=== PATIENT | female | born 1960 | race Caucasian/White ===

== ENCOUNTER → 2019-02-17 07:10 | Outpatient (CLI) | payer OTHER, SELFPAY ==
--- NOTE | 2019-02-17 07:17 | BI_ITS ---
MAMMOGRAPHY - BILATERAL SCREENING REASON FOR EXAM: Female, 58 years old. Routine annual screening examination. PERTINENT HISTORY: Grandmother with breast cancer. Remote right stereotactic breast biopsy. TECHNIQUE: Digital bilateral breast lolis (3D mammographic acquisition) in the CC and MLO projections. 2-D mediolateral oblique (MLO) and craniocaudad (CC) views of both breasts were obtained. CAD: Full Field Digital Mammography with Computer Added Detection was performed. COMPARISON: Comparison is made with prior study dated March 05, 2017 and June 04, 2010. FINDINGS: Breast Composition: The breasts are extremely dense, which lowers the sensitivity of mammography. Possible architectural distortion seen in the superior aspect of the left breast on the mediolateral oblique view. The patient will be recalled for compression spot views in the mediolateral oblique and craniocaudad projections. A 90 degree lateral is recommended as well. A tissue clip marker is once again seen in the slightly upper lateral aspect of the right breast. Benign-appearing small right axillary lymph node. No other significant abnormalities are identified. BI/SCREEN MAMM (CAD) W/LOLIS BILAT IMPRESSION: Questionable area of architectural distortion in the superior aspect of the left breast on the MLO view. The patient will be recalled for additional views. Recall Side: Left Breast ASSESSMENT CATEGORY: BIRADS Category 0: Incomplete. Need additional imaging evaluation. A letter regarding these results will be sent to the patient by the facility within 30 days. Approximately 10% of breast cancers are not detected by mammography. A normal mammogram should not delay biopsy of a clinically suspicious abnormality. [id number] Electronically Signed: Piotr Bay, at 10:26 EDT , Service support ,
== END ==
PROVIDERS: Family Provider Family Medicine; PCP Family Medicine; Referring Provider Family Medicine; Visit Provider Family Medicine
DX: Z12.31 Encounter for screening mammogram for malignant neoplasm of breast (principal)
CPT/HCPCS: 77063; 77067

== ENCOUNTER → 2019-02-28 08:32 | Outpatient (CLI) | payer OTHER, SELFPAY ==
--- NOTE | 2019-02-28 08:35 | BI_ITS ---
MAMMOGRAPHY - UNILATERAL DIAGNOSTIC: LEFT BREAST REASON FOR EXAM: Female, 58 years old. Abnormal screening mammogram. PERTINENT HISTORY: Grandmother with breast cancer. TECHNIQUE: Magnification spot views in the MLO and craniocaudad views were obtained. CAD: Full Field Digital Mammography with Computer Added Detection was performed. COMPARISON: Comparison is made with prior mammogram dated February 17, 2019. FINDINGS: Breast Composition: The breasts are extremely dense, which lowers the sensitivity of mammography. There are no dominant masses or suspicious calcifications. No suspicious abnormality is seen. No other significant abnormalities are identified. BI/DIAG MAMM W/CAD, UNILAT IMPRESSION: Stable unilateral diagnostic mammogram. One year follow-up mammogram recommended. (A) ASSESSMENT CATEGORY: BIRADS Category 2: Benign. A letter regarding these results will be sent to the patient by the facility within 30 days. Approximately 10% of breast cancers are not detected by mammography. A normal mammogram should not delay biopsy of a clinically suspicious abnormality. Electronically Signed: Piotr Bay, at 10:36 EDT , Service support ,
--- NOTE | 2019-02-28 09:15 | US_ITS ---
STUDY: ULTRASOUND BREAST - LEFT REASON FOR EXAM: Female, 58 years old. Abnormal screening mammogram. TECHNIQUE: Axial and longitudinal images of the LEFT breast were performed with a high resolution ultrasound transducer. COMPARISON: Comparison is made with the prior mammogram done earlier today as well as February 17, 2019. FINDINGS: LEFT Breast: The upper outer aspect of the left breast was examined by ultrasound. No suspicious abnormality is seen. US/Breast Limited Unilateral IMPRESSION: Unremarkable targeted ultrasound of the upper outer quadrant of the left breast. ASSESSMENT CATEGORY: BIRADS Category 1: Negative. A letter regarding these results will be sent to the patient by the facility within 30 days. Electronically Signed: Piotr Bay, at 10:37 EDT , Service support ,
== END ==
PROVIDERS: Family Provider Family Medicine; PCP Family Medicine; Referring Provider Family Medicine; Visit Provider Family Medicine
DX: R92.8 Other abnormal and inconclusive findings on diagnostic imaging of breast (principal)
CPT/HCPCS: 76642; 77065

== ENCOUNTER → 2021-02-21 07:10 | Outpatient (CLI) | payer OTHER, SELFPAY ==
--- NOTE | 2021-02-21 07:13 | BI_ITS ---
MAMMOGRAPHY - BILATERAL SCREENING REASON FOR EXAM: Female, 60 years old. Routine annual screening examination. PERTINENT HISTORY: Grandmother with breast cancer. History of prior right stereotactic breast biopsy. TECHNIQUE: Digital bilateral breast lolis (3D mammographic acquisition) in the CC and MLO projections. 2-D mediolateral oblique (MLO) and craniocaudad (CC) views of both breasts were obtained. CAD: Full Field Digital Mammography with Computer Added Detection was performed. COMPARISON: Comparison is made with prior study dated 02/17/2019 and 03/05/2017. FINDINGS: Breast Composition: The breasts are extremely dense, which lowers the sensitivity of mammography. There are no dominant masses or suspicious calcifications. A tissue clip marker is seen in the central slightly lateral aspect of the right breast. No other significant abnormalities are identified. There has been no significant change since the prior study. BI/SCRN MAMM (CAD)W/LOLIS BILAT IMPRESSION: Stable bilateral screening mammogram. Yearly follow-up mammogram recommended. (A) ASSESSMENT CATEGORY: BIRADS Category 2: Benign. A letter regarding these results will be sent to the patient by the facility within 30 days. Approximately 10% of breast cancers are not detected by mammography. A normal mammogram should not delay biopsy of a clinically suspicious abnormality. [id number] Electronically Signed: Piotr Bay MD at 9:02 EDT , Service support ,
== END ==
PROVIDERS: PCP Family Medicine; Referring Provider Family Medicine; Visit Provider Family Medicine
DX: Z12.31 Encounter for screening mammogram for malignant neoplasm of breast (principal)
CPT/HCPCS: 77063; 77067

== ENCOUNTER → 2022-03-07 | Outpatient (CLI) | payer OTHER, SELFPAY ==
--- NOTE | 2022-03-07 07:17 | BI_ITS ---
MAMMOGRAPHY - BILATERAL SCREENING REASON FOR EXAM: Female, 61 years old. Routine annual screening examination. PERTINENT HISTORY: Grandmother with breast cancer. Remote right stereotactic breast biopsy. TECHNIQUE: Digital bilateral breast lolis (3D mammographic acquisition) in the CC and MLO projections. 2-D mediolateral oblique (MLO) and craniocaudad (CC) views of both breasts were obtained. CAD: Full Field Digital Mammography with Computer Added Detection was performed. COMPARISON: Comparison is made with prior study dated 02/21/2021 and 02/28/2019. FINDINGS: Breast Composition: The breasts are extremely dense, which lowers the sensitivity of mammography. I suspect a focal area of architectural distortion in the upper the lateral aspect of the left breast. The patient will be recalled for additional views including 90 degree lateral and compression spot views. A tissue clip marker is once again seen in the central slightly lateral aspect of the right breast. No other significant abnormalities are identified. BI/SCRN MAMM (CAD)W/LOLIS BILAT IMPRESSION: I suspect a focal area of architectural distortion in the upper lateral aspect of the left breast as described. The patient will be recalled for additional views including 90 degree lateral and compression spot views. ASSESSMENT CATEGORY: BIRADS Category 0: Incomplete. Need additional imaging evaluation. A letter regarding these results will be sent to the patient by the facility within 30 days. Approximately 10% of breast cancers are not detected by mammography. A normal mammogram should not delay biopsy of a clinically suspicious abnormality. [id number] Electronically Signed: Piotr Bay MD at 8:50 EDT ,
== END | disposition home or self-care (01) ==
LOC: OPBI 07:16
PROVIDERS: PCP Family Medicine; Visit Provider Family Medicine
DX: Z12.31 Encounter for screening mammogram for malignant neoplasm of breast (principal); Z80.3 Family history of malignant neoplasm of breast
CPT/HCPCS: 77063; 77067

== ENCOUNTER → 2022-03-14 | Outpatient (CLI) | payer OTHER, SELFPAY ==
--- NOTE | 2022-03-14 14:22 | BI_ITS ---
UNILATERAL DIAGNOSTIC: LEFT BREAST MAMMOGRAM AND TARGETED ULTRASOUND REASON FOR EXAM: Female, 61 years old. Additional imaging of architectural distortion PERTINENT HISTORY: Grandmother with breast cancer. Remote right stereotactic breast biopsy. TECHNIQUE: Digital unilateral ML, CC, and MLO with spot compression projections. CAD: Full Field Digital Mammography with Computer Added Detection was performed. Diagnostic real-time grayscale sonographic images of the upper breast were also performed. COMPARISON: Screening mammogram from 03/07/2022, 02/21/2021. Left breast diagnostic mammogram and diagnostic ultrasound from 02/28/2019 MAMMOGRAM FINDINGS: Breast Composition: The breasts are extremely dense, which lowers the sensitivity of mammography. There are no dominant masses or suspicious calcifications. No other significant abnormalities are identified. ULTRASOUND FINDINGS: The upper left breast was evaluated with ultrasound. There is dense breast tissue with no suspicious masses identified. No other significant findings. BI/DIAG MAMM W/CAD, UNILAT IMPRESSION: Stable unilateral diagnostic mammogram. One year follow-up mammogram recommended. (A) Negative unilateral upper left breast diagnostic targeted ultrasound. ASSESSMENT CATEGORY: BIRADS Category 1: Negative. A letter regarding these results will be sent to the patient by the facility within 30 days. Approximately 10% of breast cancers are not detected by mammography. A normal mammogram should not delay biopsy of a clinically suspicious abnormality. Electronically Signed: Giovani José Miguel, at 16:17 EDT ,
== END | disposition home or self-care (01) ==
PROVIDERS: PCP Family Medicine; Visit Provider Family Medicine
DX: R92.8 Other abnormal and inconclusive findings on diagnostic imaging of breast (principal)
CPT/HCPCS: 76642; 77065

== ENCOUNTER → 2023-03-17 | Outpatient (CLI) | payer OTHER, SELFPAY ==
--- NOTE | 2023-03-17 09:02 | BI_ITS ---
MAMMOGRAPHY - BILATERAL SCREENING REASON FOR EXAM: Female, 62 years old. Routine annual screening examination. PERTINENT HISTORY: Grandmother with breast cancer. TECHNIQUE: Digital bilateral breast lolis (3D mammographic acquisition) in the CC and MLO projections. 2-D mediolateral oblique (MLO) and craniocaudad (CC) views of both breasts were obtained. CAD: Full Field Digital Mammography with Computer Added Detection was performed. COMPARISON: Comparison is made with prior study dated March 07, 2022 and February 21, 2021. FINDINGS: Breast Composition: The breasts are extremely dense, which lowers the sensitivity of mammography. There are no dominant masses or suspicious calcifications. No other significant abnormalities are identified. There has been no significant change since the prior study. BI/SCRN MAMM (CAD)W/LOLIS BILAT IMPRESSION: Stable bilateral screening mammogram. Yearly follow-up mammogram recommended. (A) ASSESSMENT CATEGORY: BIRADS Category 1: Negative. A letter regarding these results will be sent to the patient by the facility within 30 days. Approximately 10% of breast cancers are not detected by mammography. A normal mammogram should not delay biopsy of a clinically suspicious abnormality. [id number] Electronically Signed: Piotr Bay MD at 10:35 EDT ,
== END | disposition home or self-care (01) ==
PROVIDERS: PCP Family Medicine; Referring Provider Family Medicine; Visit Provider Family Medicine
DX: Z12.31 Encounter for screening mammogram for malignant neoplasm of breast (principal); Z80.3 Family history of malignant neoplasm of breast
CPT/HCPCS: 77063; 77067

== ENCOUNTER → 2024-03-22 | Outpatient (CLI) | payer MEDICARE, SELFPAY ==
--- NOTE | 2024-03-22 07:56 | BI_ITS ---
MAMMOGRAPHY - BILATERAL SCREENING REASON FOR EXAM: Female, 63 years old. Routine annual screening examination. PERTINENT HISTORY: Grandmother with breast cancer. Prior right stereotactic breast biopsy. TECHNIQUE: Digital bilateral breast lolis (3D mammographic acquisition) in the CC and MLO projections. 2-D mediolateral oblique (MLO) and craniocaudad (CC) views of both breasts were obtained. CAD: Full Field Digital Mammography with Computer Added Detection was performed. COMPARISON: Comparison is made with prior study dated March 17, 2023 and March 07, 2022 FINDINGS: Breast Composition: The breasts are extremely dense, which lowers the sensitivity of mammography. There are no dominant masses or suspicious calcifications. A tissue clip marker is seen in the central lateral aspect of the right breast. No other significant abnormalities are identified. There has been no significant change since the prior study. BI/SCRN MAMM (CAD)W/LOLIS BILAT IMPRESSION: Stable bilateral screening mammogram. Yearly follow-up mammogram recommended. (A) ASSESSMENT CATEGORY: BIRADS Category 2: Benign. A letter regarding these results will be sent to the patient by the facility within 30 days. Approximately 10% of breast cancers are not detected by mammography. A normal mammogram should not delay biopsy of a clinically suspicious abnormality. [id number] Electronically Signed: Piotr Bay MD at 10:11 EDT ,
== END | disposition home or self-care (01) ==
PROVIDERS: PCP Family Medicine; Referring Provider Family Medicine; Visit Provider Family Medicine
DX: Z12.31 Encounter for screening mammogram for malignant neoplasm of breast (principal); Z80.3 Family history of malignant neoplasm of breast
CPT/HCPCS: 77063; 77067

== ENCOUNTER → 2025-04-13 | Outpatient (CLI) | payer MEDICARE, SELFPAY ==
--- NOTE | 2025-04-13 07:25 | BI_ITS ---
EXAM: SCRN MAMM (CAD)W/LOLIS BILAT DATE: 04/13/2025 CLINICAL HISTORY: F, Age 64 y/o , SCREENING Grandmother with breast cancer history of prior right stereotactic breast biopsy. TECHNIQUE: Procedure Code: [id number] Modality: MG Procedure: SCRN MAMM (CAD)W/LOLIS BILAT COMPARISON: Prior exam(s) dated March 22, 2024.. FINDINGS: TISSUE DENSITY: The breasts are extremely dense, which lowers the sensitivity of mammography. Bilateral Breast Mammographic Findings: No significant masses, calcifications or other abnormalities are identified. A tissue clip marker is once again seen in the slightly upper lateral aspect of the right breast. No suspicious masses, areas of developing architectural distortion, or suspicious calcifications. There has been no significant interval change. BI/SCRN MAMM (CAD)W/LOLIS BILAT IMPRESSION: Stable bilateral screening mammogram. OVERALL FINAL ASSESSMENT BI-RADS 2: BENIGN RECOMMENDATION: Routine annual follow-up in 1 Year A letter with findings and recommendations will be mailed to the patient. Reading Location: [id number]
--- OUTSIDE RECORDS SUMMARY | 2025-04-13 07:30 | XMS RPT_ITS | CCD ---
Author Organization [facility] Inform ion Partnership [facility] Care Team Providers Care Information Coordinator Name Role Phone Meera Deion RICARDO Primary Care Provider Unavailable Primary Care Provider Unavailabl e SELF Referring Unavailable Christopherboston Deion RICARDO Primary Care Provider Meera RICARDODeion Primary Care Provider OKSANAA, DEION Primary Care Unavailable ED GONZALEZ Attending Unavailable FREDY MARR Attending Unavailable PETRILLA, DEION Primary Care Unavailable PETRILLA, DEION Attending Unavailable PETRILLA, DEION Primary Care Unavailable ED GONAZLEZ Referring Unavailable PETRILLA, DEION Primary Care Unavailable MIMI ZEPEDA Attending Unavailable ZEPEDA, MIMI Referring Unavailable PETRILLA, DEION Primary Care Unavailable PETRILLA, DEION Attending Unavailable PETRILLA, DEION Primary Care Unavailable MIMI ZEPEDA Attending Unavailable PETRIBIRDIEA, DEION Primary Care Unavailable Petrilla, Dieon Referring Unavailable Petrilla, Deion Attending Unavailable Petrilla, Deion Primary Care Unavailable Medications Current Medications Medication Drug Class(es) Dates Sig (Normalized) Sig (Original) aspirin 81 mg delayed release oral tablet (20 sources) Platelet Aggregation Inhibitor, Nonsteroidal Anti-inflammatory Drug Start: 02-06-2021 take 1 tablet by mouth once daily aspirin 81 MG EC tablet Take 1 tablet by mouth daily. 02/06/2021 Active atorvastatin 10 mg oral tablet (20 sources) HMG-CoA Reductase Inhibitor Start: 01-31-2022 End: 01-23-2025 atorvastatin (Lipitor) 10 MG tablet TAKE 1 TABLET DAILY IN THE EVENING AFTER SUPPER 90 tablet 1 01/23/2025 Active baclofen 10 mg oral tablet (11 sources) gamma-Aminobutyric Acid-ergic Agonist Start: 06-23-2024 End: 05-10-2025 take 1 tablet by mouth twice daily baclofen (Lioresal) 10 MG tablet Take 1 tablet (10 mg) by mouth 2 times daily. 60 tablet 04/10/2025 05/10/2025 Active cholecalciferol 0.025 mg oral tablet (20 sources) Vitamin D Start: 01-31-2022 take 1 tablet by mouth once daily cholecalciferol (Vitamin D-3) 25 MCG (1000 UT) tablet Take 1 tablet by mouth daily. 01/31/2022 Active fluticasone propionate 0.05 mg/actuat metered dose nasal spray (16 sources) Corticosteroid Start: 05-04-2024 End: 05-04-2025 take 2 spray(s) nasal route once daily fluticasone (Flonase) 50 MCG/ACT nasal spray Administer 2 sprays into each nostril daily. Shake gently. Before first use, prime pump. After use, clean tip and replace cap. 16 g 5 05/04/2024 05/04/2025 Active levothyroxine sodium 0.025 mg oral tablet (20 sources) l-Thyroxine Start: 03-03-2024 End: 06-23-2025 take 1 tablet by mouth once daily levothyroxine (Synthroid, Levoxyl) 25 MCG tablet Take 1 tablet (25 mcg) by mouth daily. 90 tablet 3 06/23/2024 06/23/2025 Active 24 hr metoprolol succinate 200 mg extended release oral tablet (20 sources) beta-Adrenergic Suad Start: 03-15-2024 End: 03-16-2025 metoprolol succinate XL (Toprol-XL) 200 MG 24 hr tablet TAKE 1 TABLET DAILY (DO NOT CRUSH OR CHEW) 90 tablet 3 02/20/2025 Active Start: 06-21-2022 End: 03-16-2024 take 1 tablet by mouth once daily metoprolol succinate XL (Toprol-XL) 100 MG 24 hr tablet Take 1 tablet (100 mg) by mouth daily for 90 doses. 90 tablet 1 08/11/2022 11/09/2022 Active take 1 tablet by jacki th twice daily metoprolol tartrate, short acting, (LOPRESSOR) 25 mg tablet Take 25 mg by mouth two times a day. Active Multiple Vitamin (Multi-Vitamin) tablet (20 sources) take 1 tablet by jacki th in the morning Multiple Vitamin (Multi-Vitamin) tablet Take 1 tablet by mouth in the morning. Active take 1 tablet by mouth in the mo rning Multiple Vitamin (Multi-Vitamin) tablet Take 1 tablet by mouth in the morning. 0 Active multivitamin tablet (2 sources) take 1 tablet by mouth once daily multivitamin tablet Take 1 tablet by mouth once daily. Active ondansetron 4 mg oral tablet (5 sources) Serotonin-3 Receptor Antagonist Start: End: take 1 tablet by mouth every eight hours as needed for nausea and vomiting and nausea and nausea ondansetron (Zofran) 4 MG tablet Indications: Nausea Take 1 tablet (4 mg) by mouth every 8 hours as needed for nausea or vomiting for up to 3 days. 9 tablet 05/15/2024 05/18/2024 Active Start: 05-15-2024 End: 05-15-2024 4 mg, IntraVENous, Once, On 05/15/24 at 0745, For 1 dose spironolactone 50 mg oral tablet (20 sources) Aldosterone Antagonist Start: 01-31-2022 End: 01-23-2025 spironolactone (Aldactone) 50 MG tablet TAKE 1 TABLET DAILY 90 tablet 1 01/23/2025 Active Completed/Discontinued Medications Medication Drug Class(es) Dates Sig (Normalized) Sig (Original) cefTRIAXone (Rocephin) 1,000 mg in sodium chloride 0.9 % 50 mL IVPB Mini-Bag Plus (2 sources) Start: 05-15-2024 End: 05-15-2024 1,000 mg, IntraVENous, at 100 mL/hr, Administer over 30 Minutes, Once, On 05/15/24 at 0810, For 1 dose, Mini-Bag Plus bag, Suspected Indication (Select all that apply): Urinary Tract Infection cephalexin 500 mg oral capsule (6 sources) Cephalosporin Antibacterial Start: 05-15-2024 End: 06-23-2024 take 1 capsule by mouth twice daily cephalexin (Keflex) 500 MG capsule Indications: Left lower quadrant abdominal pain Take 1 capsule (500 mg) by mouth 2 times daily for 3 days. 6 capsule 05/18/2024 06/23/2024 Discontinued (Therapy completed) iopamidol (Isovue-370) 76 % injection 75 mL (2 sources) Start: 05-15-2024 End: 05-15-2024 take 75 mL intravenously once as needed 75 mL, IntraVENous, IMG once PRN, contrast, Starting on 05/15/24 at 0727, For 1 dose nitrofurantoin, macrocrystals 25 mg / nitrofurantoin, monohydrate 75 mg oral capsule (8 sources) Nitrofuran Antibacterial Start: 05-01-2024 End: 05-06-2024 take 1 capsule by mouth in the morning nitrofurantoin, macrocrystal-monohy drate, (Macrobid) 100 MG capsule Take 100 mg by mouth in the morning and 100 mg in the evening. 05/01/2024 05/06/2024 phenazopyridine hydrochloride 200 mg delayed release oral tablet (10 sources) Start: 05-03-2024 End: 06-23-2024 take 1 tablet by mouth three times daily as needed for muscle spasms phenazopyridine (Pyridium) 200 MG tablet Take 1 tablet (200 mg) by mouth 3 times daily as needed for bladder spasms. 30 tablet 05/03/2024 06/23/2024 Discontinued (Therapy completed) Problems Active Problems Problem Classification Problem Date Documented Da te Episodic/Chronic Disorders of lipid metabolism (20 sources) Hypercholesterolem ia; Translations: [Pure hypercholesterolem ia, unspecified] Onset: 10-02-2021 02-10-2023 Chronic Essential hypertension (20 sources) Essential hypertension; Translations: [Essential (primary) hypertension] Onset: 02-16-2017 02-10-2023 Chronic Other and unspecified benign neoplasm (1 source) Dysplastic nevus of skin; Translations: [Melanocytic nevi, unspecified] 05-03-2024 Episodic Other screening for suspected conditions (not mental disorders or infectious disease) (6 sources) Patient encounter status; Translations: [Encounter for screening mammogram for malignant neoplasm of breast] Onset: 04-10-2025 02-10-2023 Episodic Paralysis (20 sources) Hemiplegic cerebral palsy; Translations: [Other cerebral palsy] Onset: 02-16-2017 05-15-2022 Chronic Thyroid disorders (20 sources) Hypothyroidism; Translations: [Hypothyroidism, unspecified] Onset: 08-03-2023 04-24-2024 Chronic Past or Other Problems Problem Classification Problem Date Documented Da te Episodic/Chronic Abdominal pain (11 sources) Flank pain; Translations: [Unspecified abdominal pain] Onset: 05-03-2024 05-03-2024 Episodic Genitourinary symptoms and ill-defined conditions (4 sources) Dysuria; Translations: [Dysuria] Onset: 05-03-2024 05-01-2024 Episodic Nausea and vomiting (4 sources) Nausea; Translations: [Nausea] Onset: 05-15-2024 05-15-2024 Episodic Other and unspecified benign neoplasm (2 sources) Melanocytic nevi, unspecified; Translations: [Melanocytic nevi, unspecified] Onset: 05-03-2024 Episodic Other connective tissue disease (10 sources) Spasm of cervical paraspinous muscle; Translations: [Other muscle spasm] Onset: 06-23-2024 06-23-2024 Episodic Other connective tissue disease (2 sources) Other muscle spasm; Translations: [Other muscle spasm] Onset: 06-23-2024 Episodic Residual codes; unclassified (20 sources) Family history of breast cancer; Translations: [Family history of malignant neoplasm of breast] Onset: 08-07-2021 05-15-2022 Episodic Residual codes; unclassified (20 sources) FH: Alzheimer's disease; Translations: [Family history of epilepsy and other diseases of the nervous system] Onset: 02-06-2020 05-15-2022 Episodic Urinary tract infections (4 sources) Urinary tract infectious disease; Translations: [Urinary tract infection, site not specified] Onset: 05-15-2024 05-15-2024 Episodic Results Test Name Value Interpretation Reference Range Facility [facility] 04-10-2025 36 Recent Visits Date Type Provider Dept 08/25/24 Office Visit Deion Estes, [facility] 06/23/24 Office Visit Deion Estes DO [facility] 05/18/24 Office Visit Fredy Marr PA-C [facility] 05/03/24 Office Visit Mimi Zepeda, [facility] Showing recent visits within past 365 days and meeting all other requirements Future Appointments No visits were found meeting these conditions. Showing future appointments within next 90 days and meeting all other requirements Requested Prescriptions Pending Prescriptions Disp Refills baclofen (Lioresal) 10 MG tablet [Pharmacy Med Name: BACLOFEN 10 MG TABLET] 180 tablet 1 Sig: TAKE 1 TABLET BY MOUTH TWICE A DAY Provider: Deion Estes DO Verified pharmacy: yes Verified day(s) supplied: yes Verified refill(s) needed (previous prescription showing no refills in chart): Yes Have you received any controlled medications from any other provider? N/A Overdue for visit: No If yes - patient scheduled? No Most recent labs completed in chart? N/A [facility] 36on 04-04-2025 36 Faxed and confirmed [facility] 36 Name of caller: Joe radha Contact phone number: [phone] Relationship to Patient: patient Provider: Dr Estes Practice: [facility] Chief Complaint/Reason for Call: José called stating she needs her mammogram order sent to [facility]. Please advise. Best time of day caller can be reached: any Patient advised that office/PCP has 24-48 business hours to return their call: Yes [facility] 36on 03-06-2025 36 Patient aware. [facility] 36 Name of caller: Joe radha Contact phone number: [phone] Relationship to Patient: patient Provider: Meera Practice: [facility] Chief Complaint/Reason for Call: Pt states it is time to get her yearly mammogram and would like Dr Estes to place that order. Please call pt when this order has been placed so she can schedule. Best time of day caller can be reached: ANY Patient advised that office/PCP has 24-48 business hours to return their call: Yes [facility] 36on 02-20-2025 36 Recent Visits Date Type Provider Dept 08/25/24 Office Visit Deion Estes, DO [facility] 06/23/24 Office Visit Deion Estes, DO [facility] 05/18/24 Office Visit Fredy Marr PA-C [facility] 05/03/24 Office Visit Mimi Zepeda, DO [facility] 02/23/24 Office Visit Deion Estes, DO [facility] Showing recent visits within past 365 days and meeting all other requirements Future Appointments Date Type Provider Dept 04/05/25 Appointment Deion Estes, DO [facility] Showing future appointments within next 90 days and meeting all other requirements Requested Prescriptions Pending Prescriptions Disp Refills metoprolol succinate XL (Toprol-XL) 200 MG 24 hr tablet [Pharmacy Med Name: METOPROLOL SUCCINATE ER TABS 200MG] 90 tablet 3 Sig: TAKE 1 TABLET DAILY (DO NOT CRUSH OR CHEW) Provider: Deion Estes DO Verified pharmacy: yes Verified day(s) supplied: yes Verified refill(s) needed (previous prescription showing no refills in chart): Yes Have you received any controlled medications from any other provider? N/A Overdue for visit: No If yes - patient scheduled? Yes Most recent labs completed in chart? Yes Hypertension: Lab Results Component Value Date NA 135 05/15/2024 K 4.5 05/15/2024 EGFR 66.6 05/15/2024 BUN 23 (H) 05/15/2024 CREATININE 0.95 05/15/2024 [facility] 36on 01-23-2025 36 Recent Visits Date Type Provider Dept 08/25/24 Office Visit Deion Estes, DO [facility] 06/23/24 Office Visit Deion sEtes, DO [facility] 05/18/24 Office Visit Fredy Marr PA-C [facility] 05/03/24 Office Visit Mimi Zepeda, DO [facility] 02/23/24 Office Visit Deion Estes DO [facility] Showing recent visits within past 365 days and meeting all other requirements Future Appointments Date Type Provider Dept 02/27/25 Appointment Deion Estes DO [facility] Showing future appointments within next 90 days and meeting all other requirements Requested Prescriptions Pending Prescriptions Disp Refills atorvastatin (Lipitor) 10 MG tablet [Pharmacy Med Name: ATORVASTATIN TABS 10MG] 90 tablet 3 Sig: TAKE 1 TABLET DAILY IN THE EVENING AFTER SUPPER spironolactone (Aldactone) 50 MG tablet [Pharmacy Med Name: SPIRONOLACTONE TABS 50MG] 90 tablet 3 Sig: TAKE 1 TABLET DAILY Provider: Deion Estes DO Verified pharmacy: yes Verified day(s) supplied: yes Verified refill(s) needed (previous prescription showing no refills in chart): Yes Have you received any controlled medications from any other provider? N/A Overdue for visit: No If yes - patient scheduled? Yes Most recent labs completed in chart? Yes Hypertension: Lab Results Component Value Date NA 135 05/15/2024 K 4.5 05/15/2024 EGFR 66.6 05/15/2024 BUN 23 (H) 05/15/2024 CREATININE 0.95 05/15/2024 and Cholesterol: Lab Results Component Value Date CHOLESTEROLT 155 02/23/2024 HDLCHOLESTER 66 02/23/2024 TRIGLYCERIDE 124 02/23/2024 LDLCHOLESTER 68 02/23/2024 CHOLHDLCRATI 2.3 02/23/2024 NONHDLCHOLES 89 02/23/2024 [facility] 36on 10-17-2024 36 Recent Visits Date Type Provider Dept 08/25/24 Office Visit Deion Estes, DO [facility] 06/23/24 Office Visit Deion Estes, DO [facility] 05/18/24 Office Visit Fredy Marr PA-C [facility] 05/03/24 Office Visit Mimi Zepeda, [facility] 02/23/24 Office Visit Deion Estes, [facility] Showing recent visits within past 365 days and meeting all other requirements Future Appointments No visits were found meeting these conditions. Showing future appointments within next 90 days and meeting all other requirements Requested Prescriptions Pending Prescriptions Disp Refills baclofen (Lioresal) 10 MG tablet [Pharmacy Med Name: BACLOFEN 10 MG TABLET] 180 tablet 1 Sig: TAKE 1 TABLET BY MOUTH TWICE A DAY Provider: Deion Estes DO Verified pharmacy: yes Verified day(s) supplied: yes Verified refill(s) needed (previous prescription showing no refills in chart): Yes Have you received any controlled medications from any other provider? No Overdue for visit: No If yes - patient scheduled? Yes Most recent labs completed in chart? N/A None [facility] 37on 08-25-2024 37 Call with BP reading s or stop in for BP ch 4 wks [facility] Office Visiton 08-25-2024 Follow-up visit [id number] José Jiménez 1960 F Date Provider Department Center 08/25/2024 DEION GARCIA [facility] Family History Problem Relation Age of Onset Hypertension Mother Comments: advanced dementia 85 in 01/19 Dementia Mother 78 Hypertension Father Comments: CRF Coronary artery disease Father 70 Comments: CABG smoker Prostate cancer Father Comments: at age 81, in 2013 Other Sister Comments: divert ds, [place] Stroke Maternal Grandmother Comments: in 60s Coronary artery disease Maternal Grandfather Comments: in 60s Breast cancer Paternal Grandmother Comments: age 89 old age Coronary artery disease Paternal Grandfather Comments: in 70 Family Status - Relation Status Age at Mother Father Sister Alive Maternal Grandmother Maternal Grandfather Paternal Grandmother Paternal Grandfather Level of Service:63881 [place] OFFICE/OUTPATIENT ESTABLISHED MOD MDM 30 MIN Reason for Visit and Comments: Follow-up [843773] - Med Check [facility] Progress Noteon 08-25-2024 Progress Note [facility] - [address] [facility] [id number] Visit type: Established Patient Reason for Visit: Follow-up (Med Check) Assessment / Plan: José was seen today for follow-up. Diagnoses and all orders for this visit: Essential hypertension (Primary) Comments: Generally well-controlled at home, BP check 4 weeks continue metoprolol and Aldactone Acquired hypothyroidism Comments: Stable on Levothyroid Hypercholesterolemia Comments: Stable on Lipitor Cerebral palsy, hemiplegic (CMS/HCC) (HCC) Comments: stable on Baclofen, stretches, water aerobics Subjective: Patient ID: José Jiménez is a 64 y.o. female. 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 She has done very well on the baclofen twice daily. Goes to water aerobics and does stretches. Review of Systems no recent earache sore throat or cough. Had a mild cold a few months ago. No purulent phlegm or fever. Denies chest pain palpitations or dyspnea on exertion. No heartburn or abdominal pain. Bowels are regular no melena or blood. No recurrent dysuria. Due for Cologuard exam in the fall. Mammogram up-to-date. No new concerns. She is looking forward to her retiring in about a year. No Known Allergies Current Outpatient Medications on File Prior to Visit Medication Sig Dispense Refill aspirin 81 MG EC tablet Take 1 tablet by mouth daily. atorvastatin (Lipitor) 10 MG tablet TAKE 1 TABLET DAILY IN THE EVENING AFTER SUPPER 90 tablet 3 baclofen (Lioresal) 10 MG tablet Take 1 tablet (10 mg) by mouth 2 times daily. 60 tablet 5 cholecalciferol (Vitamin D-3) 25 MCG (1000 UT) tablet Take 1 tablet by mouth daily. fluticasone (Flonase) 50 MCG/ACT nasal spray Administer 2 sprays into each nostril daily. Shake gently. Before first use, prime pump. After use, clean tip and replace cap. 16 g 5 levothyroxine (Synthroid, Levoxyl) 25 MCG tablet Take 1 tablet (25 mcg) by mouth daily. 90 tablet 3 metoprolol succinate XL (Toprol-XL) 200 MG 24 hr tablet TAKE 1 TABLET DAILY (DO NOT CRUSH OR CHEW) 90 tablet 1 Multiple Vitamin (Multi-Vitamin) tablet Take 1 tablet by mouth in the morning. spironolactone (Aldactone) 50 MG tablet TAKE 1 TABLET DAILY 90 tablet 3 [DISCONTINUED] metoprolol succinate XL (Toprol-XL) 200 MG 24 hr tablet Take 1 tablet (200 mg) by mouth daily. Do not crush or chew. 90 tablet 1 No current facility-administered medications on file prior to visit. Patient Active Problem List Diagnosis Family history of breast cancer Hypercholesterolemia Family history of Alzheimer's disease Essential hypertension Cerebral palsy, hemiplegic (CMS/HCC) (HCC) Hypothyroidism Cervical paraspinal muscle spasm Social History Tobacco Use Smoking status: Never Smokeless tobacco: Never Substance Use Topics Alcohol use: No Alcohol/week: 0.0 standard drinks of alcohol Past Surgical History: Procedure Laterality Date BREAST BIOPSY Right 2007 CATARACT EXTRACTION W/ INTRAOCULAR LENS IMPLANT, BILATERAL 12/2022 Dr. Ledesma, [place] WRIST TENDON SURGERY (HISTORICAL) Left 2009 Family History Problem Relation Name Age of Onset Hypertension Mother advanced dementia 85 in 01/19 Dementia Mother 78 Hypertension Father CRF Coronary artery disease Father 70 CABG smoker Prostate cancer Father at age 81, in 2013 Other ([id number]) Sister Ama Hernandez divert ds, [place] Stroke Maternal Grandmother in 60s Coronary artery disease Maternal Grandfather in 60s Breast cancer Paternal Grandmother Joi age 89 old age Coronary artery disease Paternal Grandfather in 70 Objective: BP (!) 144/78 Pulse 68 Temp 36.2 ?C (97.1 ?F) (Temporal) Ht 5' 2 (1.575 m) Wt 155 lb 9.6 oz (70.6 kg) SpO2 96% BMI 28.46 kg/m? Physical Exam very pleasant alert and engaging. Normal eardrums and oropharynx. No neck masses JVD adenopathy or thyroid lesions. No carotid bruits. Heart is regular without ectopy but she does have a faint midsystolic murmur heard at the right second intercostal space lungs are clear. Abdomen soft nontender without pain hepatosplenomegaly or masses. Trace pretibial edema is chronic. Her left hemiaplasia is stable. She does note less facial and neck spasm on her bike often. Reviewed past CT of the abdomen. Resolved UTI. [facility] 36on 08-24-2024 36 Recent Visits Date Type Provider Dept 06/23/24 Office Visit Deion Estes, [facility] 05/18/24 [facility]24 Office Visit Mimi Zepeda, DO [facility] 02/23/24 Office Visit Deion Estes DO [facility] Showing recent visits within past 365 days and meeting all other requirements Future Appointments Date Type Provider Dept 08/25/24 Appointment Deion Estes DO [facility] Showing future appointments within next 90 days and meeting all other requirements Requested Prescriptions Pending Prescriptions Disp Refills metoprolol succinate XL (Toprol-XL) 200 MG 24 hr tablet [Pharmacy Med Name: METOPROLOL SUCCINATE ER TABS 200MG] 90 tablet 3 Sig: TAKE 1 TABLET DAILY (DO NOT CRUSH OR CHEW) Provider: Deion Estes DO Verified pharmacy: yes Verified day(s) supplied: yes Verified refill(s) needed (previous prescription showing no refills in chart): Yes Have you received any controlled medications from any other provider? N/A Overdue for visit: No If yes - patient scheduled? Yes Most recent labs completed in chart? Yes Hypertension: Lab Results Component Value Date NA 135 05/15/2024 K 4.5 05/15/2024 EGFR 66.6 05/15/2024 BUN 23 (H) 05/15/2024 CREATININE 0.95 05/15/2024 [facility] 36on 07-04-2024 36 Orders cancelled [facility] 36 Name of caller: Joe garcia Contact phone number: [phone] Relationship to Patient: patient Provider: Dr. Estes Practice: [facility] Chief Complaint/Reason for Call: pt called and wanted to inform Dr. Estes that baclofen (Lioresal) 10 MG tablet is working for her. Best time of day caller can be reached: any Patient advised that office/PCP has 24-48 business hours to return their call: N/A [facility] 36 yes [facility] 36on 07-03-2024 36 We have been unable to reach your patient to schedule their testing. Test Name: CT ABDOMEN PELVIS W CONTRAST 2nd attempt//Reactivityhart message//TE to office//07.03.24 KGK 1st attempt // left message asking for a call back // [facility] 05/20/24 [facility] 37on 06-23-2024 37 Personalized Preventative Plan for José Alarcon Tino - 06/23/2024 Medicare offers a range of preventative health benefits. Some of the tests and screenings are paid in full while others may be subject to a deductible, co-insurance, and / or copay. Some of these benefits include a comprehensive review of your medical history including lifestyle, illnesses that may run in your family, and various assessments and screenings as appropriate. After reviewing your medical record and screening and assessments performed today, your provider may have ordered immunizations, labs, imaging, and / or referrals for you. A list of these orders (if applicable) as well as your Preventative Care list are included within your After Visit Summary for your review. Other Preventative Recommendations: A preventive eye exam by an exercise equipment specialist is recommended every 1-2 years to screen for glaucoma, cataracts, macular degeneration, and other eye disorders. A preventive dental visit is recommended every 6 months. Try to get at least 150 minutes of exercise per week or 10,000 steps per day on a pedometer. You need 1200-1500mg of calcium and [id number] international units of vitamin D per day. It is possible to meet your calcium requirement with diet alone, but a vitamin D supplement is usually necessary to meet this goal. When exposed to the sun, use a sunscreen that protects against both UVA and UVB radiation with an SPF of 30 or greater. Reapply every 2-3 hours or after sweating, drying off with a towel, or swimming. Always wear a seat belt when traveling in a car. Always wear a helmet when riding a bicycle or a motorcycle Normal [facility] ECG 12 lead - CLINIC PERFORM EDon 06-23-2024 [facility] Office Visiton 06-23-2024 Follow-up visit [id number] José Jiménez 1960 F Date Provider Department Center 06/23/2024 [id number] LAUREN [facility] Family History Problem Relation Age of Onset Hypertension Mother Comments: advanced dementia 85 in 01/19 Dementia Mother 78 Hypertension Father Comments: CRF Coronary artery disease Father 70 Comments: CABG smoker Prostate cancer Father Comments: at age 81, in 2013 Other Sister Comments: divert ds, [place] Stroke Maternal Grandmother Comments: in 60s Coronary artery disease Maternal Grandfather Comments: in 60s Breast cancer Paternal Grandmother Comments: age 89 old age Coronary artery disease Paternal Grandfather Comments: in 70 Family Status - Relation Status Age at Mother Father Sister Alive Maternal Grandmother Maternal Grandfather Paternal Grandmother Paternal Grandfather Level of Service:G0438 [place] PPPS, INITIAL VISIT Reason for Visit and Comments: Welcome To Medicare [675] Flu Vaccine [189] Normal [facility] Progress Noteon 06-23-2024 Progress Note [facility] - [address] [facility] [address] Dept: [phone] Dept Chief Complaint: José Jiménez is an 63 y.o. female here for an annual wellness visit. I present the patient with history of cerebral palsy with a left hemiplegai presents for first-time annual wellness exam. Past medical, surgical, family and social history reviewed and chart updated. Breast cancer screening up-to-date. Colon cancer screening due next year Assessment/Plan : Problem List Items Addressed This Visit Hypercholesterolemia Essential hypertension Cerebral palsy, hemiplegic (CMS/HCC) (HCC) Hypothyroidism Cervical paraspinal muscle spasm Other Visit Diagnoses Encounter for initial annual wellness visit (AWV) in Medicare patient - Primary Medicare welcome visit Relevant Orders ECG 12 lead - CLINIC PERFORMED (Completed) I have reviewed and reconciled the medication list with the patient today. Current Outpatient Medications Medication Sig Dispense Refill aspirin 81 MG EC tablet Take 1 tablet by mouth daily. atorvastatin (Lipitor) 10 MG tablet TAKE 1 TABLET DAILY IN THE EVENING AFTER SUPPER 90 tablet 3 cholecalciferol (Vitamin D-3) 25 MCG (1000 UT) tablet Take 1 tablet by mouth daily. fluticasone (Flonase) 50 MCG/ACT nasal spray Administer 2 sprays into each nostril daily. Shake gently. Before first use, prime pump. After use, clean tip and replace cap. 16 g 5 metoprolol succinate XL (Toprol-XL) 200 MG 24 hr tablet Take 1 tablet (200 mg) by mouth daily. Do not crush or chew. 90 tablet 1 Multiple Vitamin (Multi-Vitamin) tablet Take 1 tablet by mouth in the morning. spironolactone (Aldactone) 50 MG tablet TAKE 1 TABLET DAILY 90 tablet 3 baclofen (Lioresal) 10 MG tablet Take 1 tablet (10 mg) by mouth 2 times daily. 60 tablet 5 levothyroxine (Synthroid, Levoxyl) 25 MCG tablet Take 1 tablet (25 mcg) by mouth daily. 90 tablet 3 No current facility-administered medications for this visit. Also reviewed during this visit: Med Hx Surg Hx Fam Hx The following health maintenance schedule was reviewed with the patient and provided in printed form in the after visit summary: Health Maintenance Topic Date Due Medicare Initial Physical (IPPE) Never done Bone Density Scan Never done MMR Vaccines (1 of 1 - Standard series) Never done Hepatitis C Screening Never done Diabetes Screening Never done DTaP/Tdap/Td Vaccines (1 - Tdap) Never done Cervical Cancer Screening Never done Zoster Vaccines (1 of 2) Never done Medicare Advantage Annual Wellness Visit Never done COVID-19 Vaccine ( - 2023- season) 2024 Mammogram 03/22/2025 TSH Level 04/20/2025 Depression Screening 06/23/2025 Colorectal Cancer Screening 09/16/2028 Lipid Panel 02/22/2029 RSV Immunization for Adults (1 - 1-dose 75+ series) 2033 Influenza Vaccine Completed Pneumococcal Vaccine: 65+ Years Completed RSV Immunization under 20 Months Aged Out HIB Vaccines Aged Out Hepatitis B Vaccines Aged Out IPV Vaccines Aged Out Hepatitis A Vaccines Aged Out Meningococcal Vaccine Aged Out Rotavirus Vaccines Aged Out HPV Vaccines Aged Out List of current healthcare providers: Patient Care Team: Deion Estes DO as PCP - General Orders Placed This Encounter Procedures Flu vaccine (FLUAD), trivalent, adjuvanted, preservative-free (ages 65+) ECG 12 lead - CLINIC PERFORMED Order Specific Question: Reason for exam: Answer: Other Order Specific Question: Explanatory comment: Answer: medicare annual wellness Review of Systems no recent earache sore throat or cough. Recent UTI symptoms resolved. No constitutional symptoms. Denies chest pain shortness of breath or cough. No dysphagia or abdominal pain. Bowels are regular. No melena or blood. No breast complaints. No postmenopausal vaginal bleeding. Her only concerns today's have months of spasm of the left side of her neck. History of substantial left extremity spasm and contracture of the left hand. No true radicular symptoms of the hand or fingers. No change in vision or speech. Physical Exam very pleasant cooperative. Normal ENT. Normal eardrums and oropharynx. No carotid bruits neck masses or thyroid lesions. Heart is regular without gallops or murmurs. Lungs are clear. Abdomen without pain hepatosplenomegaly or masses. No bruits. There is some twitching over the left side of her face which is chronic. Negative Spurling's. Upper extremity strength is actually pretty good except of the left hand contraction. Reflexes are hyperactive on the left. She has some spasm of the left lower extremity as well. No Vivian's. No Babinski. Objective : BP 132/78 Pulse 68 Temp 37 ?C (98.6 ?F) (Temporal) Ht 5' 2 (1.575 m) Wt 156 lb (70.8 kg) SpO2 97% BMI 28.53 kg/m? Vision Screening Right eye Left eye Both eyes Without correct (more content not included)... Normal [facility] Office Visiton 05-18-2024 Follow-up visit [id number] José Jiménez 1960 F Date Provider Department Center 05/18/2024 [id number] SILVA [facility] Family History Problem Relation Age of Onset Hypertension Mother Comments: advanced dementia 85 in 6/19 Dementia Mother 78 Hypertension Father Comments: CRF Coronary artery disease Father Comments: smoker Prostate cancer Father Comments: at age 81, in 2014 Other Sister Comments: divert ds, [place] Stroke Maternal Grandmother Comments: in 60s Coronary artery disease Maternal Grandfather Comments: in 60s Breast cancer Paternal Grandmother Comments: age 89 old age Coronary artery disease Paternal Grandfather Comments: in 70 Family Status - Relation Status Age at Mother Father Sister Alive Maternal Grandmother Maternal Grandfather Paternal Grandmother Paternal Grandfather Level of Service:30478 [place] OFFICE/OUTPATIENT ESTABLISHED LOW MDM 20 MIN Reason for Visit and Comments: ER Follow-up [831] - For a UTI Flu Vaccine [189] - Patient has declined to receive influenza vaccine in the office. Normal [facility] Progress Noteon 05-18-2024 Progress Note -chronic and unstabl e with current elevation suspect due to currently being sick will continue to monitor Normal [facility] Progress Note [facility] - [address] [facility] [address] Dept: [phone] Dept Loc: [phone] Visit type: Established Patient Reason for Visit: ER Follow-up (For a UTI) and Flu Vaccine (Patient has declined to receive influenza vaccine in the office. /) Assessment and Plan 1. Left lower quadrant abdominal pain Comments: acute issue will need to continue to monitor going to extend Keflex for 3 more days treated for pyelonephritis. Orders: - POCT Urinalysis dipstick - Urine culture (clean catch) - cephalexin (Keflex) 500 MG capsule; Take 1 capsule (500 mg) by mouth 2 times daily for 3 days., Starting 05/18/2024, Until 05/21/2024, Normal 2. Elevated blood pressure reading in office with diagnosis of hypertension 3. Essential hypertension Assessment & Plan: -chronic and unstable with current elevation suspect due to currently being sick will continue to monitor Blood pressure elevated today, history of being normal will continue to monitor Follow up if symptoms worsen or fail to improve, for Next scheduled follow-up. Subjective HPI this is a 63-year-old female underlying history of hyperlipidemia hypertension and cerebral palsy with hypothyroidism who was seen and evaluated in the ER on 05/15 for concerns of abdominal pain with nausea for the last several weeks. Patient was previously seen in the [facility] urgent care and was prescribed Macrobid for UTI and she followed up with her primary care physician on 05/03. While in the ER CT of the abdomen pelvis was done which was otherwise normal. Urine still showed signs of infection with positive nitrates protein bilirubin and urobilinogen and loaded bacteria. White count was normal at 6.1 and chemistry panel showed mild dehydration with a BUN of 23. However unfortunately no formal urine culture was done at this time in the ER the patient was placed on Keflex. Returns to office, abdomen is better but feeling little nauseated and some mild left lower quadrant pain. Was having urinary symptoms with increasing pain and frequency does report some mild left lower quadrant abdominal pain no history of diverticular disease has never had a colonoscopy in the past but she denies any blood in your stool no stool differences at this point time states nausea seems to be greatly improved on the Zofran did state she was placed on Keflex she is concerned and worried that it is coming back or that will get worse and she wants to make sure she stays ahead of it. Per ER note dated 05/15, José Jiménez is a 63 y.o. who presents to the emergency department with chief complaint of left lower quadrant abdominal pain with nausea that has been present over approximately the last 2 weeks. Patient has been to urgent care and has seen her primary care regarding this. A KUB was obtained and showed some right renal stones but no evidence of other acute or abnormal findings. At urgent care she had a urinalysis which had some blood and leukocytes and they initiated treatment with Bactrim and Pyridium for possible UTI. Urine cultures did not show evidence of UTI though patient did report someimprovement with Pyridium in regards to some dysuria she has been experiencing. Continues to have worsening pain. Primary care has ordered a CT scan of the abdomen pelvis however preauthorization has not been approved yet. Pain was worse this morning so they decided to come to the emergency department for evaluation. Patient denies any bloody stools. No other complaints. Review of Systems Constitutional: Negative for chills and fever. HENT: Negative for congestion and sore throat. Respiratory: Negative for cough and shortness of breath. Cardiovascular: Negative for chest pain. Gastrointestinal: Positive for abdominal pain (mild persistent left lower quadrant pain). Negative for diarrhea, nausea and vomiting. Genitourinary: Negative for difficulty urinating, dysuria, frequency and urgency. Musculoskeletal: Negative for back pain. Neurological: Negative for dizziness and light-headedness. All other systems reviewed and are negative. No Known Allergies Outpatient Medications Prior to Visit Medication Sig Dispense Refill aspirin 81 MG EC tablet Take 1 tablet by mouth daily. atorvastatin (Lipitor) 10 MG tablet TAKE 1 TABLET DAILY IN THE EVENING AFTER SUPPER 90 tablet 3 cephalexin (Keflex) 500 MG capsule Take 1 capsule (500 mg) by mouth 2 times daily for 7 days. 14 capsule 0 cholecalciferol (Vitamin D-3) 25 MCG (1000 UT) tablet Take 1 tablet by mouth daily. fluticasone (Flonase) 50 MCG/ACT nasal spray Administer 2 sprays into each nostril daily. Shake gently. Before first use, prime pump. After use, clean tip and replace cap. 16 g 5 levothyroxine (Synthroid, Levoxyl) 25 MCG tablet Take 1 tablet (25 mcg) by mouth daily. 30 tablet 11 (more content not included)... Normal [facility] Urinalysis macro (dipstick) panel (U)on 05-18-2024 Bilirubin, UA Negative [facility] Blood, UA Negative [facility] Glucose, UA Negative [facility] Ketones, POC (mg/dL) Negative [facility] Leukocytes, UA Negative [facility] Nitrite, UA Negative [facility] pH, UA 6.0 [facility] Protein, UA Negative [facility] Spec Grav, [facility].[address] [facility] [address], [facility] 36on 05-16-2024 36 Auth approved. Faxed orders to [facility] for pt to be sched - [facility] will sched/advise pt. My chart mess sent to patient with info to sched. [facility] 36on 05-15-2024 36 S: Patient spoke wit h [facility] nurse regarding abdominal pain. B: Onset of symptoms/concern 05/15/2024. A: Patient reports a constant 8/10 LLQ abdominal pain and intermittent nausea that started yesterday, states pain has been ongoing since 05/12 OV, but she has not had pain for x2-3 days. Patient woke up yesterday with pain and nausea which is still present, also reports urinary frequency. Patient is eating and drinking normally. Patient mentions that she has not completed CT that was ordered at last OV. R: Advised patient to go to ED now for further evaluation of symptoms, she verbalized understanding and states her will drive her to [place] ED. No further needs at this time. Patient instructed to call back with new or worsening symptoms. Reason for Disposition [1] SEVERE pain AND [2] age > 60 years Protocols used: Abdominal Pain - [id number] Normal [facility] BASIC METABOLIC PANELon 10- Anion gap [Moles/Vol] 9 mmol/L Normal -13 [facility] Comment on above: Performed By: #### L [id number] ####Safety Tech: BROOKLYNN CHAMPAGNE ([id number])[facility] ([facility])[address] [place] [address] [place] Calcium [Mass/Vol] 9.9 mg/dL Normal 8.4-10.4 [facility] Comment on above: Performed By: #### L [id number] ####Safety Tech: BROOKLYNN CHAMPAGNE ([id number])[facility] ([facility])[address] [place] [address] [place] Chloride [Moles/Vol] 102 mmol/L Normal 98-107 [facility] Comment on above: Performed By: #### L [id number] ####Safety Tech: BROOKLYNN CHAMPAGNE ([id number])[facility] ([facility])[address] [place] [address] [place] CO2 [Moles/Vol] 24 mmol/L Normal 22-30 [facility] Comment on above: Performed By: #### L [id number] ####Safety Tech: BROOKLYNN CHAMPAGNE ([id number])[facility] ([facility])[address] [place] [address] [place] Creatinine [Mass/Vol] 0.95 mg/dL Normal 0.52-1.04 [facility] Comment on above: Performed By: #### L [id number] ####Safety Tech: BROOKLYNN CHAMPAGNE ([id number])[facility] ([facility])[address] [place] [address] [place] GLOMERULAR FILTRATION RATE ML/MIN/1.73 SQ M.PREDICTED 66.6 mL/min/1.73m*2 Normal >60.0 [facility] Comment on above: Result Comment: Calc ulation based on the Chronic Kidney Disease Epidemiology Collaboration (CKD-EPI) equation refit without adjustment for race Performed By: #### L [id number] ####Safety Tech: BROOKLYNN CHAMPAGNE ([id number])[facility] ([facility])[address] [place] [address] [place] Glucose [Mass/Vol] 116 mg/dL High 70-100 [facility] Comment on above: Performed By: #### L [id number] ####Safety Tech: BROOKLYNN CHAMPAGNE ([id number])[facility] ([facility])[address] [place] [address] [place] Potassium [Moles/Vol] 4.5 mmol/L Normal 3.5-5.1 [facility] Comment on above: Performed By: #### L [id number] ####Safety Tech: BROOKLYNN CHAMPAGNE ([id number])[facility] ([facility])[address] [place] [address] [place] Sodium [Moles/Vol] 135 mmol/L Normal 135-145 [facility] Comment on above: Performed By: #### L [id number] ####Safety Tech: BROOKLYNN CHAMPAGNE ([id number])[facility] ([facility])[address] [place] [address] [place] Urea nitrogen [Mass/Vol] 23 mg/dL High 7-17 [facility] Comment on above: Performed By: #### L [id number] ####Safety Tech: BROOKLYNN CHAMPAGNE ([id number])[facility] ([facility])[address] Basic metabolic 1998 panelon 05-15-2024 Anion gap [Moles/Vol] 9 mmol/L 3 - 13 mmol/L [facility] Calcium [Mass/Vol] 9.9 mg/dL 8.4 - 10. 4 mg/dL [facility] Chloride [Moles/Vol] 102 mmol/L 98 - 107 mmol/L [facility] CO2 [Moles/Vol] 24 mmol/L 22 - 30 mmol/L [facility] Creatinine [Mass/Vol] 0.95 mg/dL 0.52 - 1.04 mg/dL [facility] GFR/1.73 sq M.predicted (S/P/Bld) [Vol rate/Area] 66.6 mL/min - PINF [facility] Comment on above: Calculation based on the Chronic Kidney Disease Epidemiology Collaboration (CKD-EPI) equation refit without adjustment for race Glucose [Mass/Vol] 116 mg/dL High 70 - 100 mg/dL [facility] Interpretation and review of laboratory results Abnormal [facility] Potassium [Moles/Vol] 4.5 mmol/L 3.5 - 5.1 mmol/L [facility] Sodium [Moles/Vol] 135 mmol/L 135 - 145 mmol/L [facility] Urea nitrogen [Mass/Vol] 23 mg/dL High 7 - 17 mg/dL [facility] CBC W Auto Differential pane l (Bld)on 05-15-2024 Basophils (Bld) [#/Vol] 0.0 10*3/uL 0.0 - 0.2 10*3/uL [facility] Basophils/100 WBC (Bld) 0.2 % 0.0 - 2.0 % [facility] Eosinophils (Bld) [#/Vol] 0.1 10*3/uL 0.0 - 0.5 10*3/uL [facility] Eosinophils/100 WBC (Bld) 2.3 % 0.0 - 6.0 % [facility] Erythrocyte distribution width (RBC) [Ratio] 11.8 % 11.5 - 15.0 % [facility] Hematocrit (Bld) [Volume fraction] 44.2 % 35.0 - 47.0 % [facility] Hemoglobin (Bld) [Mass/Vol] 15.3 g/dL 11.7 - 16.0 g/dL [facility] Immature granulocytes (Bld) [#/Vol] 0.0 10*3/uL [facility] - 0.1 10*3/uL [facility] Immature granulocytes/100 WBC (Bld) 0.3 % 0.0 - 2.0 % [facility] Interpretation and review of laboratory results Abnormal [facility] Lymphocytes (Bld) [#/Vol] 0.8 10*3/uL Low 1.0 - 4.3 10*3/uL [facility] Lymphocytes/100 WBC (Bld) 13.2 % Low 15.0 - 45.0 % [facility] MCH (RBC) [Entitic mass] 32.3 pg 26.0 - 34.0 pg [facility] MCHC (RBC) [Mass/Vol] 34.6 % 30.5 - 36.0 % [facility] MCV (RBC) [Entitic vol] 93.4 fL 77.0 - 99.0 fL [facility] Monocytes (Bld) [#/Vol] 0.7 10*3/uL 0.0 - 0.9 10*3/uL [facility] Monocytes/100 WBC (Bld) 11.1 % 5.0 - 13.0 % [facility] Neutrophils (Bld) [#/Vol] 4.5 10*3/uL 1.8 - 7.5 10*3/uL [facility] Neutrophils/100 WBC (Bld) 72.9 % 38.0 - 82.0 % [facility] Nucleated RBC/100 WBC (Bld) [Ratio] 0.0 % [facility] Platelet mean volume (Bld) [Entitic vol] 10.1 fL 9.0 - 12.7 fL [facility] Comment on above: MPV is a calculated measurement using platelet volume ratio Platelets (Bld) [#/Vol] 175 10*3/uL 140 - 440 10*3/uL [facility] RBC (Bld) [#/Vol] 4.73 10*6/uL 3.80 - 5.2 0 10*6/uL [facility] WBC (Bld) [#/Vol] 6.1 10*3/uL 3.6 - 10.7 10*3/uL [facility] CBC WITH AUTO DIFFERENTIALon 05-15-2024 Basophils (Bld) [#/Vol] 0.0 10*3/uL Normal 0.0-0.2 [facility] Comment on above: Performed By: #### L [id number] ####Safety Tech: BROOKLYNN CHAMPAGNE ([id number])[facility] ([facility]RL[facility])[address] [place] [address] [place] Basophils/100 WBC (Bld) 0.2 % Normal 0.0-2.0 [facility] Comment on above: Performed By: #### L [id number] ####Safety Tech: BROOKLYNN CHAMPAGNE ([id number])[facility] (SWRL[facility])[address] [place] [address] Eosinophils (Bld) [#/Vol] 0.1 10*3/uL Normal 0.0-0.5 [facility] Comment on above: Performed By: #### L [id number] ####Safety Tech: BROOKLYNN CHAMPAGNE ([id number])[facility] ([facility])[address] [place] [address] [place] Eosinophils/100 WBC (Bld) 2.3 % Normal 0.0-6.0 [facility] Comment on above: Performed By: #### L [id number] ####Safety Tech: BROOKLYNN CHAMPAGNE ([id number])[facility] ([facility])[address] [place] [address] Erythrocyte distribution width (RBC) [Ratio] 11.8 % Normal 11.5-15.0 [facility] Comment on above: Performed By: #### L [id number] ####Safety Tech: BROOKLYNN CHAMPAGNE ([id number])[facility] ([facility])[address] [place] [address] Hematocrit (Bld) [Volume fraction] 44.2 % Normal 35.0-47.0 [facility] Comment on above: Performed By: #### L [id number] ####Safety Tech: BROOKLYNN CHAMPAGNE ([id number])[facility] ([facility])[address] [place] [address] Hemoglobin (Bld) [Mass/Vol] 15.3 g/dL Normal 11.7-16.0 [facility] Comment on above: Performed By: #### L [id number] ####Safety Tech: BROOKLYNN CHAMPAGNE ([id number])[facility] ([facility])[address] [place] [address] IMMATURE GRANS % 0.3 % Normal 0.0-2.0 [facility] Comment on above: Performed By: #### L [id number] ####Safety Tech: BROOKLYNN CHAMPAGNE ([id number])[facility] ([facility])[address] [place] [address] IMMATURE GRANS ABSOLUTE 0.0 10*3/uL Normal <0.1 [facility] Comment on above: Performed By: #### L [id number] ####Safety Tech: BROOKLYNN CHAMPAGNE ([id number])[facility] ([facility])[address] [place] [address] Lymphocytes (Bld) [#/Vol] 0.8 10*3/uL Low 1.0-4.3 [facility] Comment on above: Performed By: #### L [id number] ####Safety Tech: BROOKLYNN CHAMPAGNE ([id number])[facility] ([facility])[address] [place] [address] Lymphocytes/100 WBC (Bld) 13.2 % Low 15.0-45.0 [facility] Comment on above: Performed By: #### L [id number] ####Safety Tech: BROOKLYNN CHAMPAGNE ([id number])[facility] ([facility])[address] [place] [address] MCH (RBC) [Entitic mass] 32.3 pg Normal 26.0-34.0 [facility] Comment on above: Performed By: #### L [id number] ####Safety Tech: BROOKLYNN CHAMPAGNE ([id number])[facility] ([facility])[address] [place] [address] MCHC 34.6 % Normal 30.5-36.0 [facility] Comment on above: Performed By: #### L [id number] ####Safety Tech: BROOKLYNN CHAMPAGNE ([id number])[facility] ([facility]RL[facility])[address] [place] [address] MCV (RBC) [Entitic vol] 93.4 fL Normal 77.0-99.0 [facility] Comment on above: Performed By: #### L [id number] ####Safety Tech: BROOKLYNN CHAMPAGNE ([id number])[facility] ([facility])[address] [place] [address] Monocytes (Bld) [#/Vol] 0.7 10*3/uL Normal 0.0-0.9 [facility] Comment on above: Performed By: #### L [id number] ####Safety Tech: BROOKLYNN CHAMPAGNE ([id number])[facility] ([facility]RL[facility])[address] [place] [address] [place] Monocytes/100 WBC (Bld) 11.1 % Normal 5.0-13.0 [facility] Comment on above: Performed By: #### L [id number] ####Safety Tech: BROOKLYNN CHAMPAGNE ([id number])[facility] ([facility])[address] [place] [address] [place] NEUTROPHILS ABSOLUTE 4.5 10*3/uL Normal 1.8-7.5 [facility] Comment on above: Performed By: #### L [id number] ####Safety Tech: BROOKLYNN CHAMPAGNE ([id number])[facility] [place] [facility] (SWRLAB)[address] [place] [address] [place] Neutrophils/100 WBC (Bld) 72.9 % Normal 38.0-82.0 [facility] Comment on above: Performed By: #### L [id number] ####Safety Tech: BROOKLYNN CHAMPAGNE ([id number])[facility] [place] (SWRLAB)[address] NRBC 0.0 /100 WBCs Normal 0.0-2.0 [facility] Comment on above: Performed By: #### L [id number] ####Safety Tech: BROOKLYNN CHAMPAGNE ([id number])[facility] [place] (SWRLAB)[address] [place] [address] Platelet mean volume (Bld) [Entitic vol] 10.1 fL Normal 9.0-12.7 [facility] Comment on above: Result Comment: MPV is a calculated measurement using platelet volume ratio Performed By: #### L [id number] ####Safety Tech: BROOKLYNN CHAMPAGNE ([id number])[facility] [place] (SWRLAB)[address] [place] [address] [place] Platelets (Bld) [#/Vol] 175 10*3/uL Normal 140-440 [facility] Comment on above: Performed By: #### L [id number] ####Safety Tech: BROOKLYNN CHAMPAGNE ([id number])[facility] [place] (SWRLAB)[address] [place] [address] [place] RBC (Bld) [#/Vol] 4.73 10*6/uL Normal 3.80-5.20 [facility] Comment on above: Performed By: #### L [id number] ####Safety Tech: BROOKLYNN CHAMPAGNE ([id number])[facility] [place] (SWRLAB)[address] [place] [address] [place] WBC (Bld) [#/Vol] 6.1 10*3/uL Normal 3.6-10.7 [facility] Comment on above: Performed By: #### L [id number] ####Safety Tech: BROOKLYNN CHAMPAGNE ([id number])[facility] [place] (SWRLAB)[address] [place] [address] COMPLETE URINALYSISon 2023 BACTERIA (#/HPF) IN URINE Loaded Abnormal Negative [facility] Comment on above: Performed By: #### L [id number] ####Safety Tech: BROOKLYNN CHAMPAGNE ([id number])[facility] [place] [facility] (SWRLAB)[address] [place] [address] BILIRUBIN, TOTAL PRESENCE IN URINE 0.5 mg/dL Abnormal Negative [facility] Comment on above: Performed By: #### L [id number] ####Safety Tech: BROOKLYNN CHAMPAGNE ([id number])[facility] [place] (SWRLAB)[address] Clarity (U) Clear Normal Clear [facility] Comment on above: Performed By: #### L [id number] ####Safety Tech: BROOKLYNN CHAMPAGNE ([id number])[facility] [place] [facility] (SWRL[place])[address] [place] [address] Color (U) Dark Yellow Abnormal Lt. Yellow [facility] Comment on above: Performed By: #### L [id number] ####Safety Tech: BROOKLYNN CHAMPAGNE ([id number])[facility] [place] [facility] (SWRLAB)[address] [place] [address] [place] GLUCOSE (MG/DL) IN URINE Normal Normal Normal (<70) [facility] Comment on above: Performed By: #### L [id number] ####Safety Tech: BROOKLYNN CHAMPAGNE ([id number])[facility] [place] (SW[place])[address] HEMOGLOBIN PRESENCE IN URINE Negative Normal Negative [facility] Comment on above: Performed By: #### L [id number] ####Safety Tech: BROOKLYNN CHAMPAGNE ([id number])[facility] [place] [facility] (SWRL[place])[address] [place] [address] Ketones Ql (U) Negative Normal Negative [facility] Comment on above: Performed By: #### L [id number] ####Safety Tech: BROOKLYNN CHAMPAGNE ([id number])[facility] [place] (SWRLAB)[address] [place] [address] [place] LEUKOCYTE ESTERASE PRESENCE IN URINE BY TEST STRIP Negative Normal Negative [facility] Comment on above: Performed By: #### L [id number] ####Safety Tech: BROOKLYNN CHAMPAGNE ([id number])[facility] [place] (SWRLAB)[address] [place] [address] NITRITE PRESENCE IN URINE Positive Abnormal Negative [facility] Comment on above: Performed By: #### L [id number] ####Safety Tech: BROOKLYNN CHAMPAGNE ([id number])[facility] [place] (SWRLAB)[address] [place] [address] pH (U) 5.5 [pH] Normal 5.0-8.0 [facility] Comment on above: Performed By: #### L [id number] ####Safety Tech: BROOKLYNN CHAMPAGNE ([id number])[facility] [place] (SWRLAB)[address] [place] [address] Protein (U) [Mass/Vol] 20 mg/dL Abnormal Negative [facility] Comment on above: Performed By: #### L [id number] ####Safety Tech: BROOKLYNN CHAMPAGNE ([id number])[facility] [place] (SWRLAB)[address] [place] [address] [place] RBC (#/HPF) IN URINE SEDIMENT Negative Normal 0-2 [facility] Comment on above: Performed By: #### L [id number] ####Safety Tech: BROOKLYNN CHAMPAGNE ([id number])[facility] [place] (SWRLAB)[address] [place] [address] Specific gravity (U) [Rel density] 1.024 Normal 1.005-1.030 [facility] Comment on above: Performed By: #### L [id number] ####Safety Tech: BROOKLYNN CHAMPAGNE ([id number])[facility] [place] (SWRLAB)[address] [place] [address] [place] SQUAMOUS EPITHELIAL CELLS (#/HPF) IN URINE SEDIMENT 0-2 Normal 3-5 [facility] Comment on above: Performed By: #### L [id number] ####Safety Tech: BROOKLYNN CHAMPAGNE ([id number])[facility] [place] [facility] ([facility]RL[place])[address] [place] [address] UROBILINOGEN (MG/DL) IN URINE 2 mg/dL Abnormal Normal (0-1) [facility] Comment on above: Performed By: #### L [id number] ####Safety Tech: BROOKLYNN CHAMPAGNE ([id number])[facility] [place] [facility] (SWRL[facility])[address] [place] [address] VOLUME OF URINE QNS for accurate quantitation. Normal [facility] Comment on above: Performed By: #### L [id number] ####Safety Tech: BROOKLYNN CHAMPAGNE ([id number])[facility] [place] [facility] (SWRL[place])[address] [place] [address] WBC (LEUKOCYTE) (#/HPF) IN URINE SEDIMENT 0-2 Normal 0-5 [facility] Comment on above: Performed By: #### L [id number] ####Safety Tech: BROOKLYNN CHAMPAGNE ([id number])[facility] [place] (SWRLAB)[address] [place] [address] CT ABDOMEN PELVIS W CONTRAST on 05-15-2024 CT ABDOMEN PELVIS W CONTRAST Patient Name: JOSÉ JIMÉNEZ : 1960 [facility]#: [id number] Exam Date/Time: 05/15/2024 08:19 Procedure: CT ABDOMEN PELVIS W CONTRAST Ordering Provider: GONZALEZ JOSHUA Reason For Exam: LLQ abdominal pain CT ABDOMEN AND PELVIS WITH CONTRAST CLINICAL INDICATION: Abdominal pain. TECHNIQUE: Multi-axial 3mm sections through the abdomen and pelvis following 75 mL of Isoview contrast media. No oral contrast was administered. Coronal and sagittal reconstructions were reviewed. Dose reduction was employed with automated exposure control. COMPARISON: None. FINDINGS: Lower thorax: Normal. Stomach: Unremarkable. Liver: Normal size and contours. Normal hepatic parenchyma. No focal lesion. Biliary tree: Unremarkable gallbladder by CT. No biliary dilatation. Spleen: Normal. Adrenals: Normal. Pancreas: Normal. Kidneys: Symmetric contrast enhancement without evidence of hydronephrosis. No focal renal lesion is identified. Free air or fluid: None. Mesenteric/retroperiton eal: No adenopathy or inflammation. Aorta: Normal caliber of aorta and bilateral common iliac arteries. Bowel: Normal appendix without inflammatory change in the right lower quadrant. No inflammatory change or bowel dilatation is noted. Urinary bladder: Unremarkable. Abdominal wall/soft tissues: No ventral hernia is evident. Pelvic organs/viscera: The uterus is present. Inguinal: No lymphadenopathy. Osseous structures: L4-5 facet arthropathy. Otherwise unremarkable osseous structures. IMPRESSION: No evidence of acute infectious or inflammatory process in the abdomen or pelvis. Report Dictated on Electronically Signed By: José Luis Rosen MD Electronically Signed Date/Time: 05/15/2024 8:40 AM EDT c/o lower left quad abdominal pain for 2 weeks. Patient reports diarrhea and nausea. Normal [facility] CT Abdomen and Pelvis W cont rast Jean Carlos 05-15-2024 No evidence of acute infectious or inflammatory process in the abdomen or pelvis. Report Dictated on Electronically Signed By: José Luis Rosen MD Electronically Signed Date/Time: 05/15/2024 8:40 AM [facility] RADIOLOGY SYSTEM Patient Name: JOSÉ SPRAGUE : 1960 Exam Date/Time: 05/15/2024 08:19 Procedure: CT ABDOMEN PELVIS W CONTRAST Ordering Provider: GONZALEZ JOSHUA Reason For Exam: LLQ abdominal pain CT ABDOMEN AND PELVIS WITH CONTRAST CLINICAL INDICATION: Abdominal pain. TECHNIQUE: Multi-axial 3mm sections through the abdomen and pelvis following 75 mL of Isoview contrast media. No oral contrast was administered. Coronal and sagittal reconstructions were reviewed. Dose reduction was employed with automated exposure control. COMPARISON: None. FINDINGS: Lower thorax: Normal. Stomach: Unremarkable. Liver: Normal size and contours. Normal hepatic parenchyma. No focal lesion. Biliary tree: Unremarkable gallbladder by CT. No biliary dilatation. Spleen: Normal. Adrenals: Normal. Pancreas: Normal. Kidneys: Symmetric contrast enhancement without evidence of hydronephrosis. No focal renal lesion is identified. Free air or fluid: None. Mesenteric/retroperiton eal: No adenopathy or inflammation. Aorta: Normal caliber of aorta and bilateral common iliac arteries. Bowel: Normal appendix without inflammatory change in the right lower quadrant. No inflammatory change or bowel dilatation is noted. Urinary bladder: Unremarkable. Abdominal wall/soft tissues: No ventral hernia is evident. Pelvic organs/viscera: The uterus is present. Inguinal: No lymphadenopathy. Osseous structures: L4-5 facet arthropathy. Otherwise unremarkable osseous structures. [facility] RADIOLOG[facility] José Luis Rosen MD - 05/15/2024 Patient Name: JOSÉ JIMÉNEZ : 1960 Exam Date/Time: 05/15/2024 08:19 Procedure: CT ABDOMEN PELVIS W CONTRAST Ordering Provider: GONZALEZ JOSHUA Reason For Exam: LLQ abdominal pain CT ABDOMEN AND PELVIS WITH CONTRAST CLINICAL INDICATION: Abdominal pain. TECHNIQUE: Multi-axial 3mm sections through the abdomen and pelvis following 75 mL of Isoview contrast media. No oral contrast was administered. Coronal and sagittal reconstructions were reviewed. Dose reduction was employed with automated exposure control. COMPARISON: None. FINDINGS: Lower thorax: Normal. Stomach: Unremarkable. Liver: Normal size and contours. Normal hepatic parenchyma. No focal lesion. Biliary tree: Unremarkable gallbladder by CT. No biliary dilatation. Spleen: Normal. Adrenals: Normal. Pancreas: Normal. Kidneys: Symmetric contrast enhancement without evidence of hydronephrosis. No focal renal lesion is identified. Free air or fluid: None. Mesenteric/retroperiton eal: No adenopathy or inflammation. Aorta: Normal caliber of aorta and bilateral common iliac arteries. Bowel: Normal appendix without inflammatory change in the right lower quadrant. No inflammatory change or bowel dilatation is noted. Urinary bladder: Unremarkable. Abdominal wall/soft tissues: No ventral hernia is evident. Pelvic organs/viscera: The uterus is present. Inguinal: No lymphadenopathy. Osseous structures: L4-5 facet arthropathy. Otherwise unremarkable osseous structures. IMPRESSION: No evidence of acute infectious or inflammatory process in the abdomen or pelvis. Report Dictated on Electronically Signed By: José Luis Rosen MD Electronically Signed Date/Time: 05/15/2024 8:40 AM EDT [facility] Radiology Study observation (narrative) [employer] CT Abdomen and Pelvis W cont rast IVOrdered By: José Luis Rosen on 05-15-2024 [employer] Work Phone: ECG 12-LEADon 05-15-2024 ECG 12-LEAD IMPRESSION: Sinus rhythm Borderline repolarization abnormality Electronically Signed On 05-15-2024 20:17:32 EDT by Tarvis Lombardo Normal [facility] ED Nursing Noteon 05-15-2024 ED Nursing Note Patient to room 4 wi th c/o lower left quad abdominal pain for 2 weeks. Patient reports diarrhea and nausea. V/S obtained, call light within reach. Normal [facility] ED Provider Noteon ED Provider Note EMERGENCY DEPARTMENT ENCOUNTER Pt Name: José Jiménez Birthdate 1960 Date of evaluation: 05/15/2024 ED Provider: Ed Goznalez MD CHIEF COMPLAINT Chief Complaint Patient presents with Abdominal Pain HISTORY OF PRESENT ILLNESS (Location/Symptom, Timing/Onset, Context/Setting, Quality, Duration, Modifying Factors, Severity) Note limiting factors. I wore appropriate PPE for the entirety of this encounter. HPI José Jiménez is a 63 y.o. who presents to the emergency department with chief complaint of left lower quadrant abdominal pain with nausea that has been present over approximately the last 2 weeks. Patient has been to urgent care and has seen her primary care regarding this. A KUB was obtained and showed some right renal stones but no evidence of other acute or abnormal findings. At urgent care she had a urinalysis which had some blood and leukocytes and they initiated treatment with Bactrim and Pyridium for possible UTI. Urine cultures did not show evidence of UTI though patient did report some improvement with Pyridium in regards to some dysuria she has been experiencing. Continues to have worsening pain. Primary care has ordered a CT scan of the abdomen pelvis however preauthorization has not been approved yet. Pain was worse this morningso they decided to come to the emergency department for evaluation. Patient denies any bloody stools. No other complaints. Nursing Notes were reviewed. Limitations to history: None Outside historians: Significant other REVIEW OF SYSTEMS Review of Systems All other systems reviewed and are negative. Pertinent positives and negatives as per HPI. PAST MEDICAL HISTORY Past Medical History: Diagnosis Date Breast cancer screening 03/2024 Cerebral palsy, hemiplegic (CMS/HCC) (HCC) Colon cancer screening 05/2022 neg Cologuard- due 2024 Essential hypertension 2016 Family history of Alzheimer's disease Family history of breast cancer pat Gm Hypercholesterolemia 2020 Hypothyroidism 2023 Menopause 2010 SURGICAL HISTORY Past Surgical History: Procedure Laterality Date BREAST BIOPSY Right 2008 CATARACT EXTRACTION W/ INTRAOCULAR LENS IMPLANT, BILATERAL 12/2022 Dr. Ledesma, [place] TENDON RELEASE Left CURRENT MEDICATIONS Previous Medications ASPIRIN 81 MG EC TABLET Take 1 tablet by mouth daily. ATORVASTATIN (LIPITOR) 10 MG TABLET TAKE 1 TABLET DAILY IN THE EVENING AFTER SUPPER CHOLECALCIFEROL (VITAMIN D-3) 25 MCG (1000 UT) TABLET Take 1 tablet by mouth daily. FLUTICASONE (FLONASE) 50 MCG/ACT NASAL SPRAY Administer 2 sprays into each nostril daily. Shake gently. Before first use, prime pump. After use, clean tip and replace cap. LEVOTHYROXINE (SYNTHROID, LEVOXYL) 25 MCG TABLET Take 1 tablet (25 mcg) by mouth daily. METOPROLOL SUCCINATE XL (TOPROL-XL) 200 MG 24 HR TABLET Take 1 tablet (200 mg) by mouth daily. Do not crush or chew. MULTIPLE VITAMIN (MULTI-VITAMIN) TABLET Take 1 tablet by mouth in the morning. PHENAZOPYRIDINE (PYRIDIUM) 200 MG TABLET Take 1 tablet (200 mg) by mouth 3 times daily as needed for bladder spasms. SPIRONOLACTONE (ALDACTONE) 50 MG TABLET TAKE 1 TABLET DAILY ALLERGIES Patient has no known allergies. FAMILY HISTORY Family History Problem Relation Name Age of Onset Hypertension Mother advanced dementia 85 in 01/19 Dementia Mother 78 Hypertension Father CRF Coronary artery disease Father smoker Prostate cancer Father at age 81, in 2013 Other ([id number]) Sister Ama Hernandez divert ds, [place] Stroke Maternal Grandmother in 60s Coronary artery disease Maternal Grandfather in 60s Breast cancer Paternal Grandmother Joi age 89 old age Coronary artery disease Paternal Grandfather in 70 SOCIAL HISTORY Social History Socioeconomic History Marital status: Tobacco Use Smoking status: Never Smokeless tobacco: Never Substance and Sexual Activity Alcohol use: No Alcohol/week: 0.0 standard drinks of alcohol Drug use: Never Social History Narrative to Edgar in 1990, no children, NS or ETOH. [facility] [place] [place] since 1980- retired in 12/2022. Social Determinants of Health Financial Resource Strain: Low Risk (02/06/2021) Received from [facility] Overall Financial Resource Strain (CARDIA) Difficulty of Paying Living Expenses: Not hard at all Food Insecurity: No Food Insecurity (02/06/2021) Received from [email or web address] Hunger Vital Sign Worried About Running Out of Food in the Last Year: Never true Ran Out of Food in the Last Year: Never true Transportation Needs: No Transportation Needs (08/08/2019) Received from [facility] PRAPARE - Transportation Lack of Transportation (Me (more content not included)... Normal [facility] LACTIC ACID WITH REFLEXon Lactate [Moles/Vol] 0.9 mmol/L Normal 0.7-2.0 [facility] Comment on above: Performed By: #### L [id number] ####Safety Tech: BROOKLYNN CHAMPAGNE ([id number])[facility])[address] [place] [address] Laboratory - Chemistry and C hemistry - challengeon 05-15-2024 Lactate [Moles/Vol] 0.9 mmol/L 0.7 - 2. 0 mmol/L [facility] No Panel Informationon 05-15 Interpretation and review of laboratory results Normal [facility] Urinalysis complete panel (U )Ordered By: Ned Dallas on 05-15-2024 Bacteria LM.HPF (Urine sed) [#/Area] Loaded Abnormal Negative /HPF [facility] Bilirubin Ql (U) 0.5 mg/dL Abnormal Negative [facility] Clarity (U) Clear Clear [facility] Color (U) Dark Yellow Abnormal Lt. Yellow [facility] Epithelial cells.squamous LM.HPF (Urine sed) [#/Area] 0-2 [facility] Glucose Ql (U) Normal Normal (<70) mg/dL [facility] Hemoglobin Ql (U) Negative Negative mg/dL [facility] Interpretation and review of laboratory results Abnormal [facility] Ketones (U) [Mass/Vol] Negative Negative mg/dL [facility] Leukocyte esterase Test strip Ql (U) Negative Negative Hieu/uL [facility] Nitrite Ql (U) Positive Abnormal Negative [facility] th pH (U) 5.5 [pH] 5.0 - 8.0 pH [facility] Protein (U) [Mass/Vol] 20 mg/dL Abnormal Negative [facility] RBC LM.HPF (Urine sed) [#/Area] Negative [facility] Specific gravity (U) [Rel density] 1.024 1.005 - 1.030 [facility] Urobilinogen (U) [Mass/Vol] 2 mg/dL Abnormal Normal (0-1) [facility] Volume, Urine QNS for accurate quantitation. [facility] WBC LM.HPF (Urine sed) [#/Area] 0-2 [facility] 36on 05-12-2024 36 Jenise, can you pleas e call this patient to update her on the status of her CT. She will be at a tomorrow and requested a voicemail on the status. Thank you in advance [place] [id number] Name of caller: Joe garcia Contact phone number: [phone] Relationship to Patient: patient Provider: Dr Estes Practice: [facility] Chief Complaint/Reason for Call: pt calling to see if ct was approved, cs states looks approved but no authorization number, please assist Best time of day caller can be reached: any Patient advised that office/PCP has 24-48 business hours to return their call: No Normal [facility] 36on 05-04-2024 36 ordered [facility] 36 ----- Message from Shy Yvette sent at 05/04/2024 2:19 PM EDT ----- SW patient. She has left side pain. Discussed results. She is in agreement for a CT and realizes she will need a prior auth . Normal [facility] 36 LVM for patient med sent Normal [facility] 36 Flonase sent Normal [place] [address] Name of caller: Joe garcia Contact phone number: [phone] Relationship to Patient: patient Provider: DO Duane Practice: [facility] Chief Complaint/Reason for Call: Pt states she was in office yesterday and provider was going to call her in Flonase along with the other script and it has not been sent. Pt is requesting a call back to verify if it will be sent to her [facility] pharmacy. Pt states she would like provider to know that she is feeling much better since starting the Pyridium. Please advise Best time of day caller can be reached: Any Patient advised that office/PCP has 24-48 business hours to return their call: Yes Normal [facility] AMB POC URINALYSIS DIP STICK AUTO W/O MICROon 05-03-2024 Bilirubin, UA Negative [facility] Blood, UA Negative [facility] Glucose, UA Negative [facility] Interpretation and review of laboratory results Abnormal [facility] Ketones, UA (mg/dL) Negative Negative mg/dL [facility] Leukocytes, UA Trace [facility] Nitrite, UA Negative [facility] pH, UA 6.0 [facility] Protein, UA Negative [facility] Spec Grav, UA 1.015 [facility] Urobilinogen, UA 0.2 [facility] Office Visiton 05-03-2024 Follow-up visit [id number] José Jiménez 1960 F Date Provider Department Center 05/03/2024 [id number] [facility] Family History Problem Relation Age of Onset Hypertension Mother Comments: advanced dementia 85 in 01/19 Dementia Mother 78 Hypertension Father Comments: CRF Coronary artery disease Father Comments: smoker Prostate cancer Father Comments: at age 81, in 2013 Other Sister Comments: divert ds, [place] Stroke Maternal Grandmother Comments: in 60s Coronary artery disease Maternal Grandfather Comments: in 60s Breast cancer Paternal Grandmother Comments: age 89 old age Coronary artery disease Paternal Grandfather Comments: in 70 Family Status - Relation Status Age at Mother Father Sister Alive Maternal Grandmother Maternal Grandfather Paternal Grandmother Paternal Grandfather Level of Service:52784 [place] OFFICE/OUTPATIENT ESTABLISHED MOD MDM 30 MIN Reason for Visit and Comments: UTI [[id number]] - Patient was seen seen at [facility] urgent care Thursday morning she is still taking the macrobid. They told her she does not have a UTI she is still having symptoms Flu Vaccine [189] - Patient has declined to receive influenza vaccine in the office. Normal [facility] Progress Noteon 05-03-2024 Progress Note [facility] [place] [address] [facility] [id number] Visit type: Established Patient Reason for Visit: UTI (Patient was seen seen at [facility] urgent care Thursday morning she is still taking the macrobid. They told her she does not have a UTI she is still having symptoms ) and Flu Vaccine (Patient has declined to receive influenza vaccine in the office. ) Assessment and Plan Diagnoses and all orders for this visit: Dysuria - AMB POC URINALYSIS DIP STICK AUTO W/O MICRO Flank pain - XR abdomen 1 view; Future - Basic metabolic panel; Future - CBC; Future Atypical nevus - Ambulatory referral to Dermatology; Future Other orders - phenazopyridine (Pyridium) 200 MG tablet; Take 1 tablet (200 mg) by mouth 3 times daily as needed for bladder spasms. Unclear etiology of her urinary symptoms. Will check an x-ray. Might need to consider a CAT scan. Check labs. Reviewed labs done by the urgent care. The urine culture grew less than 10,000 CFU's of a vaginal erasto. Urinalysis did have some trace red blood cells. I would like her to discontinue the Macrobid. We will give her Pyridium to help with the pain. Check lab work and x-ray. No follow-ups on file. Subjective HPI Patient is a 63-year-old white female with a past medical history of hypertension and cerebral palsy who presents for UTI symptoms. She states that on Thursday she woke up with frequency and discomfort. She went to an urgent care and was diagnosed with a UTI. She was treated with 2 days of Macrobid. The nurse called her yesterday and said that the urine culture was normal and she should discontinue the antibiotics. She is having left flank/abdominal pain. She denies any diarrhea or constipation. No nausea. She does have a lot of urinary frequency. She does not have a history of kidney stones. She denies any hematuria. Review of Systems Constitutional: Negative for appetite change, chills, fatigue and fever. Respiratory: Negative for cough, shortness of breath and wheezing. Cardiovascular: Negative for chest pain, palpitations and leg swelling. Gastrointestinal: Positive for abdominal pain. Genitourinary: Positive for flank pain, frequency and urgency. Negative for vaginal pain. No Known Allergies Outpatient Medications Prior to Visit Medication Sig Dispense Refill aspirin 81 MG EC tablet Take 1 tablet by mouth daily. atorvastatin (Lipitor) 10 MG tablet TAKE 1 TABLET DAILY IN THE EVENING AFTER SUPPER 90 tablet 3 cholecalciferol (Vitamin D-3) 25 MCG (1000 UT) tablet Take 1 tablet by mouth daily. levothyroxine (Synthroid, Levoxyl) 25 MCG tablet Take 1 tablet (25 mcg) by mouth daily. 30 tablet 11 metoprolol succinate XL (Toprol-XL) 200 MG 24 hr tablet Take 1 tablet (200 mg) by mouth daily. Do not crush or chew. 90 tablet 1 Multiple Vitamin (Multi-Vitamin) tablet Take 1 tablet by mouth in the morning. nitrofurantoin, macrocrystal-monohydrat e, (Macrobid) 100 MG capsule Take 100 mg by mouth in the morning and 100 mg in the evening. spironolactone (Aldactone) 50 MG tablet TAKE 1 TABLET DAILY 90 tablet 3 No facility-administered medications prior to visit. Past Medical History: Diagnosis Date Breast cancer screening 03/2024 Cerebral palsy, hemiplegic (CMS/HCC) (HCC) Colon cancer screening 05/2022 neg Cologuard- due 2024 Essential hypertension 2017 Family history of Alzheimer's disease Family history of breast cancer pat Gm Hypercholesterolemia 2020 Hypothyroidism 2023 Menopause 2010 Social History Socioeconomic History Marital status: Tobacco Use Smoking status: Never Smokeless tobacco: Never Substance and Sexual Activity Alcohol use: No Alcohol/week: 0.0 standard drinks of alcohol Drug use: Never Social History Narrative to Edgar in 1990, no children, NS or ETOH. [facility] [place] [place] since 1980- retired in 12/2022. Social Determinants of Health Financial Resource Strain: Low Risk (02/06/2021) Received from [facility] Overall Financial Resource Strain (CARDIA) Difficulty of Paying Living Expenses: Not hard at all Food Insecurity: No Food Insecurity (02/06/2021) Received from [facility] Hunger Vital Sign Worried About Running Out of Food in the Last Year: Never true Ran Out of Food in the Last Year: Never true Transportation Needs: No Transportation Needs (08/08/2019) Received from [facility] PRAPARE - Transportation Lack of Transportation (Medical): No Lack of Transportation (Non-Medical): No Physical Activity: Sufficiently Active (08/08/2019) Received from [facility] Exercise Vital Sign Days of Exercise per Week: 5 days Minutes of Exe (more content not included)... Normal [facility] 36on 05-02-2024 36 Noted [facility] 36 S: Patient spoke wit [facility] nurse regarding urinary symptoms B: Onset of symptoms/concern yesterday A: Patient states she woke up yesterday with UTI symptoms. Went to stat care and prescribed antibiotic. Patient states her symptoms are improving after starting antibiotics. She states she was just called by the lab and told her culture didn't grow any bacteria and to stop the antibiotic and to call her PCP for an appointment TYLER. R: Same day office visit scheduled on 05/03 at 2:20p with Dr Zepeda. Patient understands home care advice. No further needs at this time. Patient instructed to call back with new or worsening symptoms. Reason for Disposition Bad or foul-smelling urine Protocols used: Urinary [id number] Normal [facility] 36 Noted [facility] CNPNon 05-02-2024 CNPN Telephone (WALKWA) JOSÉ JIMÉNEZ ([id number]) 1960 F Date Time Provider Department 05/02/24 EDUARDA ISSA During your visit today, we recorded the following information about you: Eduarda Issa APRN.CNP 05/02/2024 3:37 PM Signed Birthday verified with patient over the phone. Aware of the below information with all questions answered. Advised to stop antibiotic and follow up with primary care. Allergies As of Date: 05/02/2024 (No Known Allergies) Date Reviewed: 05/01/2024 Reviewed by: Eduarda Issa APRN.CLAUS - Fully Assessed Reason for Visit: Results [95] Prescriptions as of 05/02/2024 - atorvastatin (LIPITOR) 10 mg tablet TAKE 1 TABLET DAILY IN THE EVENING AFTER SUPPER - levothyroxine (SYNTHROID) 25 mcg tablet Take 25 mcg by mouth. - spironolactone (ALDACTONE) 50 mg tablet Take 1 tablet by mouth once daily. - metoprolol tartrate, short acting, (LOPRESSOR) 25 mg tablet Take 25 mg by mouth two times a day. - nitrofurantoin monohydrate and macrocrystal (MACROBID) 100 mg capsule Take 1 capsule by mouth two times a day for 5 days. - aspirin, enteric coated (ECOTRIN LOW STRENGTH) 81 mg EC tablet Take 81 mg by mouth once daily. - multivitamin tablet Take 1 tablet by mouth once daily. Problem List As Of Date: 05/02/2024 (None) Encounter Status:Closed by EDUARDA ISSA on 05/02/24 [facility] 36on 05-01-2024 36 S: Patient spoke wit h [facility] nurse regarding urinary frequency B: Onset of symptoms/concern today A: Patient endorsed urinating with pain, 6-8 times this morning , odor to urine. Patient states, bladder full, but output was not as much. Denies- Back pain, fever, short of shortness of breath. R: Unable find appointment within 24 hours. Patient advise to go to Urgent care.Homecare advice given for Urination Pain and frequency. Patient verbalize understanding . No further needs at this time. Patient instructed to call back with new or worsening symptoms. Reason for Disposition Age > 50 years Protocols used: Urination Pain [id number] Bacteria Ur Culton 4 Bacteria identified Cx Nom (U) ORGANISM ID: 1 <10,000 CFU/ml Normal urogenital erasto Normal [facility] Comment on above: Performed By: #### 6 30-4 #### [facility] CLIA [id number] [address] [place] [address] [place] [id number] [place] CNOVon 05-01-2024 CNOV Office Visit (WALKWA ) JOSÉ JIMÉNEZ ([id number]) 1960 F Date Time Provider Department 05/01/24 9:05 AM EDUARDA ISSA During your visit today, we recorded the following information about you: Temperature Pulse Weight 97.4 degrees 82/minute 69.6 kg Eduarda Issa APRN.GOVERNMENT SALES MANAGER 05/01/2024 9:57 AM Addendum (R30.0) Dysuria (primary encounter diagnosis) Plan: URINE CULTURE, nitrofurantoin monohydrate and macrocrystal (MACROBID) 100 mg capsule UA is positive for leukocytes and trace blood. Will start macrobid and send culture. -Increase fluids. Focus on clears. -Decrease sugary drink intake. Minimize caffeine. -Wipe front to back. No tight clothing. No bubble baths. -Results will be released to [facility] unless there is a need for a change in medication. -If no improvement in 3-5 days please be re-seen by primary care.. -Be seen immediately or go to the ER with worsening/warning symptoms. Warning symptoms include: chills, severe flank pain, severe abdominal/pelvic pain, fevers 101 or higher, chest pain, and respiratory distress. Certain foods and beverages might irritate your bladder, including: Coffee, tea and carbonated drinks, even without caffeine. Alcohol. Certain acidic fruits -- oranges, grapefruits, sumit and limes -- and fruit juices. Spicy foods. Tomato-based products. Carbonated drinks. Chocolate. Eduarda Issa APRN.CNP 05/01/2024 10:01 AM Signed This note was created using [employer]. Subjective José Jiménez is a 63 year old female. HPI by patient: José Jiménez is a 63 year old presenting to the office with the complaint of uti symptoms. Started at 3 am Associated symptoms include painful urination and frequency. Denies fever, chills, nausea, vomiting, abdominal pain, and back pain. Denies vaginal symptoms. OTC not used. No antibiotic use in the last 60 days. ALLERGIES No Known Allergies No family history on file. Social History Tobacco Use Smoking status: Never Smokeless tobacco: Never Active Ambulatory Problems No Active Ambulatory Problems Resolved Ambulatory Problems No Resolved Ambulatory Problems No Additional Past Medical History Review of Systems Constitutional: Negative. HENT: Negative. Eyes: Negative. Respiratory: Negative. Cardiovascular: Negative. Gastrointestinal: Negative. Endocrine: Negative. Genitourinary: Positive for dysuria and frequency. Musculoskeletal: Negative. Skin: Negative. Neurological: Negative. Hematological: Negative. Objective Pulse 82 Temp 36.3 ?C (97.4 ?F) Wt 69.6 kg (153 lb 5.3 oz) SpO2 93% Physical Exam Vitals reviewed. Constitutional: General: She is not in acute distress. Appearance: She is not ill-appearing, toxic-appearing or diaphoretic. Cardiovascular: Rate and Rhythm: Normal rate and regular rhythm. Pulmonary: Effort: Pulmonary effort is normal. Abdominal: General: Bowel sounds are normal. Palpations: Abdomen is soft. Tenderness: There is generalized abdominal tenderness. There is no right CVA tenderness, left CVA tenderness, guarding or rebound. Neurological: Mental Status: She is alert. Assessment and Plan (R30.0) Dysuria (primary encounter diagnosis) Plan: URINE CULTURE, nitrofurantoin monohydrate and macrocrystal (MACROBID) 100 mg capsule UA is positive for leukocytes and trace blood. Will start macrobid and send culture. -Increase fluids. Focus on clears. -Decrease sugary drink intake. Minimize caffeine. -Wipe front to back. No tight clothing. No bubble baths. -Results will be released to [facility] unless there is a need for a change in medication. -If no improvement in 3-5 days please be re-seen by primary care.. -Be seen immediately or go to the ER with worsening/warning symptoms. Warning symptoms include: chills, severe flank pain, severe abdominal/pelvic pain, fevers 101 or higher, chest pain, and respiratory distress. The patient will pursue further outpatient evaluation with the primary care physician or another Urgent Care/Express Care as outlined in the after visit summary. The patient is agreeable to this plan of care and follow-up instructions have been explained in detail. The patient has received these instructions in written format and have expressed an understanding of the after visit summary. Medical Decision Making: Level: 4 - Moderate I spent a total of 20 minutes on the date of the service which included preparing to see the patient, [id number] patient care, completing clinical documentation, obtaining and/or reviewing separately obtained history, performing a medically appropriate examination, counseling and educating the patient/family/caregive r, and ordering medications, tests, or procedures. Referring Provider: SELF [200] Allergies As of Date: 05/01/2024 (No Known Allergies) Date Reviewed: 05/01/2024 Reviewed b (more content not included)... Normal [facility] UA DIP, URINE (POC)on 2023 BILIRUBIN UA (POCT) Negative Negative [facility] CLARITY UA (POCT) Clear [facility] COLOR UA (POCT) Yellow [facility] GLUCOSE UA (POCT) Negative Negative mg/dL [facility] Hemoglobin Ql (U) Trace-intact Abnormal Negative [facility] Interpretation and review of laboratory results Abnormal [facility] KETONE UA (POCT) Negative Negative mg/dL [facility] LEUKOCYTES UA (POCT) Small Abnormal Negative [facility] NITRITE UA (POCT) Negative Negative [facility] PH UA (POCT) 6.5 4.5 - 8.0 [facility] Protein Ql (U) Negative Negative mg/dL [facility] SPECIFIC GRAVITY UA (POCT) 1.015 1.005 - 1.030 [facility] UROBILINOGEN UA (POCT) 0.2 Normal E.U./dL [facility] Location:[facility], [address] [place] [address], [address] [place] [address] POINT OF CARE [facility] Vital Signs Date Time Vital Sign Value Performing Clinician Claude pelaez 08-25-2024 09:13-0500 Diastolic blood pressure 78 mm[Hg] Deion Estes DO Work Phone: [employer] 08-25-2024 09:13-0500 Heart rate 68 /min Deion Estes DO Work Phone: [facility] [employer] 08-25-2024 09:13-0500 Systolic blood pressure 144 mm[Hg] Deion Estes DO Work Phone: [employer] 08-25-2024 08:45-0500 Body height 157.5 cm Deion Estes DO Work Phone: [employer] 08-25-2024 08:45-0500 Body mass index (BMI) [Ratio] 28.46 kg/m2 Deion Estes DO Work Phone: [employer] 08-25-2024 08:45-0500 Body temperature 97.11 [degF] Deion Estes DO Work Phone: [employer] 08-25-2024 08:45-0500 Body weight 70.58 kg Deion Estes DO Work Phone: [employer] 08-25-2024 08:45-0500 SaO2% (BldA) [Mass fraction] 96 % Deion Estes DO Work Phone: [employer] 06-23-2024 14:34-0500 Diastolic blood pressure 78 mm[Hg] Deion Estes DO Work Phone: [employer] 06-23-2024 14:34-0500 Heart rate 68 /min Deion Estes DO Work Phone: [employer] 06-23-2024 14:34-0500 Systolic blood pressure 132 mm[Hg] Deion Estes DO Work Phone: [employer] 06-23-2024 13:54-0500 Body height 157.5 cm Deion Estes DO Work Phone: [employer] 06-23-2024 13:54-0500 Body mass index (BMI) [Ratio] 28.53 kg/m2 Deion Estes DO Work Phone: [facility] [employer] 06-23-2024 13:54-0500 Body temperature 98.6 [degF] Deion Estes DO Work Phone: [facility] [employer] 06-23-2024 13:54-0500 Body weight 70.76 kg Deion Estes DO Work Phone: [facility] [employer] 06-23-2024 13:54-0500 SaO2% (BldA) [Mass fraction] 97 % Deion Estes DO Work Phone: [facility] [employer] 05-18-2024 11:36-0400 Diastolic blood pressure 100 mm[Hg] Fredy Marr PA-C Work Phone: [facility] [employer] 05-18-2024 11:36-0400 Systolic blood pressure 152 mm[Hg] Fredy Marr PA-C Work Phone: [facility] [employer] 05-18-2024 11:02-0400 Body height 157.5 cm Fredy Marr PA-C Work Phone: [facility] [employer] 05-18-2024 11:02-0400 Body mass index (BMI) [Ratio] 28.28 kg/m2 Fredy Marr PA-C Work Phone: [facility] [employer] 05-18-2024 11:02-0400 Body temperature 97.3 [degF] Fredy Marr PA-C Work Phone: [facility] [employer] 05-18-2024 11:02-0400 Body weight 70.13 kg Fredy Marr PA-C Work Phone: [facility] [employer] 05-18-2024 11:02-0400 Heart rate 59 /min Fredy Marr PA-C Work Phone: [facility] [employer] 05-18-2024 11:02-0400 SaO2% (BldA) [Mass fraction] 94 % Fredy Marr PA-C Work Phone: [facility] [employer] 05-15-2024 07:12-0400 Body height 157.5 cm Ed Gonzalez MD Work Phone: [facility] [employer] 05-15-2024 07:12-0400 Body mass index (BMI) [Ratio] 27.62 kg/m2 Ed Gonzalez MD Work Phone: [facility] [employer] 05-15-2024 07:12-0400 Body temperature 97.3 [degF] Ed Gonzalez MD Work Phone: [facility] [employer] 05-15-2024 07:12-0400 Body weight 68.49 kg Ed Gonzalez MD Work Phone: [facility] [employer] 05-15-2024 07:12-0400 Diastolic blood pressure 103 mm[Hg] Ed Gonzalez MD Work Phone: [facility] [employer] 05-15-2024 07:12-0400 Heart rate 80 /min Ed Gonzalez MD Work Phone: [facility] [employer] 05-15-2024 07:12-0400 Respiratory rate 16 /min Ed Gonzalez MD Work Phone: [facility] [employer] 05-15-2024 07:12-0400 SaO2% (BldA) [Mass fraction] 99 % Ed Gonzalez MD Work Phone: [facility] [employer] 05-15-2024 07:12-0400 Systolic blood pressure 136 mm[Hg] Ed Gonzalez MD Work Phone: [facility] [employer] 05-03-2024 14:11-0400 Body height 157.5 cm Mimi Zepeda DO Work Phone: [facility] [employer] 05-03-2024 14:11-0400 Body mass index (BMI) [Ratio] 28.53 kg/m2 Mimi Zepeda DO Work Phone: [facility] [employer] 05-03-2024 14:11-0400 Body weight 70.76 kg Mimi Zepeda DO Work Phone: [facility] [employer] 05-03-2024 14:11-0400 Diastolic blood pressure 78 mm[Hg] Mimi Zepeda DO Work Phone: [facility] [employer] 05-03-2024 14:11-0400 Heart rate 78 /min Mimi Zepeda DO Work Phone: [facility] [employer] 05-03-2024 14:11-0400 SaO2% (BldA) [Mass fraction] 96 % Mimi Zepeda DO Work Phone: [facility] [employer] 05-03-2024 14:11-0400 Systolic blood pressure 128 mm[Hg] Mimi Zepeda DO Work Phone: [facility] 05-01-2024 09:34-0400 Body temperature 97.39 [degF] Eduarda Issa HIGHWAY PAINTER.GOVERNMENT SALES MANAGER Work Phone: [facility] 05-01-2024 09:34-0400 Body weight 69.[address]a [address] PAINTER.GOVERNMENT SALES MANAGER Work Phone: [facility] 05-01-2024 09:34-0400 Heart rate 82 /min Eduarda Issa HIGHWAY PAINTER.GOVERNMENT SALES MANAGER Work Phone: [facility] 05-01-2024 09:34-0400 SaO2% (BldA) [Mass fraction] 93 % Eduarda Issa HIGHWAY PAINTER.GOVERNMENT SALES MANAGER Work Phone: [facility] 03-15-2024 09:03-0400 Diastolic blood pressure 80 mm[Hg] [facility] 03-15-2024 09:03-0400 Systolic blood pressure 132 mm[Hg] [facility] 03-15-2024 08:57-0400 Heart rate 61 /min [facility] 02-23-2024 08:57-0400 Body height 157.5 cm Deion Esets DO Work Phone: [facility] 02-23-2024 08:57-0400 Body mass index (BMI) [Ratio] 27.87 kg/m2 Deion Estes DO Work Phone: [facility] 02-23-2024 08:57-0400 Body temperature 97.2 [degF] Deion Estes DO Work Phone: [facility] 02-23-2024 08:57-0400 Body weight 69.13 kg Deion Estes DO Work Phone: [facility] [employer] 02-23-2024 08:57-0400 Diastolic blood pressure 56 mm[Hg] Deion Estes DO Work Phone: [facility] [employer] 02-23-2024 08:57-0400 Heart rate 74 /min Deion Gandhia DO Work Phone: [facility] [employer] 02-23-2024 08:57-0400 SaO2% (BldA) [Mass fraction] 98 % Deion Gandhia DO Work Phone: [facility] [employer] 02-23-2024 08:57-0400 Systolic blood pressure 156 mm[Hg] Deion Gandhia DO Work Phone: [facility] [employer] 08-20-2023 09:51-0500 Body height 157.5 cm Deion Estes DO Work Phone: [facility] [employer] 08-20-2023 09:51-0500 Body mass index (BMI) [Ratio] 27.62 kg/m2 Deion Gandhia DO Work Phone: [facility] [employer] 08-20-2023 09:51-0500 Body temperature 97.5 [degF] Deion Estes DO Work Phone: [facility] [employer] 08-20-2023 09:51-0500 Body weight 68.49 kg Deion Estes DO Work Phone: [facility] [employer] 08-20-2023 09:51-0500 Diastolic blood pressure 88 mm[Hg] Deion Gandhia DO Work Phone: [facility] [employer] 08-20-2023 09:51-0500 Heart rate 78 /min Deion Gandhia DO Work Phone: [facility] [employer] 08-20-2023 09:51-0500 SaO2% (BldA) [Mass fraction] 96 % Deion Gandhia DO Work Phone: [facility] [employer] 08-20-2023 09:51-0500 Systolic blood pressure 123 mm[Hg] Deion Gandhia DO Work Phone: [facility] [employer] 02-10-2023 07:19-0400 Body height 157.5 cm Deion Gandhia DO Work Phone: [facility] [employer] 02-10-2023 07:19-0400 Body mass index (BMI) [Ratio] 26.34 kg/m2 Deion Estes DO Work Phone: [facility] [employer] 02-10-2023 07:19-0400 Body temperature 97.11 [degF] Deion Estes DO Work Phone: [facility] [employer] 02-10-2023 07:19-0400 Body weight 65.32 kg Deion Estes DO Work Phone: [facility] [employer] 02-10-2023 07:19-0400 Diastolic blood pressure 80 mm[Hg] Deion Estes DO Work Phone: [facility] [employer] 02-10-2023 07:19-0400 Heart rate 78 /min Deion Estes DO Work Phone: [facility] [employer] 02-10-2023 07:19-0400 SaO2% (BldA) [Mass fraction] 98 % Deion Estes DO Work Phone: [facility] [employer] 02-10-2023 07:19-0400 Systolic blood pressure 117 mm[Hg] Deion Estes DO Work Phone: [facility] [employer] 08-11-2022 07:22-0500 Body height 157.5 cm Deion Etses DO Work Phone: [facility] [employer] 08-11-2022 07:22-0500 Body mass index (BMI) [Ratio] 26.7 kg/m2 Deion Estes DO Work Phone: [facility] [employer] 08-11-2022 07:22-0500 Body temperature 98.01 [degF] Deion Estes DO Work Phone: [facility] [employer] 08-11-2022 07:22-0500 Body weight 66.22 kg Deion Estes DO Work Phone: [facility] [employer] 08-11-2022 07:22-0500 Diastolic blood pressure 86 mm[Hg] Deion Estes DO Work Phone: [facility] 08-11-2022 07:22-0500 Heart rate 87 /min Deion Estes DO Work Phone: [facility] 08-11-2022 07:22-0500 SaO2% (BldA) [Mass fraction] 99 % Deion Estes DO Work Phone: [facility] 08-11-2022 07:22-0500 Systolic blood pressure 130 mm[Hg] Deion Estes DO Work Phone: [facility] Encounters Encounter Date Encounter Type Care Provider Facility Start: 04-13-2025 ambulatory Deion Estes Facilit y:[facility] Start: 04-08-2025 End: 04-10-2025 Refill Deion Estes DO Work Phone: [facility] Start: 03-06-2025 End: 03-06-2025 Orders Only Deion Estes DO Work Phone: [facility] Comment on above: Breast cancer screen ing by mammogram (Primary Dx) Start: 02-20-2025 End: 02-20-2025 Refill Deion Estes DO Work Phone: [facility] Start: 01-23-2025 End: 01-23-2025 Refill Deion Estes DO Work Phone: [facility] Start: 10-16-2024 End: 10-17-2024 Refill Deion Estes DO Work Phone: [facility] Start: 08-25-2024 End: 08-25-2024 Office outpatient visit 25 minutes Deion Estes DO Work Phone: [facility] Comment on above: Essential hypertensi on (Primary Dx); Acquired hypothyroidism; Hypercholesterolemia; Cerebral palsy, hemiplegic (CMS/HCC) (HCC) Start: 08-25-2024 End: 08-25-2024 ambulatory DEION ESTES [facility] Start: 08-24-2024 End: 08-24-2024 Refill Deion Estes DO Work Phone: [facility] Start: 07-04-2024 End: 07-25-2024 Telephone encounter Deion Estes DO Work Phone: [facility] Comment on above: Discuss Medications (Pt stated the baclofen is helping slowly ) Start: 06-23-2024 End: 06-23-2024 Assay of hemosiderin, quant Deion Estes DO Work Phone: [facility] [employer] [facility] Start: 06-23-2024 End: 06-23-2024 Patient encounter procedure Deion Estes DO Work Phone: [facility] [place] Comment on above: Encounter for initia l annual wellness visit (AWV) in Medicare patient (Primary Dx); Medicare welcome visit; Essential hypertension; Acquired hypothyroidism; Hypercholesterolemia; Cerebral palsy, hemiplegic (CMS/HCC) (HCC); Cervical paraspinal muscle spasm; Routine general medical examination at health care facility Start: 06-23-2024 End: 06-23-2024 Patient encounter status Deion Estes DO Work Phone: [facility] [employer] Start: 06-23-2024 End: 06-23-2024 ambulatory [facility] Start: 06-23-2024 End: 06-23-2024 Encounter for general adult medical examination without abnormal findings [facility] Start: 05-18-2024 End: 05-18-2024 Office outpatient visit 15 minutes Fredy Marr PA-C Work Phone: [facility] [place] Comment on above: Left lower quadrant abdominal pain (Primary Dx); Elevated blood pressure reading in office with diagnosis of hypertension; Essential hypertension Start: 05-18-2024 End: 05-18-2024 ambulatory FREDY MARR [facility] Start: 05-15-2024 End: 06-14-2024 ambulatory Taye Suárez RN [facility] Clinical Communication Start: 05-15-2024 End: 06-14-2024 Patient encounter procedure Taye Suárez RN [facility] Clinical Communication Start: 05-15-2024 End: 05-15-2024 Subsequent hospital visit by physician [facility] Exam Room [address] [facility] [address] Comment on above: Arrived Start: 05-15-2024 End: 05-15-2024 Emergency department patient visit Ed Gonzalez MD Work Phone: [facility] ED Comment on above: Left lower quadrant abdominal pain (Primary Dx); Urinary tract infection without hematuria, site unspecified; Nausea Start: 05-04-2024 End: 05-11-2024 Telephone encounter Mimi Zepeda DO Work Phone: [facility] Clinical Communication Comment on above: Medication Question Start: 05-03-2024 End: 05-03-2024 Subsequent hospital visit by physician Mimi Zepeda DO Work Phone: [facility] Radiology Comment on above: Flank pain Start: 05-03-2024 End: 05-03-2024 Office outpatient visit 25 minutes Mimi [facility]epeda DO [facility] above: Dysuria (Primary Dx) ; Flank pain; Atypical nevus Start: 05-03-2024 End: 05-03-2024 ambulatory [facility] Start: 05-02-2024 End: 05-02-2024 Telephone encounter Eduarda Issa APRN.CNP Work Phone: [facility] Comment on above: Results Start: 05-01-2024 End: 05-01-2024 ambulatory SELF Facility:[facility] Start: 05-01-2024 End: 05-01-2024 Office outpatient new 30 minutes Eduarda Issa APRN.CNP Work Phone: [facility] Comment on above: Dysuria (Primary Dx) Start: 03-17-2024 End: 03-17-2024 Telephone encounter Deion Estes DO Work Phone: [facility] Comment on above: Results Start: 03-16-2024 End: 03-16-2024 Orders Only Deion Estes DO Work Phone: [facility] Start: 03-15-2024 End: 03-15-2024 Refill Deion Estes DO Work Phone: [facility] Comment on above: Essential hypertensi on Start: 03-03-2024 End: 03-03-2024 Orders Only Deion Estes DO Work Phone: [facility] Comment on above: Elevated TSH (Primar y Dx) Start: 02-23-2024 End: 02-23-2024 Office outpatient visit 25 minutes Deion Estes DO Work Phone: [facility] Comment on above: Essential hypertensi on (Primary Dx); Family history of breast cancer; Hypercholesterolemia; Breast cancer screening by mammogram; Elevated TSH Start: 01-29-2024 End: 01-29-2024 Refill Deion Estes DO Work Phone: [facility] Start: 08-20-2023 End: 08-20-2023 Office outpatient visit 15 minutes Deion Estes DO Work Phone: [facility] Comment on above: Essential hypertensi on (Primary Dx); Hypercholesterolemia; Cerebral palsy, hemiplegic (CMS/HCC) (HCC) Start: 03-17-2023 End: 03-17-[address] [facility] Work Phone: Start: 03-17-2023 End: 03-17-[address] [facility] Work Phone: Start: 02-10-2023 End: 02-10-2023 Office outpatient visit 15 minutes Deion Estes DO Work Phone: [facility] Comment on above: Essential hypertensi on (Primary Dx); Breast cancer screening by mammogram; Hypercholesterolemia Start: 09-14-2022 Telephone encounter Deion fox DO Work Phone: [facility] Start: 08-11-2022 End: 08-11-2022 Office outpatient visit 15 minutes Deion Augustin Meera DO Work Phone: [facility] Comment on above: Essential hypertensi on (Primary Dx); Cerebral palsy, hemiplegic (CMS/HCC) (HCC); Hypercholesterolemia Start: 03-07-2022 End: 03-07-[address] [facility] Procedures Date Procedure Procedure Detail Performing Clinician Start: 06-23-2024 Ecg routine ecg w/le ast 12 lds w/i&r Deion Estes DO Work Phone: Start: 06-23-2024 Adult depression scr eening assessment Deion Estes DO Work Phone: Start: 05-18-2024 Urnls dip stick/tabl et rgnt non-auto w/o micrscp Fredy Marr PA-C Work Phone: Start: 05-15-2024 Ct abdomen & pelvis w/contrast material Ed Gonzalez MD Work Phone: Start: 05-15-2024 Ecg routine ecg w/le ast 12 lds trcg only w/o i&r Ed Gonzalez MD Work Phone: Start: 05-15-2024 Urinalysis complete panel - Urine Ed Gonzalez MD Work Phone: Start: 05-15-2024 Urnls dip stick/tabl et reagent auto microscopy Ed Gonzalez MD Work Phone: Start: 05-15-2024 Basic metabolic pane l calcium total Ed Gonzalez MD Work Phone: Start: 05-03-2024 Urnls dip stick/tabl et rgnt auto w/o microscopy Mimi Zepeda DO Work Phone: Start: 05-01-2024 Urnls dip stick/tabl et rgnt auto w/o microscopy [facility] Start: 04-20-2024 Thyrotropin [Units/v olume] in Serum or Plasma Mimi Zepeda DO Work Phone: Start: 03-22-2024 Mammography Mimi Zepeda DO Work Phone: Start: 02-23-2024 Lipid 1996 panel - S neil or Plasma Deion Whitebirdieye DO Work Phone: Start: 02-23-2024 Thyrotropin [Units/v olume] in Serum or Plasma Deion Estes DO Work Phone: Start: 08-20-2023 Lipid 1996 panel - S neil or Plasma Deion Estes DO Work Phone: Start: 03-17-2023 End: 03-17-2023 Screening mammography Start: 03-07-2022 End: 03-07-2022 Screening mammography Start: 09-16-2018 Colonoscopy Deion engel DO Work Phone: Plan of Treatment Date Care Activity Detail Author Start: 2033 RSV Immunization for Adults (1 - 1-dose 75+ series) RSV Immunization for Adults (1 - 1-dose 75+ series) [facility] Start: 2033 RSV Vaccine (1 - 1-dose 75+ series) RSV Vaccine (1 - 1-dose 75+ series) [facility] Start: 02-22-2029 Lipid panel [facility] Start: 09-16-2028 Screening for malignant neoplasm of colon [facility] Start: 08-20-2028 Lipid panel Lipid Panel [facility] Start: 02-22-2027 Diabetes Screening Diabetes Screening [facility] Start: 06-23-2025 Depression Screening Depression Screening [facility] Start: 05-12-2025 Screening for malignant neoplasm of colon [facility] Start: 04-20-2025 Thyroid stimulating hormone measurement TSH Level [facility] Start: 04-05-2025 End: 04-05-2025 Patient encounter procedure 04/05/2025 3:20 PM EDT Office Visit [facility] [place] [address] [place] [address] Deion Estes DO [address] [place] [address] [place] [address] [facility] [place] Start: 04-03-2025 COVID-19 Vaccine ( season) COVID-19 Vaccine ( season) [facility] Start: 04-03-2025 Influenza vaccination Influenza Vaccine (#1) [facility] Start: 03-22-2025 Screening for malignant neoplasm of breast Mammogram [facility] Start: 03-06-2025 End: 05-06-2026 DBT Breast - bilateral screening Bilateral screening mammogram with tomosynthesis Imaging Routine Breast cancer screening by mammogram Expected: 03/06/2025, Expires: 05/06/2026 [facility] Work Phone: Comment on above: Expected: 03/06/2025, Expires: Start: 02-27-2025 End: 02-27-2025 Patient encounter procedure 02/27/2025 9:20 AM EDT Office Visit [facility] [place] [address] [place] [phone] Deion Estes DO [address] [place] [address] [place] [phone] [facility] [place] Start: 02-23-2025 End: 02-23-2025 Patient encounter procedure 02/23/2025 9:00 AM EDT Office Visit [facility] [place] [address] [place] [phone] Deion Estes DO [address] [place] [phone] [facility] [place] Start: 02-22-2025 Thyroid stimulating hormone measurement TSH Level [facility] Start: 08-25-2024 End: 08-25-2024 Patient encounter procedure [facility] Start: 08-03-2024 Medicare Advantage Annual Wellness Visit Medicare [facility] Annual Wellness Visit [facility] Start: 06-23-2024 End: 06-23-2024 Patient encounter procedure [facility] Start: 05-18-2024 End: 05-18-2025 Bacteria identified in Urine by Culture Urine culture (clean catch) Microbiology Routine Left lower quadrant abdominal pain Expected: 05/18/2024 (Approximate), Expires: 05/18/2025 [facility] Work Phone: Comment on above: Expected: 05/18/2024 (Approximate), Expi res: 05/18/2025 Start: 05-18-2024 End: 05-18-2024 Patient encounter procedure 05/18/2024 11:20 AM EDT Office Visit [facility] [address] [place] [address] Fredy Marr PA-C [address] [place] [address] [place] [address] [facility] Start: 05-04-2024 End: 05-04-2025 CT Abdomen and Pelvis W contrast IV CT abdomen pelvis w contrast Imaging Routine LLQ abdominal pain Expected: 05/04/2024, Expires: 05/04/2025 [facility] Work Phone: Comment on above: Expected: 05/04/2024, Expires: Start: 05-03-2024 End: 05-03-2025 Basic metabolic 1998 panel - Serum or Plasma Basic metabolic panel Lab Routine Flank pain Expected: 05/03/2024 (Approximate), Expires: 05/03/2025 [facility] Comment on above: Expected: 05/03/2024 (Approximate), Expi res: 05/03/2025 Start: 05-03-2024 End: 05-03-2025 CBC panel - Blood by Automated count CBC Lab Routine Flank pain Expected: 05/03/2024 (Approximate), Expires: 05/03/2025 [facility] Comment on above: Expected: 05/03/2024 (Approximate), Expi res: 05/03/2025 Start: 05-03-2024 End: 05-03-2025 XR Abdomen Single view [facility] Work Phone: Comment on above: Expected: 05/03/2024, Expires: Once for 1 Occurrenc es starting 05/03/2024 until 05/03/2024 Start: 04-03-2024 COVID-19 Vaccine () COVID-19 Vaccine () [facility] Start: 04-03-2024 COVID-19 Vaccine () COVID-19 Vaccine () [facility] Start: 04-03-2024 Covid-19 Vaccine () Covid-19 Vaccine () [facility] Start: 04-03-2024 Influenza vaccination [facility] Start: 03-17-2024 Screening for malignant neoplasm of breast Mammogram [facility] Start: 03-15-2024 End: 03-15-2024 Clinical Support 03/15/2024 9:00 AM EDT Clinical Support [facility] [address] [place] [address] [facility] Start: 03-03-2024 End: 03-03-2025 Thyrotropin [Units/volume] in Serum or Plasma TSH Lab Routine Elevated TSH Expected: 03/03/2024 (Approximate), Expires: 03/03/2025 [facility] Work Phone: Comment on above: Expected: 03/03/2024 (Approximate), Expi res: 03/03/2025 Start: 02-23-2024 End: 02-22-2025 Comprehensive metabolic 1998 panel - Serum or Plasma Comprehensive metabolic panel Lab Routine Hypercholesterolemia Expected: 02/23/2024 (Approximate), Expires: 02/22/2025 [facility] Work Phone: Comment on above: Expected: 02/23/2024 (Approximate), Expi res: 02/22/2025 Start: 02-23-2024 End: 04-25-2025 DBT Breast - bilateral screening Bilateral screening mammogram with tomosynthesis Imaging Routine Breast cancer screening by mammogram Expected: 02/23/2024, Expires: 04/25/2025 [facility] Comment on above: Expected: 02/23/2024, Expires: Start: 02-23-2024 End: 02-22-2025 Lipid 1996 panel - Serum or Plasma Lipid panel Lab Routine Hypercholesterolemia Expected: 02/23/2024 (Approximate), Expires: 02/22/2025 [facility] Comment on above: Expected: 02/23/2024 (Approximate), Expi res: 02/22/2025 Start: 02-23-2024 End: 02-22-2025 Thyrotropin [Units/volume] in Serum or Plasma TSH Lab Routine Hypercholesterolemia Expected: 02/23/2024 (Approximate), Expires: 02/22/2025 [facility] Comment on above: Expected: 02/23/2024 (Approximate), Expi res: 02/22/2025 Start: 02-23-2024 End: 02-23-2024 Patient encounter procedure 02/23/2024 9:00 AM EDT Office Visit [facility] [address] [place] [address] Deion Estes F, DO [address] [place] [address] [facility] Start: 08-20-2023 End: 08-20-2024 CBC W Auto Differential panel - Blood CBC auto differential Lab Routine Essential hypertension Expected: 08/20/2023 (Approximate), Expires: 08/20/2024 [facility] [employer] Work Phone: Comment on above: Expected: 08/20/2023 (Approximate), Expi res: 08/20/2024 Start: 08-20-2023 End: 08-20-2024 Comprehensive metabolic 1998 panel - Serum or Plasma Comprehensive metabolic panel Lab Routine Essential hypertension Expected: 08/20/2023 (Approximate), Expires: 08/20/2024 [facility] Comment on above: Expected: 08/20/2023 (Approximate), Expi res: 08/20/2024 Start: 08-20-2023 End: 08-20-2024 Lipid 1996 panel - Serum or Plasma Lipid panel Lab Routine Hypercholesterolemia Expected: 08/20/2023 (Approximate), Expires: 08/20/2024 [facility] Comment on above: Expected: 08/20/2023 (Approximate), Expi res: 08/20/2024 Start: 08-20-2023 End: 08-20-2024 Thyrotropin [Units/volume] in Serum or Plasma TSH Lab Routine Hypercholesterolemia Expected: 08/20/2023 (Approximate), Expires: 08/20/2024 [facility] Comment on above: Expected: 08/20/2023 (Approximate), Expi res: 08/20/2024 Start: 08-11-2023 End: 08-11-2023 Patient encounter procedure 08/11/2023 8:00 AM EST Office Visit [facility] [address] [place], [place] [phone] Deion Estes DO [address], [place] [id number] [facility] Start: 2023 Advance Directive Discussion Advance Directive Discussion [facility] Start: 2023 Screening for osteoporosis Bone Density Screening [facility] Start: 08-03-2023 Medicare Advantage Annual Wellness Visit Medicare Advantage Annual Wellness Visit [facility] Start: 04-03-2023 COVID-19 Vaccine ( season) COVID-19 Vaccine ( season) [facility] Start: 04-03-2023 Influenza vaccination Influenza Vaccine (#1) [facility] Start: 03-07-2023 Screening for malignant neoplasm of breast Mammogram [facility] Start: 02-10-2023 End: 04-13-2024 MG Breast - bilateral Screening Bilateral screening mammogram Imaging Routine Breast cancer screening by mammogram Expected: 02/10/2023, Expires: 04/13/2024 [facility] Work Phone: Comment on above: Expected: 02/10/2023, Expires: Start: 02-10-2023 End: 02-10-2023 Patient encounter procedure 02/10/2023 Office Visit Family Medicine Deion Estes DO [address] [place] [address] [facility] Start: 08-11-2022 End: 08-11-2023 CBC W Auto Differential panel - Blood CBC auto differential Lab Routine Essential hypertension Expected: 08/11/2022 (Approximate), Expires: 08/11/2023 [facility] Work Phone: Comment on above: Expected: 08/11/2022 (Approximate), Expi res: 08/11/2023 Start: 08-11-2022 End: 08-11-2023 Comprehensive metabolic 1998 panel - Serum or Plasma Comprehensive metabolic panel Lab Routine Essential hypertension Expected: 08/11/2022 (Approximate), Expires: 08/11/2023 [facility] Comment on above: Expected: 08/11/2022 (Approximate), Expi res: 08/11/2023 Start: 08-11-2022 End: 08-11-2023 Lipid 1996 panel - Serum or Plasma Lipid panel Lab Routine Hypercholesterolemia Expected: 08/11/2022 (Approximate), Expires: 08/11/2023 [facility] Comment on above: Expected: 08/11/2022 (Approximate), Expi res: 08/11/2023 Start: 04-03-2022 Influenza vaccination Influenza Vaccine (#1) [facility] Start: 2018 RSV Immunization aged 60 or older (1 - 1-dose 60+ series) RSV Immunization aged 60 or older (1 - 1-dose 60+ series) [facility] Start: 2008 Shingrix Vaccine (1 of 2) Shingrix Vaccine (1 of 2) [facility] Start: 2008 Zoster Vaccines (1 of 2) Zoster Vaccines (1 of 2) [facility] Start: 2003 Screening for malignant neoplasm of colon [facility] Start: 1998 Screening for malignant neoplasm of breast Mammogram Screening [facility] Start: 1988 Screening for malignant neoplasm of cervix [facility] Start: 1979 Screening for malignant neoplasm of cervix Pap Smear [facility] Start: 1977 DTaP/Tdap/Td Vaccines (1 - Tdap) DTaP/Tdap/Td Vaccines (1 - Tdap) [facility] Start: 1977 Urine microalbumin profile DTaP,Tdap,Td Vaccine (1 - Tdap) [facility] Start: 1976 Anxiety Screening Anxiety Screening [facility] Start: 1976 Depression Screening Depression Screening [facility] Start: 1976 Diabetes mellitus screening Diabetes Screening [facility] Start: 1976 Hepatitis C screening Hepatitis C Screening [facility] Start: 1976 HIV screening HIV Screening [facility] Start: 1970 Depression Screening Depression Screening [facility] Start: 1959 MMR Vaccines (1 of 1 - Standard series) MMR Vaccines (1 of 1 - Standard series) [facility] Start: 1958 Annual wellness visit Medicare Initial Physical (IPPE) [facility] Start: 1958 Hepatitis B Vaccines (1 of 3 - 3-dose series) Hepatitis B Vaccines (1 of 3 - 3-dose series) [facility] Start: 1958 HIV screening HIV Screening [facility] Start: 1958 Lipid panel Lipid Panel [facility] Start: 1958 Medicare Advantage Annual Wellness Visit (AWV) Medicare Advantage Annual Wellness Visit (AWV) [facility] Start: 1958 Screening for malignant neoplasm of colon [facility] Start: 1958 Screening for osteoporosis Bone Density Scan [facility] Bacteria identified in Urine by Culture URINE CULTURE Microbiology Routine Dysuria Ordered: 05/01/2024 [facility] Work Phone: Comment on above: Ordered: 05/01/2024 ECG 12 lead ECG 12 lead CV E CG STAT 05/15/2024 7:41 AM EDT [facility] Work Phone: Immunizations Immunization Date Immunization Notes Care Provider Fa [facility] 06-23-2024 Seasonal trivalent influenza vaccine, adjuvanted, preservative free Deion Estes DO Work Phone: [facility] 06-23-2024 influenza virus vacc ine, unspecified formulation Deion Estes DO Work Phone: [facility] [employer] 08-20-2023 Pneumococcal Conjuga te PCV20, Pf (Prevnar 20) Deion Estes DO Work Phone: [facility] 05-27-2023 influenza, injectabl e, quadrivalent, preservative free Deion Estes DO Work Phone: [facility] 05-27-2023 influenza virus vacc ine, unspecified formulation Eduarda Issa APRN.GOVERNMENT SALES MANAGER Work Phone: [facility] 10-11-2020 Ana SARS-CoV-2 Vaccination Deion Estes DO Work Phone: [facility] Payers Date Payer Category Payer Self-pay [id number] 2023 Medicare [id number] 2023 Medicare HMO MMO MEDICARE ADV ANTAGE [id number] 2023 Unknown [id number] 2011 Private Health Insurance AEAAKASH DAS PPO [id number] 2011-Present [address] [place] [address] Commercial [id number] Private Health Insurance [id number] Unknown [facility] [id number] Unknown [facility] PACKAGE PLAN [id number] Unknown [id number] Social History Date Type Detail [facility] Work Phone: Start: 1960 Sex Assigned At [facility] Start: 11-14-2016 [facility] Start: 02-10-2023 End: 08-25-2024 Alcohol intake Current non-drinker of alcohol (finding) [facility] Start: 02-10-2023 End: 06-23-2024 Alcohol intake [facility] Start: 08-11-2022 End: 06-23-2024 Tobacco use panel [facility] Start: 1960 Sex Assigned At Not on file [facility] Start: 08-01-2022 End: 02-10-2023 Exposure to SARS-CoV-2 (event) Not sure [facility] Start: 11-14-2016 Tobacco use and exposure Smoke less tobacco non-user [facility] How often to you hav e a drink containing alcohol? Never [facility] How many standard dr inks containing alcohol do you have on a typical day? Patient does not drink [facility] Start: 03-03-2022 Sex Female (finding) [facility] Has the [employer], or [employer] threatened to shut off services in your home in past 12Mo No [facility] Do you belong to any clubs or organizations such as gnosticism groups, unions, fraternal or athletic groups, or school groups? Yes [facility] Are you now , , , , never or living with a partner? [facility] Do you feel stress - tense, restless, nervous, or anxious, or unable to sleep at night because your mind is troubled all the time - these days [OSQ] Not at all [facility] (I/We) worried wheth er (my/our) food would run out before (I/we) got money to buy more. Never true [facility] Clinical Notes 08-11-2022 to 04-10-2025 Telephone Encounter - Tricia Franks MA - 04/10/2025 8:23 AM EDTTelephone Encounter - Tricia Franks MA - 04/10/2025 8:23 AM EDTTelephone Encounter - Tricia Franks MA - 02/20/2025 8:06 AM EDT Note Date & Type Note Facility 04-10-2025 Telephone encounter Note Recent Visits Date Type Provider Dept 08/25/24 Office Visit Deion Augustin Meera, DO [facility] 06/23/24 Office Visit Deion Augustin Meera, DO [facility] 05/18/24 Office Visit Fredy Marr PA-C [facility] 05/03/24 Office Visit Mimi Zepeda, DO [facility] Showing recent visits within past 365 days and meeting all other requirements Future Appointments No visits were found meeting these conditions. Showing future appointments within next 90 days and meeting all other requirements Requested Prescriptions Pending Prescriptions Disp Refills baclofen (Lioresal) 10 MG tablet [Pharmacy Med Name: BACLOFEN 10 MG TABLET] 180 tablet 1 Sig: TAKE 1 TABLET BY MOUTH TWICE A DAY Provider: Deion Estes DO Verified pharmacy: yes Verified day(s) supplied: yes Verified refill(s) needed (previous prescription showing no refills in chart): Yes Have you received any controlled medications from any other provider? N/A Overdue for visit: No If yes - patient scheduled? No Most recent labs completed in chart? N/A [facility] 04-10-2025 Miscellaneous Notes Recent Visits Date Type Provider Dept 08/25/24 Office Visit Deion Augustin Meera, DO [facility] 06/23/24 Office Visit Deion Charli Meera, DO [facility] 05/18/24 Office Visit Fredy Marr PA-C [facility] 05/03/24 Office Visit Mimi Zepeda, DO [facility] Showing recent visits within past 365 days and meeting all other requirements Future Appointments No visits were found meeting these conditions. Showing future appointments within next 90 days and meeting all other requirements Requested Prescriptions Pending Prescriptions Disp Refills baclofen (Lioresal) 10 MG tablet [Pharmacy Med Name: BACLOFEN 10 MG TABLET] 180 tablet 1 Sig: TAKE 1 TABLET BY MOUTH TWICE A DAY Provider: Deion Estes DO Verified pharmacy: yes Verified day(s) supplied: yes Verified refill(s) needed (previous prescription showing no refills in chart): Yes Have you received any controlled medications from any other provider? N/A Overdue for visit: No If yes - patient scheduled? No Most recent labs completed in chart? N/A documented in this encounter [facility] 02-20-2025 Telephone encounter Note Recent Visits Date Type Provider Dept 08/25/24 Office Visit Deion Estes, DO [facility] 06/23/24 Office Visit Deion Estes, DO [facility] 05/18/24 Office Visit Fredy Marr PA-C [facility] 05/03/24 Office Visit Mimi Zepeda, DO [facility] 02/23/24 Office Visit Deion Estes DO [facility] Showing recent visits within past 365 days and meeting all other requirements Future Appointments Date Type Provider Dept 04/05/25 Appointment Deion Estes DO [facility] Showing future appointments within next 90 days and meeting all other requirements Requested Prescriptions Pending Prescriptions Disp Refills metoprolol succinate XL (Toprol-XL) 200 MG 24 hr tablet [Pharmacy Med Name: METOPROLOL SUCCINATE ER TABS 200MG] 90 tablet 3 Sig: TAKE 1 TABLET DAILY (DO NOT CRUSH OR CHEW) Provider: Deion Estes DO Verified pharmacy: yes Verified day(s) supplied: yes Verified refill(s) needed (previous prescription showing no refills in chart): Yes Have you received any controlled medications from any other provider? N/A Overdue for visit: No If yes - patient scheduled? Yes Most recent labs completed in chart? Yes Hypertension: Lab Results Component Value Date NA 135 05/15/2024 K 4.5 05/15/2024 EGFR 66.6 05/15/2024 BUN 23 (H) 05/15/2024 CREATININE 0.95 05/15/2024 [facility] 02-20-2025 Miscellaneous Notes Recent Visits Date Type Provider Dept 08/25/24 Office Visit Deion Augustin Christopherboston, DO [facility] 06/23/24 Office Visit Deion Augustin Meera, DO [facility] 05/18/24 Office Visit Fredy Marr PA-C [facility] 05/03/24 Office Visit Mimi Zepeda, DO [facility] 02/23/24 Office Visit Deion Augustin Meera, DO [facility] Showing recent visits within past 365 days and meeting all other requirements Future Appointments Date Type Provider Dept 04/05/25 Appointment Deion Estes, DO [facility] Showing future appointments within next 90 days and meeting all other requirements Requested Prescriptions Pending Prescriptions Disp Refills metoprolol succinate XL (Toprol-XL) 200 MG 24 hr tablet [Pharmacy Med Name: METOPROLOL SUCCINATE ER TABS 200MG] 90 tablet 3 Sig: TAKE 1 TABLET DAILY (DO NOT CRUSH OR CHEW) Provider: Deion Estes DO Verified pharmacy: yes Verified day(s) supplied: yes Verified refill(s) needed (previous prescription showing no refills in chart): Yes Have you received any controlled medications from any other provider? N/A Overdue for visit: No If yes - patient scheduled? Yes Most recent labs completed in chart? Yes Hypertension: Lab Results Component Value Date NA 135 05/15/2024 K 4.5 05/15/2024 EGFR 66.6 05/15/2024 BUN 23 (H) 05/15/2024 CREATININE 0.95 05/15/2024 documented in this encounter [facility] 01-23-2025 Telephone encounter Note Recent Visits Date Type Provider Dept 08/25/24 Office Visit Deion Augustin Meera, DO [facility] 06/23/24 Office Visit Deion Charli Meera, DO [facility] 05/18/24 Office Visit Fredy Marr PA-C [facility] 05/03/24 Office Visit Mimi Zepeda, DO [facility] 02/23/24 Office Visit Deion Charli Meera, DO [facility] Showing recent visits within past 365 days and meeting all other requirements Future Appointments Date Type Provider Dept 02/27/25 Appointment Deion Estes DO [facility] Showing future appointments within next 90 days and meeting all other requirements Requested Prescriptions Pending Prescriptions Disp Refills atorvastatin (Lipitor) 10 MG tablet [Pharmacy Med Name: ATORVASTATIN TABS 10MG] 90 tablet 3 Sig: TAKE 1 TABLET DAILY IN THE EVENING AFTER SUPPER spironolactone (Aldactone) 50 MG tablet [Pharmacy Med Name: SPIRONOLACTONE TABS 50MG] 90 tablet 3 Sig: TAKE 1 TABLET DAILY Provider: Deion Estes DO Verified pharmacy: yes Verified day(s) supplied: yes Verified refill(s) needed (previous prescription showing no refills in chart): Yes Have you received any controlled medications from any other provider? N/A Overdue for visit: No If yes - patient scheduled? Yes Most recent labs completed in chart? Yes Hypertension: Lab Results Component Value Date NA 135 05/15/2024 K 4.5 05/15/2024 EGFR 66.6 05/15/2024 BUN 23 (H) 05/15/2024 CREATININE 0.95 05/15/2024 and Cholesterol: Lab Results Component Value Date CHOLESTEROLT 155 02/23/2024 HDLCHOLESTER 66 02/23/2024 TRIGLYCERIDE 124 02/23/2024 LDLCHOLESTER 68 02/23/2024 CHOLHDLCRATI 2.3 02/23/2024 NONHDLCHOLES 89 02/23/2024 [facility] 01-23-2025 Miscellaneous Notes Recent Visits Date Type Provider Dept 08/25/24 Office Visit Deion Estes, DO [facility] 06/23/24 Office Visit Deion Estes, DO [facility] 05/18/24 Office Visit Fredy Marr PA-C [facility] 05/03/24 Office Visit Mimi Zepeda, DO [facility] 02/23/24 Office Visit Deion Estes DO [facility] Showing recent visits within past 365 days and meeting all other requirements Future Appointments Date Type Provider Dept 02/27/25 Appointment Deion Estes DO [facility] Showing future appointments within next 90 days and meeting all other requirements Requested Prescriptions Pending Prescriptions Disp Refills atorvastatin (Lipitor) 10 MG tablet [Pharmacy Med Name: ATORVASTATIN TABS 10MG] 90 tablet 3 Sig: TAKE 1 TABLET DAILY IN THE EVENING AFTER SUPPER spironolactone (Aldactone) 50 MG tablet [Pharmacy Med Name: SPIRONOLACTONE TABS 50MG] 90 tablet 3 Sig: TAKE 1 TABLET DAILY Provider: Deion Estes DO Verified pharmacy: yes Verified day(s) supplied: yes Verified refill(s) needed (previous prescription showing no refills in chart): Yes Have you received any controlled medications from any other provider? N/A Overdue for visit: No If yes - patient scheduled? Yes Most recent labs completed in chart? Yes Hypertension: Lab Results Component Value Date NA 135 05/15/2024 K 4.5 05/15/2024 EGFR 66.6 05/15/2024 BUN 23 (H) 05/15/2024 CREATININE 0.95 05/15/2024 and Cholesterol: Lab Results Component Value Date CHOLESTEROLT 155 02/23/2024 HDLCHOLESTER 66 02/23/2024 TRIGLYCERIDE 124 02/23/2024 LDLCHOLESTER 68 02/23/2024 CHOLHDLCRATI 2.3 02/23/2024 NONHDLCHOLES 89 02/23/2024 documented in this encounter [facility] 10-17-2024 Telephone encounter Note Recent Visits Date Type Provider Dept 08/25/24 Office Visit Deion Estes, DO [facility] 06/23/24 Office Visit Deion Estes, DO [facility] 05/18/24 Office Visit Fredy Marr PA-C [facility] 05/03/24 Office Visit Mimi Zepeda, DO [facility] 02/23/24 Office Visit Deion Estes, DO [facility] Showing recent visits within past 365 days and meeting all other requirements Future Appointments No visits were found meeting these conditions. Showing future appointments within next 90 days and meeting all other requirements Requested Prescriptions Pending Prescriptions Disp Refills baclofen (Lioresal) 10 MG tablet [Pharmacy Med Name: BACLOFEN 10 MG TABLET] 180 tablet 1 Sig: TAKE 1 TABLET BY MOUTH TWICE A DAY Provider: Deion Estes DO Verified pharmacy: yes Verified day(s) supplied: yes Verified refill(s) needed (previous prescription showing no refills in chart): Yes Have you received any controlled medications from any other provider? No Overdue for visit: No If yes - patient scheduled? Yes Most recent labs completed in chart? N/A None [facility] 10-17-2024 Miscellaneous Notes Recent Visits Date Type Provider Dept 08/25/24 Office Visit Deion Estes, DO [facility] 06/23/24 Office Visit Deion Estes, DO [facility] 05/18/24 Office Visit Fredy Marr PA-C [facility] 05/03/24 Office Visit Mimi Zepeda, DO [facility] 02/23/24 Office Visit Deion Estes, DO [facility] Showing recent visits within past 365 days and meeting all other requirements Future Appointments No visits were found meeting these conditions. Showing future appointments within next 90 days and meeting all other requirements Requested Prescriptions Pending Prescriptions Disp Refills baclofen (Lioresal) 10 MG tablet [Pharmacy Med Name: BACLOFEN 10 MG TABLET] 180 tablet 1 Sig: TAKE 1 TABLET BY MOUTH TWICE A DAY Provider: Deion Estes DO Verified pharmacy: yes Verified day(s) supplied: yes Verified refill(s) needed (previous prescription showing no refills in chart): Yes Have you received any controlled medications from any other provider? No Overdue for visit: No If yes - patient scheduled? Yes Most recent labs completed in chart? N/A None documented in this encounter [facility] 08-25-2024 History of Present illness Narrative Images from the original note were not included. [facility] - [address] [facility] [id number] Visit type: Established Patient Reason for Visit: Follow-up (Med Check) Assessment / Plan: José was seen today for follow-up. Diagnoses and all orders for this visit: Essential hypertension (Primary) Comments: Generally well-controlled at home, BP check 4 weeks continue metoprolol and Aldactone Acquired hypothyroidism Comments: Stable on Levothyroid Hypercholesterolemia Comments: Stable on Lipitor Cerebral palsy, hemiplegic (CMS/HCC) ([facility]) Comments: stable on Baclofen, stretches, water aerobics Subjective: Patient ID: José Jiménez is a 64 y.o. female. 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 She has done very well on the baclofen twice daily. Goes to water aerobics and does stretches. Review of Systems no recent earache sore throat or cough. Had a mild cold a few months ago. No purulent phlegm or fever. Denies chest pain palpitations or dyspnea on exertion. No heartburn or abdominal pain. Bowels are regular no melena or blood. No recurrent dysuria. Due for Cologuard exam in the fall. Mammogram up-to-date. No new concerns. She is looking forward to her retiring in about a year. No Known Allergies Current Outpatient Medications on File Prior to Visit Medication Sig Dispense Refill aspirin 81 MG EC tablet Take 1 tablet by mouth daily. atorvastatin (Lipitor) 10 MG tablet TAKE 1 TABLET DAILY IN THE EVENING AFTER SUPPER 90 tablet 3 baclofen (Lioresal) 10 MG tablet Take 1 tablet (10 mg) by mouth 2 times daily. 60 tablet 5 cholecalciferol (Vitamin D-3) 25 MCG (1000 UT) tablet Take 1 tablet by mouth daily. fluticasone (Flonase) 50 MCG/ACT nasal spray Administer 2 sprays into each nostril daily. Shake gently. Before first use, prime pump. After use, clean tip and replace cap. 16 g 5 levothyroxine (Synthroid, Levoxyl) 25 MCG tablet Take 1 tablet (25 mcg) by mouth daily. 90 tablet 3 metoprolol succinate XL (Toprol-XL) 200 MG 24 hr tablet TAKE 1 TABLET DAILY (DO NOT CRUSH OR CHEW) 90 tablet 1 Multiple Vitamin (Multi-Vitamin) tablet Take 1 tablet by mouth in the morning. spironolactone (Aldactone) 50 MG tablet TAKE 1 TABLET DAILY 90 tablet 3 [DISCONTINUED] metoprolol succinate XL (Toprol-XL) 200 MG 24 hr tablet Take 1 tablet (200 mg) by mouth daily. Do not crush or chew. 90 tablet 1 No current facility-administered medications on file prior to visit. Patient Active Problem List Diagnosis Family history of breast cancer Hypercholesterolemia Family history of Alzheimer's disease Essential hypertension Cerebral palsy, hemiplegic (CMS/HCC) (HCC) Hypothyroidism Cervical paraspinal muscle spasm Social History Tobacco Use Smoking status: Never Smokeless tobacco: Never Substance Use Topics Alcohol use: No Alcohol/week: 0.0 standard drinks of alcohol Past Surgical History: Procedure Laterality Date BREAST BIOPSY Right 2007 CATARACT EXTRACTION W/ INTRAOCULAR LENS IMPLANT, BILATERAL 12/2022 Dr. Ledesma, [place] WRIST TENDON SURGERY (HISTORICAL) Left 2009 Family History Problem Relation Name Age of Onset Hypertension Mother advanced dementia 85 in 01/19 Dementia Mother 78 Hypertension Father CRF Coronary artery disease Father 70 CABG smoker Prostate cancer Father at age 81, in 2013 Other ([id number]) Sister Ama Hernandez diveraroldo ds, [place] Stroke Maternal Grandmother in 60s Coronary artery disease Maternal Grandfather in 60s Breast cancer Paternal Grandmother Joi age 89 old age Coronary artery disease Paternal Grandfather in 70 Objective: BP (!) 144/78 Pulse 68 Temp 36.2 C (97.1 F) (Temporal) Ht 5' 2 (1.575 m) Wt 155 lb 9.6 oz (70.6 kg) SpO2 96% BMI 28.46 kg/m Physical Exam very pleasant alert and engaging. Normal eardrums and oropharynx. No neck masses JVD adenopathy or thyroid lesions. No carotid bruits. Heart is regular without ectopy but she does have a faint midsystolic murmur heard at the right second intercostal space lungs are clear. Abdomen soft nontender without pain hepatosplenomegaly or masses. Trace pretibial edema is chronic. Her left hemiaplasia is stable. She does note less facial and neck spasm on her bike often. Reviewed past CT of the abdomen. Resolved UTI. documented in this encounter [facility] 08-25-2024 Instructions Deion Estes DO - 08/25/2024 9:00 AM EST Call with BP readings or stop in for BP ch 4 wks documented in this encounter [facility] 08-24-2024 Telephone encounter Note Recent Visits Date Type Provider Dept 06/23/24 Office Visit Deion Estes DO [facility] 05/18/24 Office Visit Fredy Marr PA-C [facility] 05/03/24 Office Visit Mimi Zepeda, [facility] 02/23/24 Office Visit Deion Estes DO [facility] Showing recent visits within past 365 days and meeting all other requirements Future Appointments Date Type Provider Dept 08/25/24 Appointment Deion Estes DO [facility] Showing future appointments within next 90 days and meeting all other requirements Requested Prescriptions Pending Prescriptions Disp Refills metoprolol succinate XL (Toprol-XL) 200 MG 24 hr tablet [Pharmacy Med Name: METOPROLOL SUCCINATE ER TABS 200MG] 90 tablet 3 Sig: TAKE 1 TABLET DAILY (DO NOT CRUSH OR CHEW) Provider: Deion Estes DO Verified pharmacy: yes Verified day(s) supplied: yes Verified refill(s) needed (previous prescription showing no refills in chart): Yes Have you received any controlled medications from any other provider? N/A Overdue for visit: No If yes - patient scheduled? Yes Most recent labs completed in chart? Yes Hypertension: Lab Results Component Value Date NA 135 05/15/2024 K 4.5 05/15/2024 EGFR 66.6 05/15/2024 BUN 23 (H) 05/15/2024 CREATININE 0.95 05/15/2024 [facility] 08-24-2024 Miscellaneous Notes Recent Visits Date Type Provider Dept 06/23/24 Office Visit Deion Estes DO [facility] 05/18/24 Office Visit Fredy Marr PA-C [facility] 05/03/24 Office Visit Mimi Zepeda DO [facility] 02/23/24 Office Visit Deion Estes DO [facility] Showing recent visits within past 365 days and meeting all other requirements Future Appointments Date Type Provider Dept 08/25/24 Appointment Deion Augustin DO Meera [facility] Showing future appointments within next 90 days and meeting all other requirements Requested Prescriptions Pending Prescriptions Disp Refills metoprolol succinate XL (Toprol-XL) 200 MG 24 hr tablet [Pharmacy Med Name: METOPROLOL SUCCINATE ER TABS 200MG] 90 tablet 3 Sig: TAKE 1 TABLET DAILY (DO NOT CRUSH OR CHEW) Provider: Deion Estes DO Verified pharmacy: yes Verified day(s) supplied: yes Verified refill(s) needed (previous prescription showing no refills in chart): Yes Have you received any controlled medications from any other provider? N/A Overdue for visit: No If yes - patient scheduled? Yes Most recent labs completed in chart? Yes Hypertension: Lab Results Component Value Date NA 135 05/15/2024 K 4.5 05/15/2024 EGFR 66.6 05/15/2024 BUN 23 (H) 05/15/2024 CREATININE 0.95 05/15/2024 documented in this encounter [facility] 07-04-2024 Telephone encounter Note Name of caller: José Contact phone number: [phone] Relationship to Patient: patient Provider: Dr. Estes Practice: [facility] Chief Complaint/Reason for Call: pt called and wanted to inform Dr. Estes that baclofen (Lioresal) 10 MG tablet is working for her. FY Best time of day caller can be reached: any Patient advised that office/PCP has 24-48 business hours to return their call: N/A [facility] 07-04-2024 Miscellaneous Notes Name of caller: [place] Contact phone number: [phone] Relationship to Patient: patient Provider: Dr. Estes Practice: [facility] Chief Complaint/Reason for Call: pt called and wanted to inform Dr. Estes that baclofen (Lioresal) 10 MG tablet is working for her. FYI Best time of day caller can be reached: any Patient advised that office/PCP has 24-48 business hours to return their call: N/A documented in this encounter [facility] 06-23-2024 History of Present illness Narrative Images from the original note were not included. [facility] - [address] [facility] [address] Dept: [phone] Dept Chief Complaint: José Jiménez is an 63 y.o. female here for an annual wellness visit. I present the patient with history of cerebral palsy with a left hemiplegai presents for first-time annual wellness exam. Past medical, surgical, family and social history reviewed and chart updated. Breast cancer screening up-to-date. Colon cancer screening due next year Assessment/Plan : Problem List Items Addressed This Visit Hypercholesterolemia Essential hypertension Cerebral palsy, hemiplegic (CMS/HCC) (HCC) Hypothyroidism Cervical paraspinal muscle spasm Other Visit Diagnoses Encounter for initial annual wellness visit (AWV) in Medicare patient - Primary Medicare welcome visit Relevant Orders ECG 12 lead - CLINIC PERFORMED (Completed) I have reviewed and reconciled the medication list with the patient today. Current Outpatient Medications Medication Sig Dispense Refill aspirin 81 MG EC tablet Take 1 tablet by mouth daily. atorvastatin (Lipitor) 10 MG tablet TAKE 1 TABLET DAILY IN THE EVENING AFTER SUPPER 90 tablet 3 cholecalciferol (Vitamin D-3) 25 MCG (1000 UT) tablet Take 1 tablet by mouth daily. fluticasone (Flonase) 50 MCG/ACT nasal spray Administer 2 sprays into each nostril daily. Shake gently. Before first use, prime pump. After use, clean tip and replace cap. 16 g 5 metoprolol succinate XL (Toprol-XL) 200 MG 24 hr tablet Take 1 tablet (200 mg) by mouth daily. Do not crush or chew. 90 tablet 1 Multiple Vitamin (Multi-Vitamin) tablet Take 1 tablet by mouth in the morning. spironolactone (Aldactone) 50 MG tablet TAKE 1 TABLET DAILY 90 tablet 3 baclofen (Lioresal) 10 MG tablet Take 1 tablet (10 mg) by mouth 2 times daily. 60 tablet 5 levothyroxine (Synthroid, Levoxyl) 25 MCG tablet Take 1 tablet (25 mcg) by mouth daily. 90 tablet 3 No current facility-administered medications for this visit. Also reviewed during this visit: Med Hx Surg Hx Fam Hx The following health maintenance schedule was reviewed with the patient and provided in printed form in the after visit summary: Health Maintenance Topic Date Due Medicare Initial Physical (IPPE) Never done Bone Density Scan Never done MMR Vaccines (1 of 1 - Standard series) Never done Hepatitis C Screening Never done Diabetes Screening Never done DTaP/Tdap/Td Vaccines (1 - Tdap) Never done Cervical Cancer Screening Never done Zoster Vaccines (1 of 2) Never done Medicare Advantage Annual Wellness Visit Never done COVID-19 Vaccine ( season) 2024 Mammogram 03/22/2025 TSH Level 04/20/2025 Depression Screening 06/23/2025 Colorectal Cancer Screening 09/16/2028 Lipid Panel 02/22/2029 RSV Immunization for Adults (1 - 1-dose 75+ series) 2033 Influenza Vaccine Completed Pneumococcal Vaccine: 65+ Years Completed RSV Immunization under 20 Months Aged Out HIB Vaccines Aged Out Hepatitis B Vaccines Aged Out IPV Vaccines Aged Out Hepatitis A Vaccines Aged Out Meningococcal Vaccine Aged Out Rotavirus Vaccines Aged Out HPV Vaccines Aged Out List of current healthcare providers: Patient Care Team: Deion Estes DO as PCP - General Orders Placed This Encounter Procedures Flu vaccine (FLUAD), trivalent, adjuvanted, preservative-free (ages 65+) ECG 12 lead - CLINIC PERFORMED Order Specific Question: Reason for exam: Answer: Other Order Specific Question: Explanatory comment: Answer: medicare annual wellness Review of Systems no recent earache sore throat or cough. Recent UTI symptoms resolved. No constitutional symptoms. Denies chest pain shortness of breath or cough. No dysphagia or abdominal pain. Bowels are regular. No melena or blood. No breast complaints. No postmenopausal vaginal bleeding. Her only concerns today's have months of spasm of the left side of her neck. History of substantial left extremity spasm and contracture of the left hand. No true radicular symptoms of the hand or fingers. No change in vision or speech. Physical Exam very pleasant cooperative. Normal ENT. Normal eardrums and oropharynx. No carotid bruits neck masses or thyroid lesions. Heart is regular without gallops or murmurs. Lungs are clear. Abdomen without pain hepatosplenomegaly or masses. No bruits. There is some twitching over the left side of her face which is chronic. Negative Spurling's. Upper extremity strength is actually pretty good except of the left hand contraction. Reflexes are hyperactive on the left. She has some spasm of the left lower extremity as well. No Vivian's. No Babinski. Objective : BP 132/78 Pulse 68 Temp 37 C (98.6 F) (Temporal) Ht 5' 2 (1.575 m) Wt 156 lb (70.8 kg) SpO2 97% BMI 28.53 kg/m Vision Screening Right eye Left eye Both eyes Without correction 20/25 20/25 20/20 With correction Subjective : Health Risk Assessment: General: General In general, how would you say your health is?: Very good In the past 7 days, have you experienced any of the following: New or Increased Pain, New or Increased Fatigue, Loneliness, Social Isolation, Stress or Anger?: No Do you get the social and emotional suppport you need?: Yes Health Habits/Nutrition: Health Habits / Nutrition On average, how many days per week do you engage in moderate to strenous exercise (like a brisk walk)?: 5 days On average, how man minutes do you engage in exercise at this level?: 40 min Have you lost any weight without trying in the past 3 months? : No Have you seen the dentist within the past year?: Yes Hearing/ Vision: Hearing / Vision Do you or your family notice any trouble with your hearing that hasn't been managed with hearing aids?: No Do you have difficulty driving, watching TV, or doing any of your daily activities because of your eyesight?: No Have you had an eye exam within the past year?: Yes Vision Screening Right eye Left eye Both eyes Without correction 20/25 20/25 20/20 With correction Safety: Safety Do you have a working smoke detector?: Yes Do you have any tripping hazards - loose or unsecured carpets or rugs?: No Do you have any tripping hazards - clutter in doorways, halls, or stairs?: No Do you have either shower bars, grab bars, non-slip mats or non-slip surfaces in your shower or bathtub? : Yes Do all your stairways have a railing or banister? : Yes Do you fasten your seatbelt when you are in a car?: Yes ADL: ADL In the past 7 days, did you need help from others to perform any of the following everyday activities: Eating, dressing, grooming,bathing, toileting, or walking / balance? : No In the past 7 days, did you need help from others to take care of any of the following: laundry, housekeeping, banking / finances,shopping, telephone use, food preparation, transportation, or taking medications? : No Living Will: Living Will Do you have a living will?: Yes Cognitive: Cognitive Screening: Mini-Cog Clock Drawing Test (CDT): 2 Words Recalled: 2 Total Score: 4 Total Score Interpretation: Normal Mini-Cog Fall Risk: Fall Risk One or more falls in the last year:: Yes Advised to use a cane or walker to get around safely:: No Feels unsteady when walking:: No Steadies self on furniture while walking at home:: No Worried about falling:: No Interventions: Patient declines any further evaluation / treatment for this issue Depression Screening: Over the past 2 weeks, how often have you been bothered by any of the following problems? Little interest or pleasure in doing things: Not at all Feeling down, depressed, or hopeless: Not at all Patient Health Questionnaire-2 Score: 0 Interventions: Patient declines any further evaluation / treatment for this issue Tobacco Use: Social History Tobacco Use Smoking Status Never Smokeless Tobacco Never Alcohol Use: Audit Alcohol Screening Q2: How many drinks containing alcohol do you have on a typical day when you are drinking?: Patient does not drink 1. Medicare welcome visit Stable, continue healthy lifestyle low-fat meals low exercise and walk as tolerated she enjoys water aerobics - ECG 12 lead - CLINIC PERFORMED 2. Encounter for initial annual wellness visit (AWV) in Medicare patient (Primary) See above 3. Essential hypertension Stable, continue metoprolol and Aldactone 4. Acquired hypothyroidism Stable, continue Levothyroid 5. Hypercholesterolemia Stable, continue Lipitor 6. Cerebral palsy, hemiplegic (CMS/HCC) (HCC) Stable, water aerobics and stretching as needed. 7. Cervical paraspinal muscle spasm She defers x-rays and wants to try a muscle relaxer. Sounds reasonable. Prescription for baclofen given documented in this encounter [facility] 06-23-2024 Instructions Deion Estes DO - 06/23/2024 2:00 PM EST Personalized Preventative Plan for José Jiménez - 06/23/2024 Medicare offers a range of preventative health benefits. Some of the tests and screenings are paid in full while others may be subject to a deductible, co-insurance, and / or copay. Some of these benefits include a comprehensive review of your medical history including lifestyle, illnesses that may run in your family, and various assessments and screenings as appropriate. After reviewing your medical record and screening and assessments performed today, your provider may have ordered immunizations, labs, imaging, and / or referrals for you. A list of these orders (if applicable) as well as your Preventative Care list are included within your After Visit Summary for your review. Other Preventative Recommendations: A preventive eye exam by an exercise equipment specialist is recommended every 1-2 years to screen for glaucoma, cataracts, macular degeneration, and other eye disorders. A preventive dental visit is recommended every 6 months. Try to get at least 150 minutes of exercise per week or 10,000 steps per day on a pedometer. You need 1200-1500mg of calcium and [id number] international units of vitamin D per day. It is possible to meet your calcium requirement with diet alone, but a vitamin D supplement is usually necessary to meet this goal. When exposed to the sun, use a sunscreen that protects against both UVA and UVB radiation with an SPF of 30 or greater. Reapply every 2-3 hours or after sweating, drying off with a towel, or swimming. Always wear a seat belt when traveling in a car. Always wear a helmet when riding a bicycle or a motorcycle documented in this encounter [facility] [employer] 05-18-2024 Evaluation + Plan note Associated Problem(s): Essential hypertension -chronic and unstable with current elevation suspect due to currently being sick will continue to monitor [facility] 05-18-2024 Miscellaneous Notes Associated Problem(s): Essential hypertension -chronic and unstable with current elevation suspect due to currently being sick will continue to monitor documented in this encounter [facility] 05-18-2024 History of Present illness Narrative Images from the original note were not included. [facility] - [address] [facility] [address] Dept: [phone] Dept Loc: [phone] Visit type: Established Patient Reason for Visit: ER Follow-up (For a UTI) and Flu Vaccine (Patient has declined to receive influenza vaccine in the office. /) Assessment and Plan 1. Left lower quadrant abdominal pain Comments: acute issue will need to continue to monitor going to extend Keflex for 3 more days treated for pyelonephritis. Orders: - POCT Urinalysis dipstick - Urine culture (clean catch) - cephalexin (Keflex) 500 MG capsule; Take 1 capsule (500 mg) by mouth 2 times daily for 3 days., Starting 05/18/2024, Until 05/21/2024, Normal 2. Elevated blood pressure reading in office with diagnosis of hypertension 3. Essential hypertension Assessment & Plan: -chronic and unstable with current elevation suspect due to currently being sick will continue to monitor Blood pressure elevated today, history of being normal will continue to monitor Follow up if symptoms worsen or fail to improve, for Next scheduled follow-up. Subjective HPI this is a 63-year-old female underlying history of hyperlipidemia hypertension and cerebral palsy with hypothyroidism who was seen and evaluated in the ER on 05/15 for concerns of abdominal pain with nausea for the last several weeks. Patient was previously seen in the [facility] urgent care and was prescribed Macrobid for UTI and she followed up with her primary care physician on 05/03. While in the ER CT of the abdomen pelvis was done which was otherwise normal. Urine still showed signs of infection with positive nitrates protein bilirubin and urobilinogen and loaded bacteria. White count was normal at 6.1 and chemistry panel showed mild dehydration with a BUN of 23. However unfortunately no formal urine culture was done at this time in the ER the patient was placed on Keflex. Returns to office, abdomen is better but feeling little nauseated and some mild left lower quadrant pain. Was having urinary symptoms with increasing pain and frequency does report some mild left lower quadrant abdominal pain no history of diverticular disease has never had a colonoscopy in the past but she denies any blood in your stool no stool differences at this point time states nausea seems to be greatly improved on the Zofran did state she was placed on Keflex she is concerned and worried that it is coming back or that will get worse and she wants to make sure she stays ahead of it. Per ER note dated 05/15, José Jiménez is a 63 y.o. who presents to the emergency department with chief complaint of left lower quadrant abdominal pain with nausea that has been present over approximately the last 2 weeks. Patient has been to urgent care and has seen her primary care regarding this. A KUB was obtained and showed some right renal stones but no evidence of other acute or abnormal findings. At urgent care she had a urinalysis which had some blood and leukocytes and they initiated treatment with Bactrim and Pyridium for possible UTI. Urine cultures did not show evidence of UTI though patient did report some improvement with Pyridium in regards to some dysuria she has been experiencing. Continues to have worsening pain. Primary care has ordered a CT scan of the abdomen pelvis however preauthorization has not been approved yet. Pain was worse this morning so they decided to come to the emergency department for evaluation. Patient denies any bloody stools. No other complaints. Review of Systems Constitutional: Negative for chills and fever. HENT: Negative for congestion and sore throat. Respiratory: Negative for cough and shortness of breath. Cardiovascular: Negative for chest pain. Gastrointestinal: Positive for abdominal pain (mild persistent left lower quadrant pain). Negative for diarrhea, nausea and vomiting. Genitourinary: Negative for difficulty urinating, dysuria, frequency and urgency. Musculoskeletal: Negative for back pain. Neurological: Negative for dizziness and light-headedness. All other systems reviewed and are negative. No Known Allergies Outpatient Medications Prior to Visit Medication Sig Dispense Refill aspirin 81 MG EC tablet Take 1 tablet by mouth daily. atorvastatin (Lipitor) 10 MG tablet TAKE 1 TABLET DAILY IN THE EVENING AFTER SUPPER 90 tablet 3 cephalexin (Keflex) 500 MG capsule Take 1 capsule (500 mg) by mouth 2 times daily for 7 days. 14 capsule 0 cholecalciferol (Vitamin D-3) 25 MCG (1000 UT) tablet Take 1 tablet by mouth daily. fluticasone (Flonase) 50 MCG/ACT nasal spray Administer 2 sprays into each nostril daily. Shake gently. Before first use, prime pump. After use, clean tip and replace cap. 16 g 5 levothyroxine (Synthroid, Levoxyl) 25 MCG tablet Take 1 tablet (25 mcg) by mouth daily. 30 tablet 11 metoprolol succinate XL (Toprol-XL) 200 MG 24 hr tablet Take 1 tablet (200 mg) by mouth daily. Do not crush or chew. 90 tablet 1 Multiple Vitamin (Multi-Vitamin) tablet Take 1 tablet by mouth in the morning. ondansetron (Zofran) 4 MG tablet Take 1 tablet (4 mg) by mouth every 8 hours as needed for nausea or vomiting for up to 3 days. 9 tablet 0 phenazopyridine (Pyridium) 200 MG tablet Take 1 tablet (200 mg) by mouth 3 times daily as needed for bladder spasms. 30 tablet 0 spironolactone (Aldactone) 50 MG tablet TAKE 1 TABLET DAILY 90 tablet 3 No facility-administered medications prior to visit. Past Medical History: Diagnosis Date Breast cancer screening 03/2024 Cerebral palsy, hemiplegic (CMS/HCC) (HCC) Colon cancer screening 05/2022 neg Cologuard- due 2024 Essential hypertension 2017 Family history of Alzheimer's disease Family history of breast cancer pat Gm Hypercholesterolemia 2020 Hypothyroidism 2023 Menopause 2010 Social History Tobacco Use Smoking status: Never Smokeless tobacco: Never Substance Use Topics Alcohol use: No Alcohol/week: 0.0 standard drinks of alcohol Past Surgical History: Procedure Laterality Date BREAST BIOPSY Right 2007 CATARACT EXTRACTION W/ INTRAOCULAR LENS IMPLANT, BILATERAL 12/2022 Dr. Ledesma, [place] TENDON RELEASE Left Family History Problem Relation Name Age of Onset Hypertension Mother advanced dementia 85 in 01/19 Dementia Mother 78 Hypertension Father CRF Coronary artery disease Father smoker Prostate cancer Father at age 81, in 2013 Other ([id number]) Sister Ama Hernandez divert ds, [place] Stroke Maternal Grandmother in 60s Coronary artery disease Maternal Grandfather in 60s Breast cancer Paternal Grandmother Joi age 89 old age Coronary artery disease Paternal Grandfather in 70 Objective BP (!) 152/100 (BP Location: Right arm, Patient Position: Sitting, BP Cuff Size: Adult) Pulse 59 Temp 36.3 C (97.3 F) (Temporal) Ht 5' 2 (1.575 m) Wt 154 lb 9.6 oz (70.1 kg) SpO2 94% BMI 28.28 kg/m Physical Exam Vitals reviewed. Constitutional: General: She is not in acute distress. Appearance: Normal appearance. She is not ill-appearing or toxic-appearing. Eyes: General: No scleral icterus. Conjunctiva/sclera: Conjunctivae normal. Pupils: Pupils are equal, round, and reactive to light. Cardiovascular: Rate and Rhythm: Normal rate and regular rhythm. Heart sounds: Normal heart sounds. Pulmonary: Effort: Pulmonary effort is normal. No respiratory distress. Breath sounds: Normal breath sounds. No wheezing or rales. Abdominal: General: Bowel sounds are normal. There is no distension. Palpations: Abdomen is soft. There is no mass. Tenderness: There is abdominal tenderness (mild LLQ tenderness). There is no guarding. Musculoskeletal: Cervical back: Normal range of motion and neck supple. Right lower leg: No edema. Left lower leg: No edema. Skin: General: Skin is warm and dry. Neurological: Mental Status: She is alert. Psychiatric: Mood and Affect: Mood normal. Data Reviewed and Summarized Labs: Imaging/Testing: Fredy Marr PA-C 05/18/2024 Please note that portions of this note may have been completed with voice recognition software. Documentation reviewed prior to signing but minor errors in tilt tray driver may have occurred. documented in this encounter [facility] 05-15-2024 Emergency department Note EMERGENCY DEPARTMENT ENCOUNTER Pt Name: José Jiménez Birthdate 1960 Date of evaluation: 05/15/2024 ED Provider: Ed Gonzalez MD CHIEF COMPLAINT Chief Complaint Patient presents with Abdominal Pain HISTORY OF PRESENT ILLNESS (Location/Symptom, Timing/Onset, Context/Setting, Quality, Duration, Modifying Factors, Severity) Note limiting factors. I wore appropriate PPE for the entirety of this encounter. HPI José Jiménez is a 63 y.o. who presents to the emergency department with chief complaint of left lower quadrant abdominal pain with nausea that has been present over approximately the last 2 weeks. Patient has been to urgent care and has seen her primary care regarding this. A KUB was obtained and showed some right renal stones but no evidence of other acute or abnormal findings. At urgent care she had a urinalysis which had some blood and leukocytes and they initiated treatment with Bactrim and Pyridium for possible UTI. Urine cultures did not show evidence of UTI though patient did report some improvement with Pyridium in regards to some dysuria she has been experiencing. Continues to have worsening pain. Primary care has ordered a CT scan of the abdomen pelvis however preauthorization has not been approved yet. Pain was worse this morning so they decided to come to the emergency department for evaluation. Patient denies any bloody stools. No other complaints. Nursing Notes were reviewed. Limitations to history: None Outside historians: Significant other REVIEW OF SYSTEMS Review of Systems All other systems reviewed and are negative. Pertinent positives and negatives as per HPI. PAST MEDICAL HISTORY Past Medical History: Diagnosis Date Breast cancer screening 03/2024 Cerebral palsy, hemiplegic (CMS/HCC) (HCC) Colon cancer screening 05/2022 neg Cologuard- due 2024 Essential hypertension 2016 Family history of Alzheimer's disease Family history of breast cancer pat Gm Hypercholesterolemia 2020 Hypothyroidism 2023 Menopause 2010 SURGICAL HISTORY Past Surgical History: Procedure Laterality Date BREAST BIOPSY Right 2007 CATARACT EXTRACTION W/ INTRAOCULAR LENS IMPLANT, BILATERAL 12/2022 Dr. Ledesma, [place] TENDON RELEASE Left CURRENT MEDICATIONS Previous Medications ASPIRIN 81 MG EC TABLET Take 1 tablet by mouth daily. ATORVASTATIN (LIPITOR) 10 MG TABLET TAKE 1 TABLET DAILY IN THE EVENING AFTER SUPPER CHOLECALCIFEROL (VITAMIN D-3) 25 MCG (1000 UT) TABLET Take 1 tablet by mouth daily. FLUTICASONE (FLONASE) 50 MCG/ACT NASAL SPRAY Administer 2 sprays into each nostril daily. Shake gently. Before first use, prime pump. After use, clean tip and replace cap. LEVOTHYROXINE (SYNTHROID, LEVOXYL) 25 MCG TABLET Take 1 tablet (25 mcg) by mouth daily. METOPROLOL SUCCINATE XL (TOPROL-XL) 200 MG 24 HR TABLET Take 1 tablet (200 mg) by mouth daily. Do not crush or chew. MULTIPLE VITAMIN (MULTI-VITAMIN) TABLET Take 1 tablet by mouth in the morning. PHENAZOPYRIDINE (PYRIDIUM) 200 MG TABLET Take 1 tablet (200 mg) by mouth 3 times daily as needed for bladder spasms. SPIRONOLACTONE (ALDACTONE) 50 MG TABLET TAKE 1 TABLET DAILY ALLERGIES Patient has no known allergies. FAMILY HISTORY Family History Problem Relation Name Age of Onset Hypertension Mother advanced dementia 85 in 01/19 Dementia Mother 78 Hypertension Father CRF Coronary artery disease Father smoker Prostate cancer Father at age 81, in 2013 Other ([id number]) Sister Ama howard ds, [place] Stroke Maternal Grandmother in 60s Coronary artery disease Maternal Grandfather in 60s Breast cancer Paternal Grandmother Joi age 89 old age Coronary artery disease Paternal Grandfather in 70 SOCIAL HISTORY Social History Socioeconomic History Marital status: Tobacco Use Smoking status: Never Smokeless tobacco: Never Substance and Sexual Activity Alcohol use: No Alcohol/week: 0.0 standard drinks of alcohol Drug use: Never Social History Narrative to Edgar in 1990, no children, NS or ETOH. [facility] [place], [place] since 1980- retired in 12/2022. Social Determinants of Health Financial Resource Strain: Low Risk (02/06/2021) Received from [facility] Overall Financial Resource Strain (CARDIA) Difficulty of Paying Living Expenses: Not hard at all Food Insecurity: No Food Insecurity (02/06/2021) Received from [facility] Hunger Vital Sign Worried About Running Out of Food in the Last Year: Never true Ran Out of Food in the Last Year: Never true Transportation Needs: No Transportation Needs (08/08/2019) Received from [facility] PRAPARE - Transportation Lack of Transportation (Medical): No Lack of Transportation (Non-Medical): No Physical Activity: Sufficiently Active (08/08/2019) Received from [facility] Exercise Vital Sign Days of Exercise per Week: 5 days Minutes of Exercise per Session: 60 min Stress: No Stress Concern Present (08/08/2019) Received from [facility] [employer] [place] [employer] - Occupational Stress Questionnaire Feeling of Stress : Not at all Social Connections: Moderately Integrated (08/08/2019) Received from [facility] Social Connection and Isolation Panel [NHANES] Frequency of Communication with Friends and Family: More than three times a week Frequency of Social Gatherings with Friends and Family: Once a week Attends Yazidi Services: More than 4 times per year Active Member of Clubs or Organizations: No Attends Club or Organization Meetings: Never Marital Status: SCREENINGS PHYSICAL EXAM ED Triage Vitals [05/15/24 0712] Temp Heart Rate Resp BP 36.3 C (97.3 F) 80 16 (!) 136/103 SpO2 Temp Source Heart Rate Source Patient Position 99 % Oral Monitor -- BP Location FiO2 (%) -- -- Physical Exam Vitals and nursing note reviewed. Exam conducted with a social media content specialist present. Constitutional: General: She is not in acute distress. Appearance: She is well-developed. She is not ill-appearing or diaphoretic. HENT: Head: Normocephalic. Eyes: General: No scleral icterus. Cardiovascular: Rate and Rhythm: Normal rate and regular rhythm. Pulmonary: Effort: Pulmonary effort is normal. No respiratory distress. Abdominal: Palpations: Abdomen is soft. Tenderness: There is abdominal tenderness in the left lower quadrant. There is guarding. There is no right CVA tenderness, left CVA tenderness or rebound. Negative signs include Gonzalez's sign and Rovsing's sign. Skin: General: Skin is warm and dry. Neurological: Mental Status: She is alert and oriented to person, place, and time. 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 Baseline per patient and . DIAGNOSTIC RESULTS Procedures/EKG: EKG was reviewed by myself. [facility] (Per Emergency Physician): Interpretation per the Radiologist below, if available at the time of this note: CT abdomen pelvis w contrast Final Result No evidence of acute infectious or inflammatory process in the abdomen or pelvis. Report Dictated on Electronically Signed By: José Luis Rosen MD Electronically Signed Date/Time: 05/15/2024 8:40 AM EDT ED BEDSIDE ULTRASOUND: Performed by ED Physician - none LABS: Labs Reviewed CBC WITH AUTO DIFFERENTIAL - Abnormal Result Value Auto WBC 6.1 RBC 4.73 Hemoglobin 15.3 Hematocrit 44.2 MCV 93.4 MCH 32.3 MCHC 34.6 RDW 11.8 Platelets 175 MPV 10.1 nRBC 0.0 Neutrophils Relative 72.9 Lymphocytes Relative 13.2 (*) Monocytes Relative 11.1 Eosinophils Relative 2.3 Basophils Relative 0.2 Immature Grans % 0.3 Neutrophils Absolute 4.5 Lymphocytes Absolute 0.8 (*) Monocytes Absolute 0.7 Eosinophils Absolute 0.1 Basophils Absolute 0.0 Immature Grans Absolute 0.0 BASIC METABOLIC PANEL - Abnormal SODIUM 135 POTASSIUM 4.5 CHLORIDE 102 CARBON DIOXIDE 24 UREA NITROGEN 23 (*) CREATININE 0.95 GLUCOSE 116 (*) CALCIUM 9.9 ANION GAP 9 eGFR 66.6 COMPLETE URINALYSIS - Abnormal Color, Urine Dark Yellow (*) Clarity, Urine Clear pH, Urine 5.5 Leukocytes, Urine Negative Nitrite, Urine Positive (*) Protein, Urine 20 (*) Glucose, Urine Normal Bilirubin, Urine 0.5 (*) Ketones, Urine Negative Urobilinogen, Urine 2 (*) Blood, Urine Negative Volume, Urine QNS for accurate quantitation. RBC, Urine Negative WBC, Urine 0-2 Squamous Epithelial, Urine 0-2 Bacteria, Urine Loaded (*) SPECIFIC GRAVITY OF URINE (NUMERIC) 1.024 LACTIC ACID WITH REFLEX - Normal LACTIC ACID 0.9 COMPLETE URINALYSIS WITH REFLEX TO CULTURE Narrative: The following orders were created for panel order Urinalysis Complete with reflex to Culture. Procedure Abnormality Status --------- ------ Complete Urinalysis[[id number]] Abnormal Final result Please view results for these tests on the individual orders. All other labs were within normal range or not returned as of this dictation. EMERGENCY DEPARTMENT COURSE and DIFFERENTIAL DIAGNOSIS/MDM: Vitals: Vitals: 05/15/24 0712 BP: (!) 136/103 Pulse: 80 Resp: 16 Temp: 36.3 C (97.3 F) TempSrc: Oral SpO2: 99% Weight: 68.5 kg (151 lb) Height: 1.575 m (5' 2) Patient presents complaining of abdominal pain over the last 2 weeks with nausea this morning. Patient was seen in urgent care and had a primary care visit for this pain previously. Urine dip at urgent care with leukocytosis and blood. Was interpreted at that time as urinary tract infection and patient was treated with Bactrim and Pyridium. Urine culture grew out normal urogenital erasto and was unlikely a UTI. No fevers or chills. Patient does have some tenderness to palpation in the left lower quadrant with some voluntary guarding. Otherwise unremarkable abdominal exam. No CVA tenderness bilaterally. Patient has had dysuria again recently though this was relieved with Pyridium. Patient generally appears well. Given the left lower quadrant tenderness I did obtain CT scan with suspicion for diverticulitis. Also suspicion for partial bowel obstruction given the nausea this morning. Epiploic appendagitis also considered. Given the dysuria we also repeated a urinalysis here today. No significant arrangements appreciated on CBC or BMP. Lactic acid level is not elevated. Mesenteric ischemia deemed unlikely. Urinalysis does seem to indicate urinary tract infection with nitrite positive urine and bacteria. Patient has been having dysuria recently. IV Rocephin initiated in the ED. Patient was treated with Zofran for her nausea and upon reevaluation nausea has completely resolved. She is tolerating p.o. fluids in the ED. Given the lack of CVA tenderness have low suspicion for pyelonephritis. CT of the abdomen and pelvis with IV contrast was obtained and shows no evidence of any inflammatory changes to include appendicitis, epiploic appendagitis, diverticulitis. No evidence of of ureteral stone as an etiology. No acute findings per radiologist's read. Given the patient's improvement and the lack of any indicators of sepsis I feel patient is safe for discharge with outpatient follow-up. I recommended that she call her primary care physician's office tomorrow to schedule appropriate follow-up and repeat urinalysis. Urine cultures are pending. Return precautions discussed and questions answered at the bedside prior to discharge. Diagnoses as of 05/15/24 0853 Left lower quadrant abdominal pain Urinary tract infection without hematuria, site unspecified Nausea Medications ondansetron (Zofran) injection 4 mg (4 mg IntraVENous Given 05/15/24 0747) cefTRIAXone (Rocephin) 1,000 mg in sodium chloride 0.9 % 50 mL IVPB Mini-Bag Plus (1,000 mg IntraVENous New Bag 05/15/24 0822) REVAL: CRITICAL CARE TIME None CONSULTS: None PROCEDURES: Unless otherwise noted below, none Procedures Patients symptoms are consistent with sepsis, severe sepsis, or septic shock (If yes use .sepsiscoremeasure): No FINAL IMPRESSION 1. Left lower quadrant abdominal pain 2. Urinary tract infection without hematuria, site unspecified 3. Nausea DISPOSITION Discharge 05/15/2024 08:50:26 AM PATIENT REFERRED TO: [facility] [place] [address] [facility] [phone] Call in 1 day [facility] ED [address] [facility] [phone] If symptoms worsen DISCHARGE MEDICATIONS: New Prescriptions CEPHALEXIN (KEFLEX) 500 MG CAPSULE Take 1 capsule (500 mg) by mouth 2 times daily for 7 days. ONDANSETRON (ZOFRAN) 4 MG TABLET Take 1 tablet (4 mg) by mouth every 8 hours as needed for nausea or vomiting for up to 3 days. (Comment: Please note this report has been produced using speech recognition software and may contain errors related to that system including errors in grammar, punctuation, and spelling, as well as words and phrases that may be inappropriate. If there are any questions or concerns please feel free to contact the dictating provider for clarification.) Ed Gonzalez MD (electronically signed) Emergency Medicine Provider Ed Gonzalez MD 05/15/24 0857 Patient to room 4 with c/o lower left quad abdominal pain for 2 weeks. Patient reports diarrhea and nausea. V/S obtained, call light within reach. documented in this encounter [facility] 05-15-2024 Emergency department Triage note Patient to room 4 with c/o lower left quad abdominal pain for 2 weeks. Patient reports diarrhea and nausea. V/S obtained, call light within reach. [facility] 05-15-2024 Physician Emergency department Note EMERGENCY DEPARTMENT ENCOUNTER Pt Name: José Jiménez Birthdate 1960 Date of evaluation: 05/15/2024 ED Provider: Ed Gonzalez MD CHIEF COMPLAINT Chief Complaint Patient presents with Abdominal Pain HISTORY OF PRESENT ILLNESS (Location/Symptom, Timing/Onset, Context/Setting, Quality, Duration, Modifying Factors, Severity) Note limiting factors. I wore appropriate PPE for the entirety of this encounter. HPI José Jiménez is a 63 y.o. who presents to the emergency department with chief complaint of left lower quadrant abdominal pain with nausea that has been present over approximately the last 2 weeks. Patient has been to urgent care and has seen her primary care regarding this. A KUB was obtained and showed some right renal stones but no evidence of other acute or abnormal findings. At urgent care she had a urinalysis which had some blood and leukocytes and they initiated treatment with Bactrim and Pyridium for possible UTI. Urine cultures did not show evidence of UTI though patient did report some improvement with Pyridium in regards to some dysuria she has been experiencing. Continues to have worsening pain. Primary care has ordered a CT scan of the abdomen pelvis however preauthorization has not been approved yet. Pain was worse this morning so they decided to come to the emergency department for evaluation. Patient denies any bloody stools. No other complaints. Nursing Notes were reviewed. Limitations to history: None Outside historians: Significant other REVIEW OF SYSTEMS Review of Systems All other systems reviewed and are negative. Pertinent positives and negatives as per HPI. PAST MEDICAL HISTORY Past Medical History: Diagnosis Date Breast cancer screening 03/2024 Cerebral palsy, hemiplegic (CMS/HCC) (HCC) Colon cancer screening 05/2022 neg Cologuard- due 2024 Essential hypertension 2016 Family history of Alzheimer's disease Family history of breast cancer pat Gm Hypercholesterolemia 2020 Hypothyroidism 2023 Menopause 2010 SURGICAL HISTORY Past Surgical History: Procedure Laterality Date BREAST BIOPSY Right 2008 CATARACT EXTRACTION W/ INTRAOCULAR LENS IMPLANT, BILATERAL 12/2022 Dr. Ledesma, [place] TENDON RELEASE Left CURRENT MEDICATIONS Previous Medications ASPIRIN 81 MG EC TABLET Take 1 tablet by mouth daily. ATORVASTATIN (LIPITOR) 10 MG TABLET TAKE 1 TABLET DAILY IN THE EVENING AFTER SUPPER CHOLECALCIFEROL (VITAMIN D-3) 25 MCG (1000 UT) TABLET Take 1 tablet by mouth daily. FLUTICASONE (FLONASE) 50 MCG/ACT NASAL SPRAY Administer 2 sprays into each nostril daily. Shake gently. Before first use, prime pump. After use, clean tip and replace cap. LEVOTHYROXINE (SYNTHROID, LEVOXYL) 25 MCG TABLET Take 1 tablet (25 mcg) by mouth daily. METOPROLOL SUCCINATE XL (TOPROL-XL) 200 MG 24 HR TABLET Take 1 tablet (200 mg) by mouth daily. Do not crush or chew. MULTIPLE VITAMIN (MULTI-VITAMIN) TABLET Take 1 tablet by mouth in the morning. PHENAZOPYRIDINE (PYRIDIUM) 200 MG TABLET Take 1 tablet (200 mg) by mouth 3 times daily as needed for bladder spasms. SPIRONOLACTONE (ALDACTONE) 50 MG TABLET TAKE 1 TABLET DAILY ALLERGIES Patient has no known allergies. FAMILY HISTORY Family History Problem Relation Name Age of Onset Hypertension Mother advanced dementia 85 in 01/19 Dementia Mother 78 Hypertension Father CRF Coronary artery disease Father smoker Prostate cancer Father at age 81, in 2013 Other ([id number]) Sister Ama howard ds, [place] Stroke Maternal Grandmother in 60s Coronary artery disease Maternal Grandfather in 60s Breast cancer Paternal Grandmother Joi age 89 old age Coronary artery disease Paternal Grandfather in 70 SOCIAL HISTORY Social History Socioeconomic History Marital status: Tobacco Use Smoking status: Never Smokeless tobacco: Never Substance and Sexual Activity Alcohol use: No Alcohol/week: 0.0 standard drinks of alcohol Drug use: Never Social History Narrative to Edgar in 1990, no children, NS or ETOH[facility] [place] [facility]- retired in 12/2022. Social Determinants of Health Financial Resource Strain: Low Risk (02/06/2021) Received from [facility] Overall Financial Resource Strain (CARDIA) Difficulty of Paying Living Expenses: Not hard at all Food Insecurity: No Food Insecurity (02/06/2021) Received from [facility] Hunger Vital Sign Worried About Running Out of Food in the Last Year: Never true Ran Out of Food in the Last Year: Never true Transportation Needs: No Transportation Needs (08/08/2019) Received from [facility] PRAPARE - Transportation Lack of Transportation (Medical): No Lack of Transportation (Non-Medical): No Physical Activity: Sufficiently Active (08/08/2019) Received from [facility] Exercise Vital Sign Days of Exercise per Week: 5 days Minutes of Exercise per Session: 60 min Stress: No Stress Concern Present (08/08/2019) Received from [facility] [employer] [place] [employer] - Occupational Stress Questionnaire Feeling of Stress : Not at all Social Connections: Moderately Integrated (08/08/2019) Received from [facility] Social Connection and Isolation Panel [NHANES] Frequency of Communication with Friends and Family: More than three times a week Frequency of Social Gatherings with Friends and Family: Once a week Attends Yazidi Services: More than 4 times per year Active Member of Clubs or Organizations: No Attends Club or Organization Meetings: Never Marital Status: SCREENINGS PHYSICAL EXAM ED Triage Vitals [05/15/24 0712] Temp Heart Rate Resp BP 36.3 C (97.3 F) 80 16 (!) 136/103 SpO2 Temp Source Heart Rate Source Patient Position 99 % Oral Monitor -- BP Location FiO2 (%) -- -- Physical Exam Vitals and nursing note reviewed. Exam conducted with a social media content specialist present. Constitutional: General: She is not in acute distress. Appearance: She is well-developed. She is not ill-appearing or diaphoretic. HENT: Head: Normocephalic. Eyes: General: No scleral icterus. Cardiovascular: Rate and Rhythm: Normal rate and regular rhythm. Pulmonary: Effort: Pulmonary effort is normal. No respiratory distress. Abdominal: Palpations: Abdomen is soft. Tenderness: There is abdominal tenderness in the left lower quadrant. There is guarding. There is no right CVA tenderness, left CVA tenderness or rebound. Negative signs include Gonzalez's sign and Rovsing's sign. Skin: General: Skin is warm and dry. Neurological: Mental Status: She is alert and oriented to person, place, and time. 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 Baseline per patient and . DIAGNOSTIC RESULTS Procedures/EKG: EKG was reviewed by myself. Physician EKG interpretation can be found in [facility] RADIOLOGY (Per Emergency Physician): Interpretation per the Radiologist below, if available at the time of this note: CT abdomen pelvis w contrast Final Result No evidence of acute infectious or inflammatory process in the abdomen or pelvis. Report Dictated on Electronically Signed By: José uLis Rosen MD Electronically Signed Date/Time: 05/15/2024 8:40 AM EDT ED BEDSIDE ULTRASOUND: Performed by ED Physician - none LABS: Labs Reviewed CBC WITH AUTO DIFFERENTIAL - Abnormal Result Value Auto WBC 6.1 RBC 4.73 Hemoglobin 15.3 Hematocrit 44.2 MCV 93.4 MCH 32.3 MCHC 34.6 RDW 11.8 Platelets 175 MPV 10.1 nRBC 0.0 Neutrophils Relative 72.9 Lymphocytes Relative 13.2 (*) Monocytes Relative 11.1 Eosinophils Relative 2.3 Basophils Relative 0.2 Immature Grans % 0.3 Neutrophils Absolute 4.5 Lymphocytes Absolute 0.8 (*) Monocytes Absolute 0.7 Eosinophils Absolute 0.1 Basophils Absolute 0.0 Immature Grans Absolute 0.0 BASIC METABOLIC PANEL - Abnormal SODIUM 135 POTASSIUM 4.5 CHLORIDE 102 CARBON DIOXIDE 24 UREA NITROGEN 23 (*) CREATININE 0.95 GLUCOSE 116 (*) CALCIUM 9.9 ANION GAP 9 eGFR 66.6 COMPLETE URINALYSIS - Abnormal Color, Urine Dark Yellow (*) Clarity, Urine Clear pH, Urine 5.5 Leukocytes, Urine Negative Nitrite, Urine Positive (*) Protein, Urine 20 (*) Glucose, Urine Normal Bilirubin, Urine 0.5 (*) Ketones, Urine Negative Urobilinogen, Urine 2 (*) Blood, Urine Negative Volume, Urine QNS for accurate quantitation. RBC, Urine Negative WBC, Urine 0-2 Squamous Epithelial, Urine 0-2 Bacteria, Urine Loaded (*) SPECIFIC GRAVITY OF URINE (NUMERIC) 1.024 LACTIC ACID WITH REFLEX - Normal LACTIC ACID 0.9 COMPLETE URINALYSIS WITH REFLEX TO CULTURE Narrative: The following orders were created for panel order Urinalysis Complete with reflex to Culture. Procedure Abnormality Status --------- ------ Complete Urinalysis[[id number]] Abnormal Final result Please view results for these tests on the individual orders. All other labs were within normal range or not returned as of this dictation. EMERGENCY DEPARTMENT COURSE and DIFFERENTIAL DIAGNOSIS/MDM: Vitals: Vitals: 05/15/24 0712 BP: (!) 136/103 Pulse: 80 Resp: 16 Temp: 36.3 C (97.3 F) TempSrc: Oral SpO2: 99% Weight: 68.5 kg (151 lb) Height: 1.575 m (5' 2) Patient presents complaining of abdominal pain over the last 2 weeks with nausea this morning. Patient was seen in urgent care and had a primary care visit for this pain previously. Urine dip at urgent care with leukocytosis and blood. Was interpreted at that time as urinary tract infection and patient was treated with Bactrim and Pyridium. Urine culture grew out normal urogenital erasto and was unlikely a UTI. No fevers or chills. Patient does have some tenderness to palpation in the left lower quadrant with some voluntary guarding. Otherwise unremarkable abdominal exam. No CVA tenderness bilaterally. Patient has had dysuria again recently though this was relieved with Pyridium. Patient generally appears well. Given the left lower quadrant tenderness I did obtain CT scan with suspicion for diverticulitis. Also suspicion for partial bowel obstruction given the nausea this morning. Epiploic appendagitis also considered. Given the dysuria we also repeated a urinalysis here today. No significant arrangements appreciated on CBC or BMP. Lactic acid level is not elevated. Mesenteric ischemia deemed unlikely. Urinalysis does seem to indicate urinary tract infection with nitrite positive urine and bacteria. Patient has been having dysuria recently. IV Rocephin initiated in the ED. Patient was treated with Zofran for her nausea and upon reevaluation nausea has completely resolved. She is tolerating p.o. fluids in the ED. Given the lack of CVA tenderness have low suspicion for pyelonephritis. CT of the abdomen and pelvis with IV contrast was obtained and shows no evidence of any inflammatory changes to include appendicitis, epiploic appendagitis, diverticulitis. No evidence of of ureteral stone as an etiology. No acute findings per radiologist's read. Given the patient's improvement and the lack of any indicators of sepsis I feel patient is safe for discharge with outpatient follow-up. I recommended that she call her primary care physician's office tomorrow to schedule appropriate follow-up and repeat urinalysis. Urine cultures are pending. Return precautions discussed and questions answered at the bedside prior to discharge. Diagnoses as of 05/15/24 0853 Left lower quadrant abdominal pain Urinary tract infection without hematuria, site unspecified Nausea Medications ondansetron (Zofran) injection 4 mg (4 mg IntraVENous Given 05/15/24 0747) cefTRIAXone (Rocephin) 1,000 mg in sodium chloride 0.9 % 50 mL IVPB Mini-Bag Plus (1,000 mg IntraVENous New Bag 05/15/24 0822) REVAL: CRITICAL CARE TIME None CONSULTS: None PROCEDURES: Unless otherwise noted below, none Procedures Patients symptoms are consistent with sepsis, severe sepsis, or septic shock (If yes use .sepsiscoremeasure): No FINAL IMPRESSION 1. Left lower quadrant abdominal pain 2. Urinary tract infection without hematuria, site unspecified 3. Nausea DISPOSITION Discharge 05/15/2024 08:50:26 AM PATIENT REFERRED TO: [facility] [place] [facility] [place] [address] [facility] [phone] Call in 1 day [facility] ED [address] [place] [facility] [phone] If symptoms worsen DISCHARGE MEDICATIONS: New Prescriptions CEPHALEXIN (KEFLEX) 500 MG CAPSULE Take 1 capsule (500 mg) by mouth 2 times daily for 7 days. ONDANSETRON (ZOFRAN) 4 MG TABLET Take 1 tablet (4 mg) by mouth every 8 hours as needed for nausea or vomiting for up to 3 days. (Comment: Please note this report has been produced using speech recognition software and may contain errors related to that system including errors in grammar, punctuation, and spelling, as well as words and phrases that may be inappropriate. If there are any questions or concerns please feel free to contact the dictating provider for clarification.) Ed Gonzalez MD (electronically signed) Emergency Medicine Provider Ed Gonzalez MD 05/15/24 0857 [facility] 05-15-2024 Telephone encounter Note S: Patient spoke with [facility] nurse regarding abdominal pain. B: Onset of symptoms/concern 05/15/2024. A: Patient reports a constant 8/10 LLQ abdominal pain and intermittent nausea that started yesterday, states pain has been ongoing since 05/12 OV, but she has not had pain for x2-3 days. Patient woke up yesterday with pain and nausea which is still present, also reports urinary frequency. Patient is eating and drinking normally. Patient mentions that she has not completed CT that was ordered at last OV. R: Advised patient to go to ED now for further evaluation of symptoms, she verbalized understanding and states her will drive her to [place] ED. No further needs at this time. Patient instructed to call back with new or worsening symptoms. Reason for Disposition [1] SEVERE pain AND [2] age > 60 years Protocols used: Abdominal Pain - [id number] T [facility] 05-15-2024 Miscellaneous Notes S: Patient spoke with [facility] nurse regarding abdominal pain. B: Onset of symptoms/concern 05/15/2024. A: Patient reports a constant 8/10 LLQ abdominal pain and intermittent nausea that started yesterday, states pain has been ongoing since 05/12 OV, but she has not had pain for x2-3 days. Patient woke up yesterday with pain and nausea which is still present, also reports urinary frequency. Patient is eating and drinking normally. Patient mentions that she has not completed CT that was ordered at last OV. R: Advised patient to go to ED now for further evaluation of symptoms, she verbalized understanding and states her will drive her to [facility]. No further needs at this time. Patient instructed to call back with new or worsening symptoms. Reason for Disposition [1] SEVERE pain AND [2] age > 60 years Protocols used: Abdominal Pain - [id number] documented in this encounter [facility] 05-04-2024 Telephone encounter Note ordered [facility] 05-04-2024 Miscellaneous Notes ordered ----- Message from Shy Crawford sent at 05/04/2024 2:19 PM EDT ----- SW patient. She has left side pain. Discussed results. She is in agreement for a CT and realizes she will need a prior auth . LVM for patient med sent Flonase sent Name of caller: José Contact phone number: [phone] Relationship to Patient: patient Provider: DO Duane Practice: [facility] Chief Complaint/Reason for Call: Pt states she was in office yesterday and provider was going to call her in Flonase along with the other script and it has not been sent. Pt is requesting a call back to verify if it will be sent to her [facility] pharmacy. Pt states she would like provider to know that she is feeling much better since starting the Pyridium. Please advise Best time of day caller can be reached: Any Patient advised that office/PCP has 24-48 business hours to return their call: Yes documented in this encounter [facility] 05-04-2024 Telephone encounter Note ----- Message from Shy Crawford sent at 05/04/2024 2:19 PM EDT ----- SW patient. She has left side pain. Discussed results. She is in agreement for a CT and realizes she will need a prior auth . [facility] 05-04-2024 Telephone encounter Note LVM for patient med sent [facility] 05-04-2024 Telephone encounter Note Flonase sent [facility] 05-04-2024 Telephone encounter Note Name of caller: José Contact phone number: [phone] Relationship to Patient: patient Provider: DO Du[place] Practice: [facility] Chief Complaint/Reason for Call: Pt states she was in office yesterday and provider was going to call her in Flonase along with the other script and it has not been sent. Pt is requesting a call back to verify if it will be sent to her [facility] pharmacy. Pt states she would like provider to know that she is feeling much better since starting the Pyridium. Please advise Best time of day caller can be reached: Any Patient advised that office/PCP has 24-48 business hours to return their call: Yes [facility] 05-03-2024 History of Present illness Narrative Images from the original note were not included. [facility] - [address] [facility] [phone] Visit type: Established Patient Reason for Visit: UTI (Patient was seen seen at [facility] urgent care Thursday morning she is still taking the macrobid. They told her she does not have a UTI she is still having symptoms ) and Flu Vaccine (Patient has declined to receive influenza vaccine in the office. ) Assessment and Plan Diagnoses and all orders for this visit: Dysuria - AMB POC URINALYSIS DIP STICK AUTO W/O MICRO Flank pain - XR abdomen 1 view; Future - Basic metabolic panel; Future - CBC; Future Atypical nevus - Ambulatory referral to Dermatology; Future Other orders - phenazopyridine (Pyridium) 200 MG tablet; Take 1 tablet (200 mg) by mouth 3 times daily as needed for bladder spasms. Unclear etiology of her urinary symptoms. Will check an x-ray. Might need to consider a CAT scan. Check labs. Reviewed labs done by the urgent care. The urine culture grew less than 10,000 CFU's of a vaginal erasto. Urinalysis did have some trace red blood cells. I would like her to discontinue the Macrobid. We will give her Pyridium to help with the pain. Check lab work and x-ray. No follow-ups on file. Subjective HPI Patient is a 63-year-old white female with a past medical history of hypertension and cerebral palsy who presents for UTI symptoms. She states that on Thursday she woke up with frequency and discomfort. She went to an urgent care and was diagnosed with a UTI. She was treated with 2 days of Macrobid. The nurse called her yesterday and said that the urine culture was normal and she should discontinue the antibiotics. She is having left flank/abdominal pain. She denies any diarrhea or constipation. No nausea. She does have a lot of urinary frequency. She does not have a history of kidney stones. She denies any hematuria. Review of Systems Constitutional: Negative for appetite change, chills, fatigue and fever. Respiratory: Negative for cough, shortness of breath and wheezing. Cardiovascular: Negative for chest pain, palpitations and leg swelling. Gastrointestinal: Positive for abdominal pain. Genitourinary: Positive for flank pain, frequency and urgency. Negative for vaginal pain. No Known Allergies Outpatient Medications Prior to Visit Medication Sig Dispense Refill aspirin 81 MG EC tablet Take 1 tablet by mouth daily. atorvastatin (Lipitor) 10 MG tablet TAKE 1 TABLET DAILY IN THE EVENING AFTER SUPPER 90 tablet 3 cholecalciferol (Vitamin D-3) 25 MCG (1000 UT) tablet Take 1 tablet by mouth daily. levothyroxine (Synthroid, Levoxyl) 25 MCG tablet Take 1 tablet (25 mcg) by mouth daily. 30 tablet 11 metoprolol succinate XL (Toprol-XL) 200 MG 24 hr tablet Take 1 tablet (200 mg) by mouth daily. Do not crush or chew. 90 tablet 1 Multiple Vitamin (Multi-Vitamin) tablet Take 1 tablet by mouth in the morning. nitrofurantoin, macrocrystal-monohydrate, (Macrobid) 100 MG capsule Take 100 mg by mouth in the morning and 100 mg in the evening. spironolactone (Aldactone) 50 MG tablet TAKE 1 TABLET DAILY 90 tablet 3 No facility-administered medications prior to visit. Past Medical History: Diagnosis Date Breast cancer screening 03/2024 Cerebral palsy, hemiplegic (CMS/HCC) (HCC) Colon cancer screening 05/2022 neg Cologuard- due 2024 Essential hypertension 2017 Family history of Alzheimer's disease Family history of breast cancer pat Gm Hypercholesterolemia 2020 Hypothyroidism 2023 Menopause 2010 Social History Socioeconomic History Marital status: Tobacco Use Smoking status: Never Smokeless tobacco: Never Substance and Sexual Activity Alcohol use: No Alcohol/week: 0.0 standard drinks of alcohol Drug use: Never Social History Narrative to Edgar in 1990, no children, NS or ETOH. [facility] [place], [place] since 1980- retired in 12/2022. Social Determinants of Health Financial Resource Strain: Low Risk (02/06/2021) Received from [facility] Overall Financial Resource Strain (CARDIA) Difficulty of Paying Living Expenses: Not hard at all Food Insecurity: No Food Insecurity (02/06/2021) Received from [facility] Hunger Vital Sign Worried About Running Out of Food in the Last Year: Never true Ran Out of Food in the Last Year: Never true Transportation Needs: No Transportation Needs (08/08/2019) Received from [facility] PRAPARE - Transportation Lack of Transportation (Medical): No Lack of Transportation (Non-Medical): No Physical Activity: Sufficiently Active (08/08/2019) Received from [facility] Exercise Vital Sign Days of Exercise per Week: 5 days Minutes of Exercise per Session: 60 min Stress: No Stress Concern Present (08/08/2019) [facility] from [facility] [place] [facility] - Occupational Stress Questionnaire Feeling of Stress : Not at all Social Connections: Moderately Integrated (08/08/2019) Received from [facility] Social Connection and Isolation Panel [NHANES] Frequency of Communication with Friends and Family: More than three times a week Frequency of Social Gatherings with Friends and Family: Once a week Attends Yazidi Services: More than 4 times per year Active Member of Clubs or Organizations: No Attends Club or Organization Meetings: Never Marital Status: Past Surgical History: Procedure Laterality Date BREAST BIOPSY Right 2007 CATARACT EXTRACTION W/ INTRAOCULAR LENS IMPLANT, BILATERAL 12/2022 Boogie Jacobs TENDON RELEASE Left Past Surgical History: Procedure Laterality Date BREAST BIOPSY Right 2007 CATARACT EXTRACTION W/ INTRAOCULAR LENS IMPLANT, BILATERAL 12/2022 Boogie Jacobs TENDON RELEASE Left Family History Problem Relation Name Age of Onset Hypertension Mother advanced dementia 85 in 01/19 Dementia Mother 78 Hypertension Father CRF Coronary artery disease Father smoker Prostate cancer Father at age 81, in 2013 Other ([id number]) Sister Ama Hernandez divert ds, [place] Stroke Maternal Grandmother in 60s Coronary artery disease Maternal Grandfather in 60s Breast cancer Paternal Grandmother Joi age 89 old age Coronary artery disease Paternal Grandfather in 70 Objective BP 128/78 Pulse 78 Ht 5' 2 (1.575 m) Wt 156 lb (70.8 kg) SpO2 96% BMI 28.53 kg/m Physical Exam Data Reviewed POCT: Labs: Imaging/Testing: Chart Clean Up: There are no discontinued medications. Mimi Zepeda DO 05/03/2024 2:14 PM documented in this encounter [facility] 05-02-2024 Telephone encounter Note Birthday verified with patient over the phone. Aware of the below information with all questions answered. Advised to stop antibiotic and follow up with primary care. [facility] 05-02-2024 Miscellaneous Notes Birthday verified with patient over the phone. Aware of the below information with all questions answered. Advised to stop antibiotic and follow up with primary care. documented in this encounter [facility] 05-01-2024 Note HNO ID: [id number] Author: EDUARDA ISSA APRN.CNP Service: ? Author Type: Nurse Practitioner Type: Progress Notes Filed: 05/01/2024 10:01 Note Text: This note was created using [employer]. Subjective José Jiménez is a 63 year old female. HPI by patient: José Jiménez is a 63 year old presenting to the office with the complaint of uti symptoms. Started at 3 am Associated symptoms include painful urination and frequency. Denies fever, chills, nausea, vomiting, abdominal pain, and back pain. Denies vaginal symptoms. OTC not used. No antibiotic use in the last 60 days. ALLERGIES No Known Allergies No family history on file. Social History Tobacco Use Smoking status: Never Smokeless tobacco: Never Active Ambulatory Problems No Active Ambulatory Problems Resolved Ambulatory Problems No Resolved Ambulatory Problems No Additional Past Medical History Review of Systems Constitutional: Negative. HENT: Negative. Eyes: Negative. Respiratory: Negative. Cardiovascular: Negative. Gastrointestinal: Negative. Endocrine: Negative. Genitourinary: Positive for dysuria and frequency. Musculoskeletal: Negative. Skin: Negative. Neurological: Negative. Hematological: Negative. Objective Pulse 82 Temp 36.3 ?C (97.4 ?F) Wt 69.6 kg (153 lb 5.3 oz) SpO2 93% Physical Exam Vitals reviewed. Constitutional: General: She is not in acute distress. Appearance: She is not ill-appearing, toxic-appearing or diaphoretic. Cardiovascular: Rate and Rhythm: Normal rate and regular rhythm. Pulmonary: Effort: Pulmonary effort is normal. Abdominal: General: Bowel sounds are normal. Palpations: Abdomen is soft. Tenderness: There is generalized abdominal tenderness. There is no right CVA tenderness, left CVA tenderness, guarding or rebound. Neurological: Mental Status: She is alert. Assessment and Plan (R30.0) Dysuria (primary encounter diagnosis) Plan: URINE CULTURE, nitrofurantoin monohydrate and macrocrystal (MACROBID) 100 mg capsule UA is positive for leukocytes and trace blood. Will start macrobid and send culture. -Increase fluids. Focus on clears. -Decrease sugary drink intake. Minimize caffeine. -Wipe front to back. No tight clothing. No bubble baths. -Results will be released to [facility] unless there is a need for a change in medication. -If no improvement in 3-5 days please be re-seen by primary care.. -Be seen immediately or go to the ER with worsening/warning symptoms. Warning symptoms include: chills, severe flank pain, severe abdominal/pelvic pain, fevers 101 or higher, chest pain, and respiratory distress. The patient will pursue further outpatient evaluation with the primary care physician or another Urgent Care/Express Care as outlined in the after visit summary. The patient is agreeable to this plan of care and follow-up instructions have been explained in detail. The patient has received these instructions in written format and have expressed an understanding of the after visit summary. Medical Decision Making: Level: 4 - Moderate I spent a total of 20 minutes on the date of the service which included preparing to see the patient, [id number] patient care, completing clinical documentation, obtaining and/or reviewing separately obtained history, performing a medically appropriate examination, counseling and educating the patient/family/caregiver, and ordering medications, tests, or procedures. [facility] 05-01-2024 History of Present illness Narrative This note was created using [employer]. Subjective José Jiménez is a 63 year old female. HPI by patient: José Jiménez is a 63 year old presenting to the office with the complaint of uti symptoms. Started at 3 am Associated symptoms include painful urination and frequency. Denies fever, chills, nausea, vomiting, abdominal pain, and back pain. Denies vaginal symptoms. OTC not used. No antibiotic use in the last 60 days. ALLERGIES No Known Allergies No family history on file. Social History Tobacco Use Smoking status: Never Smokeless tobacco: Never Active Ambulatory Problems No Active Ambulatory Problems Resolved Ambulatory Problems No Resolved Ambulatory Problems No Additional Past Medical History Review of Systems Constitutional: Negative. HENT: Negative. Eyes: Negative. Respiratory: Negative. Cardiovascular: Negative. Gastrointestinal: Negative. Endocrine: Negative. Genitourinary: Positive for dysuria and frequency. Musculoskeletal: Negative. Skin: Negative. Neurological: Negative. Hematological: Negative. Objective Pulse 82 Temp 36.3 C (97.4 F) Wt 69.6 kg (153 lb 5.3 oz) SpO2 93% Physical Exam Vitals reviewed. Constitutional: General: She is not in acute distress. Appearance: She is not ill-appearing, toxic-appearing or diaphoretic. Cardiovascular: Rate and Rhythm: Normal rate and regular rhythm. Pulmonary: Effort: Pulmonary effort is normal. Abdominal: General: Bowel sounds are normal. Palpations: Abdomen is soft. Tenderness: There is generalized abdominal tenderness. There is no right CVA tenderness, left CVA tenderness, guarding or rebound. Neurological: Mental Status: She is alert. Assessment and Plan (R30.0) Dysuria (primary encounter diagnosis) Plan: URINE CULTURE, nitrofurantoin monohydrate and macrocrystal (MACROBID) 100 mg capsule UA is positive for leukocytes and trace blood. Will start macrobid and send culture. -Increase fluids. Focus on clears. -Decrease sugary drink intake. Minimize caffeine. -Wipe front to back. No tight clothing. No bubble baths. -Results will be released to [facility] unless there is a need for a change in medication. -If no improvement in 3-5 days please be re-seen by primary care.. -Be seen immediately or go to the ER with worsening/warning symptoms. Warning symptoms include: chills, severe flank pain, severe abdominal/pelvic pain, fevers 101 or higher, chest pain, and respiratory distress. The patient will pursue further outpatient evaluation with the primary care physician or another Urgent Care/Express Care as outlined in the after visit summary. The patient is agreeable to this plan of care and follow-up instructions have been explained in detail. The patient has received these instructions in written format and have expressed an understanding of the after visit summary. Medical Decision Making: Level: 4 - Moderate I spent a total of 20 minutes on the date of the service which included preparing to see the patient, [id number] patient care, completing clinical documentation, obtaining and/or reviewing separately obtained history, performing a medically appropriate examination, counseling and educating the patient/family/caregiver, and ordering medications, tests, or procedures. documented in this encounter [facility] 05-01-2024 Instructions Eduarda Issa APRN.CNP - 05/01/2024 9:28 AM EDT (R30.0) Dysuria (primary encounter diagnosis) Plan: URINE CULTURE, nitrofurantoin monohydrate and macrocrystal (MACROBID) 100 mg capsule UA is positive for leukocytes and trace blood. Will start macrobid and send culture. -Increase fluids. Focus on clears. -Decrease sugary drink intake. Minimize caffeine. -Wipe front to back. No tight clothing. No bubble baths. -Results will be released to [facility] unless there is a need for a change in medication. -If no improvement in 3-5 days please be re-seen by primary care.. -Be seen immediately or go to the ER with worsening/warning symptoms. Warning symptoms include: chills, severe flank pain, severe abdominal/pelvic pain, fevers 101 or higher, chest pain, and respiratory distress. Certain foods and beverages might irritate your bladder, including: Coffee, tea and carbonated drinks, even without caffeine. Alcohol. Certain acidic fruits -- oranges, grapefruits, sumit and limes -- and fruit juices. Spicy foods. Tomato-based products. Carbonated drinks. Chocolate. documented in this encounter [facility] 03-17-2024 Telephone encounter Note Message released to patient as written. Patient's further questions if applicable: N/A Were all questions from office addressed or relayed to the patient from encounter: Yes [facility] 03-17-2024 Miscellaneous Notes Message released to patient as written. Patient's further questions if applicable: N/A Were all questions from office addressed or relayed to the patient from encounter: Yes Placed call to patient to discuss provider direction. Message left on voicemail to return call. Please release message to patient: I refilled the Toprol 200 mg dosage to her mail away pharmacy. Of note I thought I did it yesterday as well ----- Message from Deion Estes DO sent at 03/16/2024 5:53 PM EDT ----- ----- Message ----- From: Neisha Robles MA Sent: 03/15/2024 9:11 AM EDT To: Deion Estes DO Patient requested to have new dose of Toprol called into pharmacy documented in this encounter [facility] 03-17-2024 Telephone encounter Note Placed call to patient to discuss provider direction. Message left on voicemail to return call. Please release message to patient: I refilled the Toprol 200 mg dosage to her mail away pharmacy. Of note I thought I did it yesterday as well [facility] 03-17-2024 Telephone encounter Note ----- Message from Deion Estes DO sent at 03/16/2024 5:53 PM EDT ----- ----- Message ----- From: Neisha Robles MA Sent: 03/15/2024 9:11 AM EDT To: Deion Estes DO Patient requested to have new dose of Toprol called into pharmacy [facility] 03-15-2024 Telephone encounter Note Recent Visits Date Type Provider Dept 02/23/24 Office Visit Deion Estes DO [facility] 08/20/23 Office Visit Deion Estes DO [facility] Showing recent visits within past 365 days and meeting all other requirements Future Appointments No visits were found meeting these conditions. Showing future appointments within next 90 days and meeting all other requirements Requested Prescriptions Pending Prescriptions Disp Refills metoprolol succinate XL (Toprol-XL) 200 MG 24 hr tablet 90 tablet 3 Sig: Take 1 tablet (200 mg) by mouth daily. Do not crush or chew. Provider: Deion Estes DO Overdue for visit: No If yes - patient scheduled? Yes Most recent labs completed in chart? Yes Verified pharmacy: yes Verified day(s) supplied: yes Verified refill(s) needed (previous prescription showing no refills in chart): Yes Have you received any controlled medications from any other provider? N/A Hypertension: Lab Results Component Value Date EGFR 58 (L) 02/23/2024 BUN 22 02/23/2024 CREATININE 1.07 (H) 02/23/2024 [facility] 03-15-2024 Miscellaneous Notes Recent Visits Date Type Provider Dept 02/23/24 Office Visit Deion Estes DO [facility] 08/20/23 Office Visit Deion Estes DO [facility] Showing recent visits within past 365 days and meeting all other requirements Future Appointments No visits were found meeting these conditions. Showing future appointments within next 90 days and meeting all other requirements Requested Prescriptions Pending Prescriptions Disp Refills metoprolol succinate XL (Toprol-XL) 200 MG 24 hr tablet 90 tablet 3 Sig: Take 1 tablet (200 mg) by mouth daily. Do not crush or chew. Provider: Deion Estes DO Overdue for visit: No If yes - patient scheduled? Yes Most recent labs completed in chart? Yes Verified pharmacy: yes Verified day(s) supplied: yes Verified refill(s) needed (previous prescription showing no refills in chart): Yes Have you received any controlled medications from any other provider? N/A Hypertension: Lab Results Component Value Date EGFR 58 (L) 02/23/2024 BUN 22 02/23/2024 CREATININE 1.07 (H) 02/23/2024 documented in this encounter [facility] 03-15-2024 History of Present illness Narrative The patient, José Jiménez, identity was verified by name and . Supervising provider for clinic visit: Dr. Deion Estes Chief Complaint Patient presents with Blood Pressure Check Reason for visit: 3 to 4 week blood pressure check follow up José Jiménez is taking medication list reviewed completely with patient for HTN Patient states compliant with medications as written: Yes BP medication taken prior to this visit? Yes - takes in the morning 630am Are you having any symptoms? No Current Blood Pressure: 1147/89 Current Heart Rate:61 Did Blood Pressure need rechecked: yes Second Blood Pressure Readin/80 Second Heart Rate: 61 Assessment/Plan: There are no diagnoses linked to this encounter. elevated Future Appointments Date Time Provider Department Center 03/15/2024 9:00 AM SCHEDULE, [facility] 08/25/2024 9:00 AM Deion Estes DO [facility] Cc'd provider blood pressure readings? Yes I refilled the Toprol 200 mg dosage to her mail away pharmacy. Of note I thought I did it yesterday as well documented in this encounter [facility] 03-15-2024 History of Present illness Narrative The patient, José Jiménez, identity was verified by name and . Supervising provider for clinic visit: Dr. Deion Estes Chief Complaint Patient presents with Blood Pressure Check Reason for visit: 3 to 4 week blood pressure check follow up José Jiménez is taking medication list reviewed completely with patient for HTN Patient states compliant with medications as written: Yes BP medication taken prior to this visit? Yes - takes in the morning 630am Are you having any symptoms? No Current Blood Pressure: 1147/89 Current Heart Rate:61 Did Blood Pressure need rechecked: yes Second Blood Pressure Readin/80 Second Heart Rate: 61 Assessment/Plan: There are no diagnoses linked to this encounter. elevated Future Appointments Date Time Provider Department Center 03/15/2024 9:00 AM SCHEDULE, [facility] 08/25/2024 9:00 AM Deion Estes DO [facility] Cc'd provider blood pressure readings? Yes I refilled the Toprol 200 mg dosage to her mail away pharmacy. Of note I thought I did it yesterday as well Placed call to patient to discuss provider direction. Message left on voicemail to return call. documented in this encounter [facility] 02-23-2024 History of Present illness Narrative Images from the original note were not included. [facility] [address] [place] [address] Visit type: Established Patient Reason for Visit: Follow-up Assessment / Plan: José was seen today for follow-up. Diagnoses and all orders for this visit: Essential hypertension (Primary) Comments: Uncontrolled, increase metoprolol to 100 mg daily. BP check 4 weeks Family history of breast cancer Hypercholesterolemia Comments: Stable stable, continue low-fat meals and Lipitor Orders: - Comprehensive metabolic panel; Future - Lipid panel; Future - Comprehensive metabolic panel - Lipid panel - TSH; Future - TSH Breast cancer screening by mammogram - Bilateral screening mammogram with tomosynthesis; Future Elevated TSH Comments: Noted, recheck lab Subjective: Patient ID: José Jiménez is a 63 y.o. female. HPI hypertension lipid management for non-smoker. Overall feeling well. Has gained some weight. Blood pressure slightly elevated. No new medical concerns. Needs breast exam and mammogram. Review of Systems No recent earache sore throat or cough. No chest pain palpitations PND orthopnea claudication or edema. No abdominal pain. Bowels are regular. Colon cancer screening up-to-date. No constipation diarrhea melena or blood. No dysuria frequency. No change in the status of her arm and leg. Trying to walk for exercise. No breast complaints No Known Allergies Current Outpatient Medications on File Prior to Visit Medication Sig Dispense Refill aspirin 81 MG EC tablet Take 1 tablet by mouth daily. atorvastatin (Lipitor) 10 MG tablet TAKE 1 TABLET DAILY IN THE EVENING AFTER SUPPER 90 tablet 3 cholecalciferol (Vitamin D-3) 25 MCG (1000 UT) tablet Take 1 tablet by mouth daily. metoprolol succinate XL (Toprol-XL) 100 MG 24 hr tablet TAKE 1 TABLET DAILY 90 tablet 3 Multiple Vitamin (Multi-Vitamin) tablet Take 1 tablet by mouth in the morning. spironolactone (Aldactone) 50 MG tablet TAKE 1 TABLET DAILY 90 tablet 3 No current facility-administered medications on file prior to visit. Patient Active Problem List Diagnosis Family history of breast cancer Hypercholesterolemia Family history of Alzheimer's disease Essential hypertension Cerebral palsy, hemiplegic (CMS/HCC) (HCC) Social History Tobacco Use Smoking status: Never Smokeless tobacco: Never Substance Use Topics Alcohol use: No Alcohol/week: 0.0 standard drinks of alcohol Past Surgical History: Procedure Laterality Date BREAST BIOPSY Right 2007 CATARACT EXTRACTION W/ INTRAOCULAR LENS IMPLANT, BILATERAL 12/2022 Dr. Ledesma, Boogie TENDON RELEASE Left Family History Problem Relation Name Age of Onset Hypertension Mother advanced dementia 85 in 01/19 Dementia Mother 78 Hypertension Father CRF Coronary artery disease Father smoker Prostate cancer Father at age 81, in 2013 Other ([id number]) Sister Ama howard ds, [place] Stroke Maternal Grandmother in 60s Coronary artery disease Maternal Grandfather in 60s Breast cancer Paternal Grandmother Joi age 89 old age Coronary artery disease Paternal Grandfather in 70 Objective: BP (!) 156/56 (BP Location: Left arm, Patient Position: Sitting, BP Cuff Size: Large adult) Pulse 74 Temp 36.2 C (97.2 F) (Temporal) Ht 5' 2 (1.575 m) Wt 152 lb 6.4 oz (69.1 kg) SpO2 98% BMI 27.87 kg/m Physical Exam Vitals reviewed. Constitutional: General: She is not in acute distress. Appearance: Normal appearance. HENT: Right Ear: Tympanic membrane normal. Left Ear: Tympanic membrane normal. Nose: No congestion or rhinorrhea. Mouth/Throat: Pharynx: No oropharyngeal exudate. Eyes: General: No scleral icterus. Neck: Vascular: No carotid bruit. Cardiovascular: Rate and Rhythm: Normal rate and regular rhythm. Pulses: Normal pulses. Heart sounds: Normal heart sounds. No murmur heard. Pulmonary: Effort: Pulmonary effort is normal. Breath sounds: Normal breath sounds. Abdominal: General: Bowel sounds are normal. Palpations: Abdomen is soft. Tenderness: There is no abdominal tenderness. Comments: No hepatosplenomegaly masses bruits or ascites. Femoral pulses good. Genitourinary: Comments: No breast masses, nipple discharge, skin changes, or axillary adenopathy Musculoskeletal: Right lower leg: No edema. Lymphadenopathy: Cervical: No cervical adenopathy. Skin: General: Skin is warm. Neurological: Mental Status: She is alert and oriented to person, place, and time. Deep Tendon Reflexes: Reflexes normal. Psychiatric: Mood and Affect: Mood normal. Thought Content: Thought content normal. documented in this encounter [facility] 02-23-2024 Instructions Deion Estes DO - 02/23/2024 9:00 AM EDT bp check with staff in 3-4 wks. documented in this encounter [facility] 01-29-2024 Telephone encounter Note Recent Visits Date Type Provider Dept [facility] DO [facility] H[facility] Showing recent visits within past 365 days and meeting all other requirements Future Appointments Date Type Provider Dept [facility] appointments within next 90 days and meeting all other requirements Requested Prescriptions Pending Prescriptions Disp Refills spironolactone (Aldactone) 50 MG tablet [Pharmacy Med Name: SPIRONOLACTONE TABS 50MG] 90 tablet 3 Sig: TAKE 1 TABLET DAILY metoprolol succinate XL (Toprol-XL) 100 MG 24 hr tablet [Pharmacy Med Name: METOPROLOL SUCCINATE ER TABS 100MG] 90 tablet 3 Sig: TAKE 1 TABLET DAILY atorvastatin (Lipitor) 10 MG tablet [Pharmacy Med Name: ATORVASTATIN TABS 10MG] 90 tablet 3 Sig: TAKE 1 TABLET DAILY IN THE EVENING AFTER SUPPER Provider: Deion Estes DO Overdue for visit: No If yes - patient scheduled? Yes Most recent labs completed in chart? Yes Verified pharmacy: yes Verified day(s) supplied: yes Verified refill(s) needed (previous prescription showing no refills in chart): Yes Have you received any controlled medications from any other provider? N/A Hypertension: Lab Results Component Value Date EGFR 54 (L) 08/20/2023 BUN 23 08/20/2023 CREATININE 1.13 (H) 08/20/2023 [facility] 01-29-2024 Miscellaneous Notes Recent Visits Date Type Provider Dept 08/20/23 Office Visit DO Kayden Harden [facility] 07/11/23 Office Visit DO Kayden Harden [facility] Showing recent visits within past 365 days and meeting all other requirements Future Appointments Date Type Provider Dept 02/23/24 Appointment DO Kayden Harden [facility] Showing future appointments within next 90 days and meeting all other requirements Requested Prescriptions Pending Prescriptions Disp Refills spironolactone (Aldactone) 50 MG tablet [Pharmacy Med Name: SPIRONOLACTONE TABS 50MG] 90 tablet 3 Sig: TAKE 1 TABLET DAILY metoprolol succinate XL (Toprol-XL) 100 MG 24 hr tablet [Pharmacy Med Name: METOPROLOL SUCCINATE ER TABS 100MG] 90 tablet 3 Sig: TAKE 1 TABLET DAILY atorvastatin (Lipitor) 10 MG tablet [Pharmacy Med Name: ATORVASTATIN TABS 10MG] 90 tablet 3 Sig: TAKE 1 TABLET DAILY IN THE EVENING AFTER SUPPER Provider: Deion Estes DO Overdue for visit: No If yes - patient scheduled? Yes Most recent labs completed in chart? Yes Verified pharmacy: yes Verified day(s) supplied: yes Verified refill(s) needed (previous prescription showing no refills in chart): Yes Have you received any controlled medications from any other provider? N/A Hypertension: Lab Results Component Value Date EGFR 54 (L) 08/20/2023 BUN 23 08/20/2023 CREATININE 1.13 (H) 08/20/2023 documented in this encounter [facility] 08-20-2023 History of Present illness Narrative Images from the original note were not included. [facility] [address] [place] [address] [address] [facility] [id number] Visit type: Established Patient Reason for Visit: Follow-up (6 month med check) Assessment / Plan: José was seen today for follow-up. Diagnoses and all orders for this visit: Essential hypertension (Primary) - CBC auto differential; Future - Comprehensive metabolic panel; Future - CBC auto differential - Comprehensive metabolic panel Hypercholesterolemia - Lipid panel; Future - TSH; Future - Lipid panel - TSH Cerebral palsy, hemiplegic (CMS/HCC) (HCC) Other orders - atorvastatin (Lipitor) 10 MG tablet; TAKE 1 TABLET BY MOUTH EVERY DAY EVENING AFTER SUPPER - metoprolol succinate XL (Toprol-XL) 100 MG 24 hr tablet; Take 1 tablet (100 mg) by mouth daily for 180 doses. - spironolactone (Aldactone) 50 MG tablet; Take 1 tablet (50 mg) by mouth daily. - Pneumococcal conjugate vaccine 20-valent IM (PREVNAR 20) Blood pressure and lipids well-controlled, continue current meds Subjective: Patient ID: José Jiménez is a 63 y.o. female. HPI hypertension lipid management for non-smoker with history of cerebral palsy and left hemiplegia. Overall she is feeling well. No recent earache sore throat or cough. Vaccinations up-to-date Review of Systems no recent headache rhinorrhea cough or fever. No exertional chest pain or shortness of breath. No dysphagia or abdominal pain. Bowels are regular. No melena or blood. No vaginal bleeding. Mammogram up-to-date. Colon cancer screening due in a year or 2. Rare arthralgia except for left shoulder spasm. No recent falls or injury. Overall pretty upbeat and positive since her long term this past year No Known Allergies Current Outpatient Medications on File Prior to Visit Medication Sig Dispense Refill aspirin 81 MG EC tablet Take 1 tablet by mouth daily. cholecalciferol (Vitamin D-3) 25 MCG (1000 UT) tablet Take 1 tablet by mouth daily. Multiple Vitamin (Multi-Vitamin) tablet Take 1 tablet by mouth in the morning. [DISCONTINUED] atorvastatin (Lipitor) 10 MG tablet TAKE 1 TABLET BY MOUTH EVERY DAY EVENING AFTER SUPPER 90 tablet 1 [DISCONTINUED] metoprolol succinate XL (Toprol-XL) 100 MG 24 hr tablet Take 1 tablet (100 mg) by mouth daily for 180 doses. 90 tablet 1 [DISCONTINUED] spironolactone (Aldactone) 50 MG tablet Take 1 tablet (50 mg) by mouth daily. 90 tablet 1 No current facility-administered medications on file prior to visit. Patient Active Problem List Diagnosis Family history of breast cancer Hypercholesterolemia Family history of Alzheimer's disease Essential hypertension Cerebral palsy, hemiplegic (CMS/HCC) (HCC) Social History Tobacco Use Smoking status: Never Smokeless tobacco: Never Substance Use Topics Alcohol use: No Alcohol/week: 0.0 standard drinks of alcohol Past Surgical History: Procedure Laterality Date BREAST BIOPSY Right 2007 CATARACT EXTRACTION W/ INTRAOCULAR LENS IMPLANT, BILATERAL 12/2022 Dr. Ledesma, [place] TENDON RELEASE Left Family History Problem Relation Name Age of Onset Hypertension Mother advanced dementia 85 in 01/19 Dementia Mother 78 Hypertension Father CRF Coronary artery disease Father smoker Prostate cancer Father at age 81, in 2013 Other ([id number]) Sister Ama howard ds, [place] Stroke Maternal Grandmother in 60s Coronary artery disease Maternal Grandfather in 60s Breast cancer Paternal Grandmother Joi age 89 old age Coronary artery disease Paternal Grandfather in 70 Objective: BP 123/88 Pulse 78 Temp 36.4 C (97.5 F) (Temporal) Ht 5' 2 (1.575 m) Wt 151 lb (68.5 kg) SpO2 96% BMI 27.62 kg/m Physical Exam very pleasant and engaging. Blood pressure recheck excellent. No neck masses JVD adenopathy or carotid bruits. Normal eardrums and oropharynx. Heart is regular without gallops or murmurs. Lungs are clear. Abdomen soft without pain hepatosplenomegaly masses bruits or ascites. No adenopathy. Left hemiplegia unchanged. Extremities without edema and pulses are well documented in this encounter [facility] 02-10-2023 History of Present illness Narrative Images from the original note were not included. [facility] [address] [place] [id number] Visit type: Established Patient Reason for Visit: Follow-up (6 month med check) Assessment / Plan: José was seen today for follow-up. Diagnoses and all orders for this visit: Essential hypertension (Primary) Comments: Stable, continue metoprolol and Aldactone Breast cancer screening by mammogram - Bilateral screening mammogram; Future Hypercholesterolemia Comments: Stable, continue atorvastatin Other orders - atorvastatin (Lipitor) 10 MG tablet; TAKE 1 TABLET BY MOUTH EVERY DAY EVENING AFTER SUPPER - metoprolol succinate XL (Toprol-XL) 100 MG 24 hr tablet; Take 1 tablet (100 mg) by mouth daily for 180 doses. - spironolactone (Aldactone) 50 MG tablet; Take 1 tablet (50 mg) by mouth daily. Subjective: Patient ID: José Jiménez is a 62 y.o. female. HPI hypertension lipid management for recently retired patient. She feels great. Had bilateral cataract surgery. Adjusting to not working. She enjoys reading and does walking routinely. 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 Review of Systems no recent earache sore throat or cough. No chest pain or palpitations. No cough or shortness of breath. No recent infections. No bowel changes. Colon cancer screening up-to-date. Needs breast exam and mammogram. No breast complaints. No Known Allergies Current Outpatient Medications on File Prior to Visit Medication Sig Dispense Refill aspirin 81 MG EC tablet Take 1 tablet by mouth daily. cholecalciferol (Vitamin D-3) 25 MCG (1000 UT) tablet Take 1 tablet by mouth daily. Multiple Vitamin (Multi-Vitamin) tablet Take 1 tablet by mouth in the morning. [DISCONTINUED] atorvastatin (Lipitor) 10 MG tablet TAKE 1 TABLET BY MOUTH EVERY DAY EVENING AFTER SUPPER 90 tablet 1 [DISCONTINUED] metoprolol succinate XL (Toprol-XL) 100 MG 24 hr tablet Take 1 tablet (100 mg) by mouth daily for 90 doses. 90 tablet 1 [DISCONTINUED] spironolactone (Aldactone) 50 MG tablet Take 1 tablet (50 mg) by mouth daily. 90 tablet 1 No current facility-administered medications on file prior to visit. Patient Active Problem List Diagnosis Family history of breast cancer Hypercholesterolemia Family history of Alzheimer's disease Essential hypertension Cerebral palsy, hemiplegic (CMS/HCC) (HCC) Social History Tobacco Use Smoking status: Never Smokeless tobacco: Never Substance Use Topics Alcohol use: No Alcohol/week: 0.0 standard drinks of alcohol Past Surgical History: Procedure Laterality Date BREAST BIOPSY Right 2007 CATARACT EXTRACTION W/ INTRAOCULAR LENS IMPLANT, BILATERAL 12/2022 Dr. Ledesma, [place] TENDON RELEASE Left Family History Problem Relation Name Age of Onset Hypertension Mother advanced dementia 85 in 01/19 Dementia Mother 78 Hypertension Father CRF Coronary artery disease Father smoker Prostate cancer Father at age 81, in 2013 Other ([id number]) Sister Ama howard ds, [place] Breast cancer Maternal Grandmother Joi Yanez Objective: BP 117/80 Pulse 78 Temp 36.2 C (97.1 F) (Temporal) Ht 5' 2 (1.575 m) Wt 144 lb (65.3 kg) SpO2 98% BMI 26.34 kg/m Physical Exam she appears well. No thyroid neck masses. No JVD adenopathy carotid bruits. Heart is regular gallops or murmurs. Lungs are clear. Abdomen soft nontender without pain hepatosplenomegaly masses or bruits. Femoral pulses good. No adenopathy. Extremities are unchanged, with moderate left-sided spastic hemiplegia from her CP. No breast masses, nipple discharge, skin changes, or axillary adenopathy documented in this encounter [facility] 09-16-2022 Telephone encounter Note Message released to patient as written. Patient's further questions if applicable: Pt had no questions. Were all questions from office addressed or relayed to the patient from encounter: Yes [facility] 09-16-2022 Miscellaneous Notes Message released to patient as written. Patient's further questions if applicable: Pt had no questions. Were all questions from office addressed or relayed to the patient from encounter: Yes Unable to reach patient by telephone. Left detail message for patient to return call. Call patient to inform her her recent lab as well. Normal glucose and LDL cholesterol is at goal on meds. Normal renal, liver functions and CBC. No med changes. documented in this encounter [facility] [employer] 09-15-2022 Telephone encounter Note Unable to reach patient by telephone. Left detail message for patient to return call. [facility] 09-14-2022 Telephone encounter Note Call patient to inform her her recent lab as well. Normal glucose and LDL cholesterol is at goal on meds. Normal renal, liver functions and CBC. No med changes. [facility] 08-11-2022 History of Present illness Narrative Images from the original note were not included. [facility] [address] [facility] [address] Visit type: Established Patient Reason for Visit: 6 Month Follow-up Subjective: Patient ID: José Jiménez is a 62 y.o. female. HPI hypertension lipid management. No new concerns except for her recent news that she will be retiring. She felt she had a suboptimal evaluation at work and after discussing issues with her she is retiring in the next few months. 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 Review of Systems Overall feeling fair. No recent earache or sore throat. Had the flu before . No residual cough phlegm or fever. Denies exertional chest pain shortness of breath PND orthopnea claudication or edema. Bowels and bladder unremarkable. Had a left breast ultrasound in mammogram in March. Due for routine study next summer. No breast complaints. Recent Cologuard negative. No Known Allergies Current Outpatient Medications on File Prior to Visit Medication Sig Dispense Refill aspirin 81 MG EC tablet Take 1 tablet by mouth daily. cholecalciferol (Vitamin D-3) 25 MCG (1000 UT) tablet Take 1 tablet by mouth daily. Multiple Vitamin (Multi-Vitamin) tablet Take 1 tablet by mouth in the morning. [DISCONTINUED] atorvastatin (Lipitor) 10 MG tablet TAKE 1 TABLET BY MOUTH EVERY DAY EVENING AFTER SUPPER [DISCONTINUED] metoprolol succinate XL (Toprol-XL) 100 MG 24 hr tablet Take 100 mg by mouth daily. [DISCONTINUED] spironolactone (Aldactone) 50 MG tablet Take 50 mg by mouth daily. No current facility-administered medications on file prior to visit. Patient Active Problem List Diagnosis Family history of breast cancer Hypercholesterolemia Family history of Alzheimer's disease Essential hypertension Cerebral palsy, hemiplegic (CMS/HCC) (HCC) Social History Tobacco Use Smoking status: Never Smokeless tobacco: Never Substance Use Topics Alcohol use: No Alcohol/week: 0.0 standard drinks Past Surgical History: Procedure Laterality Date BREAST BIOPSY Right TENDON RELEASE Left Family History Problem Relation Name Age of Onset Hypertension Mother advanced dementia 85 in 01/19 Dementia Mother 78 Hypertension Father CRF Coronary artery disease Father smoker Prostate cancer Father at age 81, in 2013 Other ([id number]) Sister Ama howard ds, [place] Breast cancer Maternal Grandmother Joi Yanez Objective: BP 130/86 (BP Location: Left arm, Patient Position: Sitting, BP Cuff Size: Large adult) Pulse 87 Temp 36.7 C (98 F) (Temporal) Ht 5' 2 (1.575 m) Wt 146 lb (66.2 kg) SpO2 99% BMI 26.70 kg/m Physical Exam The physical exam is generally normal. Patient appears well, alert and oriented x 3, pleasant, cooperative. Vitals are as noted. No carotid bruits. Neck supple, no abnormal adenopathy, thyroid lesions or masses. Ears, nose and throat are normal without acute findings. Lungs are clear to auscultation. Heart is regular, without murmurs, gallops or ectopy. Abdomen is soft, non tender, without masses, hepatosplenomegaly, or bruits. Normal BS evident. Extremities are normal without edema. Peripheral pulses are fair. No worrisome skin lesions. No change in hemiaplegia Assessment / Plan: José was seen today for 6 month follow-up. Diagnoses and all orders for this visit: Essential hypertension (Primary) - CBC auto differential; Future - Comprehensive metabolic panel; Future - CBC auto differential - Comprehensive metabolic panel Cerebral palsy, hemiplegic (CMS/HCC) (HCC) Hypercholesterolemia - Lipid panel; Future - Lipid panel Other orders - atorvastatin (Lipitor) 10 MG tablet; TAKE 1 TABLET BY MOUTH EVERY DAY EVENING AFTER SUPPER - metoprolol succinate XL (Toprol-XL) 100 MG 24 hr tablet; Take 1 tablet (100 mg) by mouth daily for 90 doses. - spironolactone (Aldactone) 50 MG tablet; Take 1 tablet (50 mg) by mouth daily. Stable hypertension, continue metoprolol and Aldactone, stable cholesterol, continue Lipitor, documented in this encounter [facility] [employer] 08-11-2022 Instructions Deion Estes DO - 08/11/2022 7:20 AM EST Fasting lab soon documented in this encounter [facility] Evaluation note No assessment inform ation available [facility] Work Phone: Evaluation note Diagnosis Essential hypertension- Primary Unspecified essential hypertension Breast cancer screening by mammogram Hypercholesterolemia Pure hypercholesterolemia [facility] Diagnosis Essential hypertension- Primary Unspecified essential hypertension Hypercholesterolemia Pure hypercholesterolemia Cerebral palsy, hemiplegic (CMS/HCC) (HCC) Hemiplegic infantile cerebral palsy [facility] Diagnosis Essential hypertension- Primary Unspecified essential hypertension Family history of breast cancer Family history of malignant neoplasm of breast Hypercholesterolemia Pure hypercholesterolemia Breast cancer screening by mammogram Elevated TSH Other abnormal blood chemistry [facility]* Diagnosis Elevated TSH- Primary Other abnormal blood chemistry [facility]* Diagnosis Essential hypertension Unspecified essential hypertension documented in this encounter [facility]* Diagnosis Essential hypertension Unspecified essential hypertension [facility]* Diagnosis Dysuria- Primary [facility] Diagnosis Dysuria- Primary Flank pain Abdominal pain, unspecified site Atypical nevus Benign neoplasm of skin, site unspecified [facility] Diagnosis Flank pain Abdominal pain, unspecified site [facility]* Diagnosis LLQ abdominal pain- Primary Abdominal pain, left lower quadrant [facility]* Diagnosis Left lower quadrant abdominal pain- Primary Urinary tract infection without hematuria, site unspecified Nausea Nausea alone [facility]* Diagnosis Left lower quadrant abdominal pain- Primary Elevated blood pressure reading in office with diagnosis of hypertension Essential hypertension Unspecified essential hypertension [facility]* Diagnosis Left lower quadrant abdominal pain- Primary Elevated blood pressure reading in office with diagnosis of hypertension Essential hypertension Unspecified essential hypertension Encounter for initial annual wellness visit (AWV) in Medicare patient- Primary Medicare welcome visit Essential hypertension Unspecified essential hypertension Acquired hypothyroidism Unspecified hypothyroidism Hypercholesterolemia Pure hypercholesterolemia Cerebral palsy, hemiplegic (CMS/HCC) (HCC) Hemiplegic infantile cerebral palsy Cervical paraspinal muscle spasm Spasm of muscle Routine general medical examination at health care facility Routine general medical examination at a health care facility [facility] Diagnosis Essential hypertension- Primary Unspecified essential hypertension Cerebral palsy, hemiplegic (CMS/HCC) (HCC) Hemiplegic infantile cerebral palsy Hypercholesterolemia Pure hypercholesterolemia [facility] Diagnosis Left lower quadrant abdominal pain- Primary Elevated blood pressure reading in office with diagnosis of hypertension Essential hypertension Unspecified essential hypertension Essential hypertension- Primary Unspecified essential hypertension Acquired hypothyroidism Unspecified hypothyroidism Hypercholesterolemia Pure hypercholesterolemia Cerebral palsy, hemiplegic (CMS/HCC) (HCC) Hemiplegic infantile cerebral palsy [facility] Diagnosis Left lower quadrant abdominal pain- Primary Elevated blood pressure reading in office with diagnosis of hypertension Essential hypertension Unspecified essential hypertension Breast cancer screening by mammogram- Primary [facility]* Attachments The following attachments cannot be sent through Care Everywhere. * Urinary Tract Infection Discharge Instructions, Adult (Turkmen) * Severe Abdominal Pain Discharge Instructions, Adult (Turkmen) * Cephalexin, ADULT (Turkmen) * Ondansetron, ADULT (Turkmen) [facility] Consultation (Routine) - Pending Review Specialty Diagnoses / Procedures Referred By Ana kendrick Referred To Contact Dermatology Diagnoses Atypical nevus Procedures [place] OFFICE/OUTPATIENT [facility] 60 MINUTES Mimi Zepeda DO [address] [place] [address] Marisabel Duong MD [facility] [address] [place] [address] Referral ID Status Reason Start Date Expiration Date Visits Requested Visits Authorized [id number] Pending Review Specialty Services Required 05/03/2024 05/03/2025 1 1 [facility] Chief Complaint and Reason for Visit Chief Complaint SCREENING Summary Purpose Family History No Family History Records FoundNo Family History Records FoundNo Family History Records Found Advance Directives No Advanced Directives Records FoundNo Advanced Directives Records FoundNo Advanced Directives Records Found Reason for Referral Specialty Diagnoses / Procedures Referred By Contac t Referred To Contact Radiology Diagnoses LLQ abdominal pain Procedures CT abdomen pelvis w contrast Mimi Zepeda DO [address] [facility] [address] [place] [address] Referral ID Status Reason Start Date Expiration Date V isits Requested Visits Authorized [id number] Pending Review 05/04/2024 05/04/2025 1 1 Specialty Diagnoses / Procedures Referred By Contac t Referred To Contact Diagnoses Nausea Ed Gonzalez MD [address] [place] [address] Referral ID Status Reason Start Date Expiration Date Visits Re quested Visits Authorized [id number] Closed 1 1 Additional Source Comments Goals (unrecognized section and content) Goals may be documented in a n alternate sectionGoals may be documented in an alternate section Reason for Visit (unrecogniz ed section and content) Reason Comments Follow-up 6 month med check Reason Comments Med Refill Reason Comments Follow-up Reason Onset Date Comments Med Refill 03/15/2024 Reason Comments Blood Pressure Check Reason Onset Date Comments Results 03/17/2024 Reason Comments UTI Started this morning pain frequency, and odor. No otc medication. Reason Comments Results Reason Comments UTI Patient was seen see n at [facility] Thursday morning she is still taking the macrobid. They told her she does not have a UTI she is still having symptoms Flu Vaccine Patient has declined to receive influenza vaccine in the office. Reason Onset Date Comments Medication Question 05/04/2024 Reason Comments Abdominal Pain Reason Comments ER Follow-up For a UTI Flu Vaccine Patient has declined to receive influenza vaccine in the office. Reason Onset Date Comments Abdominal Pain 05/15/2024 Reason Comments Welcome To Medicare Flu Vaccine Reason Comments 6 Month Follow-up Reason Onset Date Comments Discuss Medications 07/04/2024 Pt stated th e baclofen is helping slowly Reason Comments Follow-up Med Check Care Teams (unrecognized sec tion and content) Information Coordinator Relationship Specialty Start Date End Date Deion Estes DO [address] [place] [id number] PCP - General 09/19/15 Team Status: Active Member Role Status Dates Dr. Deion Estes DO Family Provider Active Dr. Deion Estes DO Primary Care Provider Active Team Status: Inactive Member Role Status Dates Dr. Deion Estes DO Primary Care Pr ovider, Attending Provider, Referring Provider Active Information Coordinator Relationship Specialty Start Date End Date Deion Estes, DO [address] [place] [phone] PCP - General 09/19/15 Information Coordinator Relationship Specialty Start Date End Date Deion Estes, DO [address] [place] [phone] PCP - General 09/19/15 Information Coordinator Relationship Specialty Start Date End Date Deion Estes, DO [address] [place] [phone] PCP - General 09/19/15 Information Coordinator Relationship Specialty Start Date End Date ChristopherDeion mead, DO [address] [place] [phone] PCP - General 09/19/15 Information Coordinator Relationship Specialty Start Date End Date Deion Estes, DO [address] [place] [phone] PCP - General 09/19/15 Information Coordinator Relationship Specialty Start Date End Date ChristopherDeion mead, DO [address] [place] [phone] PCP - General 09/19/15 Information Coordinator Relationship Specialty Start Date End Date OksanaDeion dean, DO [address] [place] [phone] PCP - General 09/19/15 Information Coordinator Relationship Specialty Start Date End Date Meera Deion Augustin, DO [address] [place] [address] PCP - General 09/19/15 Information Coordinator Relationship Specialty Start Date End Date Meera Deion Augustin, DO [address] [place] [address] PCP - General 09/19/15 Information Coordinator Relationship Specialty Start Date End Date Meera Deion Augustin, DO [address] [place] [address] PCP - General 09/19/15 Information Coordinator Relationship Specialty Start Date End Date Meera Deion Augustin, DO [address] [place] [address] PCP - General 09/19/15 Information Coordinator Relationship Specialty Start Date End Date Meera Deion Augustin, DO [address] [place] [address] PCP - General 09/19/15 Information Coordinator Relationship Specialty Start Date End Date Meera Deion Augustin, DO [address] [place] [address] PCP - General 09/19/15 Information Coordinator Relationship Specialty Start Date End Date Meera Deion Augustin, DO [address] [place] [place] [address] PCP - General 09/19/15 Information Coordinator Relationship Specialty Start Date End Date Deion Estes, DO [address] [place] [address] PCP - General 09/19/15 Information Coordinator Relationship Specialty Start Date End Date Deion Estes DO [address] [facility] [place] [address] PCP - General 09/19/15 Information Coordinator Relationship Specialty Start Date End Date Deion Estes DO [address] [place] [address] PCP - General 09/19/15 Information Coordinator Relationship Specialty Start Date End Date Deion Estes DO [address] [place] [address] PCP - General 09/19/15 Information Coordinator Relationship Specialty Start Date End Date Deion Estes DO [address] [place] [address] PCP - General 09/19/15 Source Comments (unrecognize d section and content) In the event this informatio n is protected by the Federal Confidentiality of Alcohol and Drug Abuse Patient Records regulations: The Federal rules restrict any use of the information to criminally investigate or prosecute any alcohol or drug abuse patient.[facility] the event this information is protected by the Federal Confidentiality of Alcohol and Drug Abuse Patient Records regulations: The Federal rules restrict any use of the information to criminally investigate or prosecute any alcohol or drug abuse patient.[facility] INFORMATION SOURCE (unrecogn ized section and content) DATE CREATED AUTHOR 05/03/2024 [facility] DATE CREATED AUTHOR AUTHOR'S ORGANIZ ATION 04/11/2025 [facility] DATE CREATED AUTHOR AUTHOR'S ORGANIZ ATION 04/12/2025 [facility] Scheduled Active and Recently Administ ered Medications (unrecognized section and content) Medication Order 05/13/2024 05/14/2024 05/15/2024 cefTRIAXone (Rocephin) 1,000 mg in sodium chloride 0.9 % 50 mL IVPB Mini-Bag Plus (COMPLETED) 1,000 mg, IntraVENous, at 100 mL/hr, Administer over 30 Minutes, Once, On 05/15/24 at 0810, For 1 dose, Mini-Bag Plus bag, Suspected Indication (Select all that apply): Urinary Tract Infection 0822 (New Bag - Prov ider: Poonam Diaz RN)0852 (Stopped - Provider: Poonam Diaz RN) ondansetron (Zofran) injection 4 mg (COMPLETED) 4 mg, IntraVENous, Once, On 05/15/24 at 0745, For 1 dose 0747 (Given - Provid er: Poonam Diaz RN) FOR RECORDS PERTAINING TO PATIENTS WHO ARE OR HAVE BEEN ENROLLED IN A CHEMICAL DEPENDENCY/SUBSTANCEABUSE PROGRAM, SOME INFORMATION MAY BE OMITTED. This clinical summary was aggregated from multiple sources. Caution should be exercised in using it in the provision of clinical care. This summary normalizes information from multiple sources, and as a consequence, information in this document may materially change the coding, format and clinical context of patient data. In addition, data may be omitted in some cases. CLINICAL DECISIONS SHOULD BE BASED ON THE PRIMARY CLINICAL RECORDS. [employer] [facility]. provides no warranty or guarantee of the accuracy or completeness of information in this document.
== END | disposition home or self-care (01) ==
LOC: OPBI 07:22
PROVIDERS: PCP Family Medicine; Referring Provider Family Medicine; Visit Provider Family Medicine
DX: Z12.31 Encounter for screening mammogram for malignant neoplasm of breast (principal); Z80.3 Family history of malignant neoplasm of breast
CPT/HCPCS: 77063; 77067

== ENCOUNTER → 2025-04-24 | Outpatient (CLI) | payer MEDICARE, SELFPAY ==
[2025-04-24 11:17] LABS: Anion Gap 12 (5-15); BUN 23 mg/dL (4-19); BUN/Creat Ratio 22.2 RATIO (10-20); Calcium,Total 10.2 mg/dL (7.6-11.0); Carbon Dioxide 24.0 mmol/L (21.0-32.0); Chloride 102 mmol/L (98-108); Cholesterol 148 mg/dL (<=200); Free T3 3.1 pg/mL (2.18-3.98); Glucose 99 mg/dL (70-99); Low Density Lipoprotein Calc. 70 mg/dL; Potassium 4.0 mmol/L (3.3-5.1); Triglycerides 80 mg/dL; Very Low Density Lipoprotein 16 mg/dL (5-40); cholesterol:hdl ratio screen 2.38
== END | disposition home or self-care (01) ==
LOC: MFPLAB 08:07
PROVIDERS: PCP Family Medicine; Visit Provider Family Medicine
DX: Z00.00 Encounter for general adult medical examination without abnormal findings (principal); E03.9 Hypothyroidism, unspecified; I10 Essential (primary) hypertension
CPT/HCPCS: 36415; 80048; 80061; 84439; 84443; 84481